=== PATIENT | female | born 1970 | race African-American/Black ===

== ENCOUNTER 2019-08-11 16:40 | Emergency (ER) | payer OTHER ==
--- NOTE | 2019-08-11 17:03 | PDOC ---
Attending Attestation - Resident Resident Name: PrestonValentin - ED Attending Attestation I have performed the following: I have examined & evaluated the patient, The case was reviewed & discussed with the resident, I agree w/resident's findings & plan, Exceptions are as noted - HPI HPI: 08/11/19 17:47 48yo female from [facility] sent in by Dr. Montano for eval of low bp and confusion in the office. Pt arrives aaox3, bp stable, HR 80s. Pt states she has been in a nh since having a spine surgery that went wrong at [facility] in the past. 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 Pt currently denies limon, cp/sob, no cough, no dysuria. no n/v/d, no abd pain. Pt denies all other complaints. Per the notes, pt had rectal bleeding in the spring - is on eliquis, and today was seen in the GI office where her bp was apparently low. Sent to the ER for further evaluation. - Physicial Exam PE: 08/11/19 17:56 Gen: aaox3, resting tremor to hands heent: MMM, posterior pharynx clear, PERRL, EOMI Neck: supple back: thoracic midline incision is well healed, no drainage rectal: no masses, no hemorrhoids, light brown soft stool ext: extended LE, paralyzed legs, tremor to UE b/l - Medical Decision Making 08/11/19 18:02 a/p: 48yo female sent from Dr. Montano for eval of low bp -bp stable -has a hx of rectal bleeding on eliquis - will send labs, h/h, stool for heme -will obtain ekg -will monitor and reassess -pt is awake, alert, oriented, nontoxic in appearance 08/13/19 20:34 pt was signed out to the night team pending labs and further eval
[2019-08-11 17:16] VITALS: BMI 31.8
--- NOTE | 2019-08-11 17:27 | PDOC ---
History of Present Illness - General Chief Complaint: Rectal Bleed Stated Complaint: GI BLEED Time Seen by Provider: 08/11/19 16:53 - History of Present Illness Initial Comments: 08/11/19 17:40 Pt is a 48 y/o F resident of [facility] with a documented PMH of paranoid schizophrenia, Hypertension, NIDDM, essential tremor, GERD, CHF, seizure d/o, paraplegia, and Vitamin D deficiency who presents to our Emergency Department from her [facility] physician's office-Dr Montano. Pt was reportedly hypotensive at 75 systolic and appeared altered during visit. Pt was initially referred to the [facility] physician by [facility] due to rectal bleeding in December of this year. Pt denies chest pain, shortness of breath, n/v/d, dysuria or abdominal pain. Past History - Past Medical History Allergies/Adverse Reactions: Allergies Allergy/AdvReac Type Severity Reaction Status Date / Time No Known Allergies Allergy Verified 08/11/19 16:52 Home Medications: Ambulatory Orders Acetaminophen [8Hr Arthritis Pain Relief] 650 mg PO BID PRN 08/11/19 Apixaban [Eliquis] 5 mg PO BID 08/11/19 Ascorbate Calcium [Vitamin C] 500 mg PO DAILY 08/11/19 Aspirin [ASA -] 81 mg PO DAILY 08/11/19 Baclofen [Lioresal -] 10 mg PO DAILY 08/11/19 Ergocalciferol (Vitamin D2) [Vitamin D2] 50,000 unit PO WEEKLY 08/11/19 Furosemide [Lasix] 40 mg PO BID 08/11/19 Gabapentin [Neurontin] 100 mg PO BID 08/11/19 Honey/Hydrocolloid Dressing [[facility] 2.4"X2.4" Drssng] 1 each TP BID 08/11 Levothyroxine [Synthroid -] 25 mcg PO DAILY 08/11/19 Metformin HCl [Glucophage] 500 mg PO BID 08/11/19 Methyl Salicylate/Menthol [Muscle Rub Cream] 1 applic TP BID PRN 08/11/19 Metoprolol Succinate [Toprol Xl] 25 mg PO DAILY 08/11/19 Petrolatum,White/Lanolin [Vitamin A & D Ointment] 454 gm TP BID PRN 08/11/19 Polyvinyl Alcohol [Artificial Tears] 15 ml OP BID 08/11/19 Risperidone [Risperdal] 1 mg PO BID 08/11/19 Spironolactone [Aldactone] 25 mg PO DAILY 08/11/19 Tizanidine HCl 4 mg PO TID 08/11/19 Valproic Acid [Depakene] 250 mg PO BID 08/11/19 Zinc Oxide 20% Topical Oint 454 gm NR BID PRN 08/11/19 Nitrofurantoin Monohyd/M-Cryst [Macrobid -] 100 mg PO BID 5 Days #9 capsule 02/23 - Psycho Social/Smoking Cessation Hx Smoking History: Unknown if ever smoked Hx Alcohol Use: No Drug/Substance Use Hx: No Review of Systems - Review of Systems Constitutional: No: Fever Respiratory: No: Shortness of Breath Cardiac (ROS): No: Chest Pain ABD/GI: No: Constipated, Diarrhea : No: Dysuria *Physical Exam - Vital Signs Last Vital Signs Temp Pulse Resp BP Pulse Ox 97.4 F L 77 14 111/81 97 08/11/19 16:40 08/11/19 16:40 08/11/19 16:40 08/11/19 16:40 08/11/19 16:40 - Physical Exam Comments: 08/11/19 18:18 AAOx3 NAD RRR S1S2 CTA b/l NDNT No facial grimacing to deep palpation Back: Midline surgical scar-well healed. Rectal: No masses or visualized blood (performed by Dr Byrd) EXT: Tremors b/l upper extremities. No CCE lower extremities. Heart Score/ECG Review - ECG Impressions Comment:: 08/12/19 00:22 nl sinus rhythm. Possible anterior infarct, age undetermined. QTc 431. Markos rate 74. ED Treatment Course - LABORATORY CBC & Chemistry Diagram: 08/11/19 20:15 08/11/19 17:55 Medical Decision Making - Medical Decision Making 08/11/19 17:38 Will order CBC w/ diff, fecal occult, CMP, Pt/INR, Type and screen, ekg, cxr pending urine preg 08/11/19 17:53 Call has been placed out to Dr Montano who initially sent patient to our ED [facility] was also called who informed our team that pt today was at [facility] to be evaluated for a history of rectal bleeding (December 2018). Pt was subsequently sent to ED by [facility] doctor per [facility] staff. 08/11/19 18:[address] Montano, pt's systolic BP was 75 in office. Pt was also lethargic and appeared confused. 08/11/19 19:19 Lactic acid 2.4. Will order 1 L NS. 08/11/19 21:41 Pt's H/H wnl- .2 Stool occult negative. Blood pressure 111/81 on admission. 08/11/19 21:42 08/11/19 21:49 Repeat BP now 146/77. Will discharge back to [facility]. 08/11/19 23:01 CXR--> mild elevation hemidiaphragm and subsegmental atelectasis right lung base. 08/11/19 23:43 Urinalysis reveals 3+ Leuk Esterase + Nitrates. 08/11/19 23:45 will administer macrobid 100 once and send pt with prescription. 08/12/19 00:19 Signed out care to Dr Kern Discharge - Discharge Information Problems reviewed: Yes Clinical Impression/Diagnosis: Rectal bleed Condition: Improved Disposition: [facility] FACILITY - Admission No - Additional Discharge Information Prescriptions: Nitrofurantoin Monohyd/M-Cryst [Macrobid -] 100 mg PO BID 5 Days #9 capsule - Follow up/Referral Referrals: Hema Babcock [Non Staff, Medical] - - Patient Discharge Instructions Patient Printed Discharge Instructions: DI for Hypotension Additional Instructions: You were evaluated in our Emergency Department for low blood pressure and possible rectal bleeding. You did not have any rectal bleeding. Your pressure has been within normal range. Please follow up with your primary care doctor this week. You were found to have a urinary tract infection. You have been prescribed an antibiotic- Macrobid. Please take this medication as prescribed. You have received 1 dose while you were in our Emergency Department. Please return to the Emergency Department if your begin to experience any abnormal symptoms including but not limited to chest pain, shortness of breath, nausea/vomiting, fever, chills, or rectal bleeding. - Post Discharge Activity
[2019-08-11 18:52] LABS: ALBUMIN 3.5 g/dl (3.4-5.0); BILIRUBIN,TOTAL 0.3 mg/dL (0.2-1); BLOOD UREA NITROGEN 8.5 mg/dL (7-18); CALCIUM 9.4 mg/dL (8.5-10.1); CREATININE 0.9 mg/dL (0.55-1.3); POTASSIUM 4.1 mmol/L (3.5-5.1); TOT PROT 7.6 g/dl (6.4-8.2)
[2019-08-11] MEDS ORDERED: SODIUM CHLORIDE 1,000 ML IV STA (19:18)
[2019-08-11 19:39] LABS: INR 1.14 (0.83-1.09); PROTHROMBIN TIME (PATIENT) 13.5 SEC (9.7-13.0)
[2019-08-11 19:42] LABS: ACTIVATED PTT 41.3 SECONDS (25.2-36.5)
[2019-08-11 20:37] LABS: BASO % 0.5 % (0-2.0); EOS % 0.7 % (0-4.5); HEMATOCRIT 33.2 % (32.4-45.2); LYMPH % 32.3 % (8-40); MCH 31.3 pg (25.7-33.7); MCHC 33.1 g/dl (32.0-36.0); MEAN CELL VOLUME 94.8 fl (80-96); MEAN PLT VOLUME 8.1 fl (7.5-11.1); MONO % 6.7 % (3.8-10.2); NEUT % 59.8 % (42.8-82.8); PLATELET COUNT 293 K/MM3 (134-434); WHITE BLOOD COUNT 8.6 K/mm3 (4.0-10.0)
[2019-08-11 23:35] LABS: EPI CELLS 0.4 /HPF (0-5/HPF); HYALINE CASTS 14 /lpf (0-8); URINE APPEARANCE CLOUDY; URINE BACTERIA 2902.3 /hpf (NEGATIVE); URINE BILIRUBIN NEGATIVE (NEGATIVE); URINE COLOR YELLOW; URINE GLUCOSE (UA) NEGATIVE (NEGATIVE); URINE KETONE NEGATIVE (NEGATIVE); URINE LEUK ESTERASE 3+ (NEGATIVE); URINE NITRITE POSITIVE (NEGATIVE); URINE PROTEIN NEGATIVE (NEGATIVE); URINE RBC 3 /hpf (0-4); URINE WBC 177 /hpf (0-5)
[2019-08-11] MEDS ORDERED: NITROFURANTOIN MACROCRYSTAL 50 MG CAPSULE (FP) PO SCH (23:45)
[2019-08-11] MEDS ORDERED: NITROFURANTOIN MACROCRYSTAL 50 MG CAPSULE (FP) ONE (23:53)
[2019-08-12 01:13] VITALS: BP 136/83; PULSE 72; TEMP 98.4
--- NOTE | 2019-08-12 09:17 | EKG ---
Test Reason : Blood Pressure : / mmHG Vent. Rate : 076 BPM Atrial Rate : 076 BPM P-R Int : 124 ms QRS Dur : 074 ms QT Int : 350 ms P-R-T Axes : 021 -24 -31 degrees QTc Int : 393 ms Poor data quality Cannot asses rhythm POSSIBLE ANTERIOR INFARCT (CITED ON OR BEFORE 04-AUG-2010) ABNORMAL ECG Confirmed by MD Miriam, Alok ([id number]) on 08/12/2019 9:17:04 AM Referred By: Confirmed By:Alok Pineda MD
== END 2019-08-12 01:45 ==
LOC: JER 16:40
PROC: 3E0337Z Introduction of Electrolytic and Water Balance Substance into Peripheral Vein, Percutaneous Approach (ICD-10-PCS; principal; 2019-08-11)
DX: I95.9 Hypotension, unspecified (principal); K62.5 Hemorrhage of anus and rectum; I11.0 Hypertensive heart disease with heart failure; I50.9 Heart failure, unspecified; E11.9 Type 2 diabetes mellitus without complications; Z79.84 Long term (current) use of oral hypoglycemic drugs; K21.9 Gastro-esophageal reflux disease without esophagitis; G25.0 Essential tremor; E03.9 Hypothyroidism, unspecified; F20.0 Paranoid schizophrenia; G40.909 Epilepsy, unspecified, not intractable, without status epilepticus; E55.9 Vitamin D deficiency, unspecified; G82.20 Paraplegia, unspecified
CPT/HCPCS: 36415; 71045-TC-FY; 80053; 80164; 81003; 82272; 82962; 83605; 84703; 85025; 85610; 85730; 86850; 86900; 86901; 87040; 87077; 87086; 87186; 93005; 93010; 96360; 99284-25; J7030

== ENCOUNTER 2022-06-19 20:17 | Emergency (ER) | payer OTHER ==
[2022-06-19 20:30] VITALS: BMI 26.4
[2022-06-19 21:45] LABS: BASO % 0.3 % (0-2.0); EOS % 0.6 % (0-4.5); HEMATOCRIT 30.2 % (32.4-45.2); HEMOGLOBIN 9.6 GM/dL (10.7-15.3); LYMPH % 26.6 % (8-40); MCH 28.6 pg (25.7-33.7); MCHC 31.9 g/dl (32.0-36.0); MEAN CELL VOLUME 89.9 fl (80-96); MEAN PLT VOLUME 7.9 fl (7.5-11.1); MONO % 9.4 % (3.8-10.2); NEUT % 63.1 % (42.8-82.8); PLATELET COUNT 188 10^3/uL (134-434); RBC 3.36 M/mm3 (3.60-5.2); RDW 17.4 % (11.6-15.6); WHITE BLOOD COUNT 8.1 K/mm3 (4.0-10.0)
[2022-06-19 22:13] LABS: CHLORIDE 104 mmol/L (98-107); SODIUM 141 mmol/L (136-145)
[2022-06-19 22:15] LABS: ALBUMIN 2.8 g/dl (3.4-5.0); CALCIUM 8.7 mg/dL (8.5-10.1)
[2022-06-19 22:16] LABS: ANION GAP 7 MMOL/L (8-16); BLOOD UREA NITROGEN 10.9 mg/dL (7-18); CO2 29 mmol/L (21-32); GLUCOSE,RANDOM 103 mg/dL (74-106)
[2022-06-19 22:18] LABS: SGPT/ALT 7 U/L (13-61)
[2022-06-19 22:19] LABS: CREATININE 0.7 mg/dL (0.55-1.3); SGOT/AST 9 U/L (15-37)
[2022-06-19 22:20] LABS: BILIRUBIN,TOTAL 0.3 mg/dL (0.2-1); TOT PROT 6.6 g/dl (6.4-8.2)
[2022-06-19 22:21] LABS: ALK PHOS 58 U/L (45-117)
[2022-06-19 22:30] LABS: URINE APPEARANCE CLEAR; URINE BILIRUBIN NEGATIVE (NEGATIVE); URINE COLOR YELLOW; URINE GLUCOSE (UA) NEGATIVE (NEGATIVE); URINE KETONE NEGATIVE (NEGATIVE); URINE LEUK ESTERASE NEGATIVE (NEGATIVE); URINE NITRITE NEGATIVE (NEGATIVE); URINE PROTEIN NEGATIVE (NEGATIVE)
[2022-06-19] MEDS ORDERED: MAG HYDROX/AL HYDROX/SIMETH -MYLANTA- ORAL SUSPENSION PO ONE (23:46)
[2022-06-19] MEDS ORDERED: FAMOTIDINE 20 MG/50 ML IVPB 20 MG/50 ML MG IVPB ONE ×2 (23:46→23:58)
[2022-06-19] MEDS ORDERED: ACETAMINOPHEN 1000 MG/100 ML BAG IVPB ONE (23:47)
[2022-06-19] MEDS ORDERED: risperiDONE 1 MG TABLET PO ONE (23:52)
[2022-06-19] MEDS ORDERED: risperiDONE 0.5 MG TABLET ONE (23:57)
[2022-06-19] MEDS ORDERED: ACETAMINOPHEN INJECTION 100 ML IVPB ONE (23:58)
[2022-06-19] MEDS ORDERED: MAG HYDROX/AL HYDROX/SIMETH 30 ML UNIT-DOSE CUP ONE (23:58)
[2022-06-20] MEDS ORDERED: MAGNESIUM SULF 50% (8.12 MEQ/2 ML-1 GM VIAL) IVPB ONE (00:06)
[2022-06-20] MEDS ORDERED: MAGNESIUM SULFATE IN WATER 2 GM/50 ML IVPB IVPB ONE (00:09)
[2022-06-20 01:29] VITALS: BP 95/76; PULSE 88; RESP 17; TEMP 98.6
== END 2022-06-20 04:15 | disposition home or self-care (01) ==
LOC: JER 20:17
PROC: 3E033GC Introduction of Other Therapeutic Substance into Peripheral Vein, Percutaneous Approach (ICD-10-PCS; principal; 2022-06-19)
DX: R07.9 Chest pain, unspecified (principal)
CPT/HCPCS: 0241U-QW; 36415; 71045-TC-FY; 80053; 81003; 84484; 84703; 85025; 87086; 93005; 93010; 99285-25

== ENCOUNTER 2022-08-27 17:00 | Inpatient (IN) | payer OTHER ==
[2022-08-27 18:35] LABS: INR 1.36 (0.83-1.09); PROTHROMBIN TIME (PATIENT) 15.7 SEC (9.7-13.0)
[2022-08-27 18:38] LABS: ACTIVATED PTT 33.4 SECONDS (25.2-36.5); BASO % 0.2 % (0-2.0); EOS % 0.7 % (0-4.5); HEMATOCRIT 18.1 % (32.4-45.2); LYMPH % 24.9 % (8-40); MCH 28.8 pg (25.7-33.7); MCHC 31.3 g/dl (32.0-36.0); MEAN PLT VOLUME 7.7 fl (7.5-11.1); NEUT % 62.2 % (42.8-82.8); PLATELET COUNT 278 10^3/uL (134-434); RBC 1.97 M/mm3 (3.60-5.2); RDW 18.1 % (11.6-15.6); WHITE BLOOD COUNT 9.2 K/mm3 (4.0-10.0)
[2022-08-27 18:39] LABS: HEMOGLOBIN 5.7 GM/dL (10.7-15.3)
[2022-08-27 18:45] LABS: CHLORIDE 105 mmol/L (98-107); SODIUM 141 mmol/L (136-145)
[2022-08-27 18:48] LABS: ALBUMIN 1.3 g/dl (3.4-5.0); ANION GAP 6 MMOL/L (8-16); CALCIUM 7.3 mg/dL (8.5-10.1); CO2 30 mmol/L (21-32); GLUCOSE,RANDOM 108 mg/dL (74-106)
[2022-08-27 18:51] LABS: CREATININE 0.3 mg/dL (0.55-1.3); SGOT/AST 8 U/L (15-37); SGPT/ALT < 6 U/L (13-61)
[2022-08-27 18:53] LABS: BILIRUBIN,TOTAL 0.2 mg/dL (0.2-1); TOT PROT 4.7 g/dl (6.4-8.2)
[2022-08-27 18:55] LABS: ALK PHOS 56 U/L (45-117)
[2022-08-27] MEDS ORDERED: AZITHROMYCIN IVPB 500 MG in DEXTROSE 5%-WATER - 250 ML IVPB ONE (19:45)
[2022-08-27] MEDS ORDERED: CEFTRIAXONE 1,000 MG in DEXTROSE 5%-WATER - 50 ML IVPB ONE (19:45)
[2022-08-27] MEDS ORDERED: VANCOMYCIN 1,000 MG in DEXTROSE 5%-WATER - 250 ML IVPB SCH (22:45)
[2022-08-27] MEDS ORDERED: BENZTROPINE MESYLATE 0.5 MG TABLET (FP) PO SCH (22:55)
[2022-08-27] MEDS ORDERED: VANCOMYCIN/WATER FOR INJ (PEG) 1,000 MG/200 ML BAG IVPB SCH (23:00)
[2022-08-27] MEDS ORDERED: BENZTROPINE MESYLATE 1 MG TABLET PO SCH (23:00)
[2022-08-27] MEDS ORDERED: VANCOMYCIN PREMIX 1.5 GM 1,500 MG/300 ML BAG IVPB ONE (23:45)
[2022-08-28] MEDS ORDERED: PIPERACILLIN/TAZOB 3.375 GM 3.375 GM/50 ML BAG IVPB ONE ×3 (00:08→08:53)
[2022-08-28] MEDS: PIPERACILLIN/TAZOB 3.375 GM 3.375 GM in DEXTROSE 5%-WATER - 50 ML IVPB SCH ×5 (00:13→22:06)
[2022-08-28] MEDS ORDERED: GABAPENTIN 100 MG CAPSULE ONE (00:17)
[2022-08-28] MEDS: GABAPENTIN 100 MG CAPSULE PO SCH ×3 (00:25→22:13)
[2022-08-28] MEDS: BENZTROPINE MESYLATE 0.5 MG TABLET (FP) PO SCH ×3 (00:25→22:19)
[2022-08-28] MEDS: VALPROIC ACID 250 MG CAPSULE PO SCH ×3 (00:25→23:08)
[2022-08-28] MEDS: risperiDONE 1 MG TABLET PO SCH ×3 (00:25→22:13)
[2022-08-28 00:51] LABS: RETICULOCYTES 1.81 % (0.5-1.5)
[2022-08-28] MEDS ORDERED: PIPERACILLIN/TAZOB 3.375 GM 3.375 GM in DEXTROSE 5%-WATER - 50 ML IVPB SCH (02:00)
[2022-08-28 02:37] LABS: IRON SERUM 15 ug/dL (50-175); TOTAL IRON BINDING CAPACITY 149 ug/dL (250-450)
[2022-08-28 03:25] LABS: LDH 210 U/L (84-246)
[2022-08-28 07:26] LABS: BASO % 0.2 % (0-2.0); EOS % 0.8 % (0-4.5); HEMATOCRIT 25.2 % (32.4-45.2); HEMOGLOBIN 8.5 GM/dL (10.7-15.3); LYMPH % 29.5 % (8-40); MCH 30.8 pg (25.7-33.7); MCHC 33.8 g/dl (32.0-36.0); MEAN CELL VOLUME 91.1 fl (80-96); MEAN PLT VOLUME 7.3 fl (7.5-11.1); MONO % 11.1 % (3.8-10.2); NEUT % 58.4 % (42.8-82.8); PLATELET COUNT 264 10^3/uL (134-434); RBC 2.77 M/mm3 (3.60-5.2); RDW 15.4 % (11.6-15.6); WHITE BLOOD COUNT 10.1 K/mm3 (4.0-10.0)
[2022-08-28 07:41] LABS: CHLORIDE 104 mmol/L (98-107); SODIUM 141 mmol/L (136-145)
[2022-08-28 07:54] LABS: ALBUMIN 1.3 g/dl (3.4-5.0); ANION GAP 8 MMOL/L (8-16); BLOOD UREA NITROGEN 8.1 mg/dL (7-18); CO2 29 mmol/L (21-32)
[2022-08-28 07:55] LABS: GLUCOSE,RANDOM 90 mg/dL (74-106); MAGNESIUM 2.3 mg/dL (1.8-2.4)
[2022-08-28 07:57] LABS: BILIRUBIN,TOTAL 0.5 mg/dL (0.2-1); CREATININE 0.3 mg/dL (0.55-1.3); TOT PROT 4.7 g/dl (6.4-8.2)
[2022-08-28 07:58] LABS: SGOT/AST 6 U/L (15-37)
[2022-08-28 08:00] LABS: ALK PHOS 54 U/L (45-117)
[2022-08-28 08:04] LABS: SGPT/ALT < 6 U/L (13-61)
[2022-08-28] MEDS: INSULIN SLIDING SCALE (NOVOLOG) 1 VIAL SQ SCH ×4 (08:51→22:18)
[2022-08-28] MEDS ORDERED: LEVOTHYROXINE NA 25 MCG TABLET (FP) ONE (09:25)
[2022-08-28] MEDS: LEVOTHYROXINE NA 25 MCG TABLET (FP) PO SCH (09:30)
[2022-08-28] MEDS ORDERED: VANCOMYCIN PREMIX 1.5 GM 1,500 MG/300 ML BAG IVPB SCH (11:00)
[2022-08-28] MEDS: FERROUS SO4 325 MG TABLET (FP) PO SCH (11:18)
[2022-08-28] MEDS: metoPROLOL SUCCINATE 25 MG TAB.SR.24H (FP) PO SCH (11:18)
[2022-08-28] MEDS: COLLAGENASE CLOSTRIDIUM HIST. 30 GRAMS TUBE TP SCH (11:19)
[2022-08-28] MEDS: SPIRONOLACTONE 25 MG TABLET PO SCH (11:19)
[2022-08-28] MEDS: ZINC OXIDE 20% TOPICAL OINTMENT 30 GM TUBE TP SCH ×2 (11:27→22:21)
[2022-08-28] MEDS: ATORVASTATIN CA 10 MG TABLET (FP) PO SCH (22:13)
[2022-08-28] MEDS: PRIMIDONE 50 MG TABLET PO SCH (22:20)
[2022-08-28] MEDS: VALPROATE SODIUM 250 MG/5 ML UNIT DOSE CUP PO SCH (22:32)
[2022-08-28] MEDS: VANCOMYCIN HCL 1,500 MG in DEXTROSE 5%-WATER - 250 ML IVPB SCH (23:07)
[2022-08-28] MEDS: BENZOCAINE/MENTH/CETYLPYRD CL 1 EACH LOZENGE MM PRN (23:50)
[2022-08-29] MEDS: LEVOTHYROXINE NA 25 MCG TABLET (FP) PO SCH (06:25)
[2022-08-29] MEDS: INSULIN SLIDING SCALE (NOVOLOG) 1 VIAL SQ SCH ×4 (06:25→22:18)
[2022-08-29] MEDS: VALPROATE SODIUM 250 MG/5 ML UNIT DOSE CUP PO SCH ×2 (10:35→22:17)
[2022-08-29] MEDS: BENZTROPINE MESYLATE 0.5 MG TABLET (FP) PO SCH (10:36)
[2022-08-29] MEDS: GABAPENTIN 100 MG CAPSULE PO SCH ×2 (10:37→22:17)
[2022-08-29] MEDS: SPIRONOLACTONE 25 MG TABLET PO SCH (10:37)
[2022-08-29] MEDS: FERROUS SO4 325 MG TABLET (FP) PO SCH (10:37)
[2022-08-29] MEDS: risperiDONE 1 MG TABLET PO SCH ×2 (10:37→22:17)
[2022-08-29] MEDS: ZINC OXIDE 20% TOPICAL OINTMENT 30 GM TUBE TP SCH (10:51)
[2022-08-29] MEDS: metoPROLOL SUCCINATE 25 MG TAB.SR.24H (FP) PO SCH (11:23)
[2022-08-29] MEDS: COLLAGENASE CLOSTRIDIUM HIST. 30 GRAMS TUBE TP SCH (14:30)
[2022-08-29] MEDS: AMINO ACIDS/PROTEIN HYDROLYS 30 ML LIQUID.PKT PO SCH (16:37)
[2022-08-29] MEDS: ATORVASTATIN CA 10 MG TABLET (FP) PO SCH (22:17)
[2022-08-29] MEDS: PRIMIDONE 50 MG TABLET PO SCH (22:18)
[2022-08-30] MEDS: BENZTROPINE MESYLATE 0.5 MG TABLET (FP) PO SCH ×3 (00:22→22:36)
[2022-08-30] MEDS: ZINC OXIDE 20% TOPICAL OINTMENT 30 GM TUBE TP SCH ×3 (00:23→22:38)
[2022-08-30] MEDS: LEVOTHYROXINE NA 25 MCG TABLET (FP) PO SCH (06:41)
[2022-08-30] MEDS: INSULIN SLIDING SCALE (NOVOLOG) 1 VIAL SQ SCH ×4 (06:41→22:37)
[2022-08-30] MEDS: AMINO ACIDS/PROTEIN HYDROLYS 30 ML LIQUID.PKT PO SCH ×2 (08:12→17:24)
[2022-08-30] MEDS: VALPROATE SODIUM 250 MG/5 ML UNIT DOSE CUP PO SCH ×2 (09:54→22:35)
[2022-08-30] MEDS: FERROUS SO4 325 MG TABLET (FP) PO SCH (09:55)
[2022-08-30] MEDS: GABAPENTIN 100 MG CAPSULE PO SCH ×2 (09:55→22:35)
[2022-08-30] MEDS: metoPROLOL SUCCINATE 25 MG TAB.SR.24H (FP) PO SCH (09:55)
[2022-08-30] MEDS: SPIRONOLACTONE 25 MG TABLET PO SCH (09:55)
[2022-08-30] MEDS: MULTIVITAMINS (DAILY MVI) TABLET (FP) PO SCH (09:55)
[2022-08-30] MEDS: risperiDONE 1 MG TABLET PO SCH ×2 (09:57→22:35)
[2022-08-30] MEDS: BENZTROPINE MESYLATE PO SCH ×2 (09:58→22:46)
[2022-08-30] MEDS: COLLAGENASE CLOSTRIDIUM HIST. 30 GRAMS TUBE TP SCH (11:17)
[2022-08-30] MEDS ORDERED: VANCOMYCIN 1 GM/200 ML PREMIX BAG (RESTRICTED TO ID ONLY) IVPB ONE (12:00)
[2022-08-30] MEDS: PIPERACILLIN/TAZOB 3.375 GM 3.375 GM in DEXTROSE 5%-WATER - 50 ML IVPB SCH ×2 (13:52→17:23)
[2022-08-30] MEDS ORDERED: PIPERACILLIN/TAZOB 3.375 GM 3.375 GM in DEXTROSE 5%-WATER - 50 ML IVPB SCH (18:00)
[2022-08-30] MEDS: PRIMIDONE 50 MG TABLET PO SCH (22:35)
[2022-08-30] MEDS: ATORVASTATIN CA 10 MG TABLET (FP) PO SCH (22:35)
[2022-08-31] MEDS: PIPERACILLIN/TAZOB 3.375 GM 3.375 GM in DEXTROSE 5%-WATER - 50 ML IVPB SCH ×3 (01:44→17:33)
[2022-08-31] MEDS: LEVOTHYROXINE NA 25 MCG TABLET (FP) PO SCH (06:34)
[2022-08-31] MEDS: INSULIN SLIDING SCALE (NOVOLOG) 1 VIAL SQ SCH ×4 (06:37→21:44)
[2022-08-31] MEDS ORDERED: PROPOFOL 20 ML ONE (08:26)
[2022-08-31 08:57] LABS: BASO % 0.3 % (0-2.0); EOS % 1.5 % (0-4.5); HEMATOCRIT 26.3 % (32.4-45.2); HEMOGLOBIN 8.5 GM/dL (10.7-15.3); LYMPH % 32.2 % (8-40); MCH 30.6 pg (25.7-33.7); MCHC 32.4 g/dl (32.0-36.0); MEAN CELL VOLUME 94.4 fl (80-96); MEAN PLT VOLUME 7.4 fl (7.5-11.1); MONO % 14.2 % (3.8-10.2); NEUT % 51.8 % (42.8-82.8); PLATELET COUNT 327 10^3/uL (134-434); RBC 2.79 M/mm3 (3.60-5.2); RDW 16.5 % (11.6-15.6)
[2022-08-31] MEDS: AMINO ACIDS/PROTEIN HYDROLYS 30 ML LIQUID.PKT PO SCH ×2 (09:01→17:34)
[2022-08-31 09:13] LABS: CHLORIDE 108 mmol/L (98-107); SODIUM 145 mmol/L (136-145)
[2022-08-31 09:18] LABS: CALCIUM 7.8 mg/dL (8.5-10.1)
[2022-08-31 09:19] LABS: ALBUMIN 1.4 g/dl (3.4-5.0); ANION GAP 6 MMOL/L (8-16); BLOOD UREA NITROGEN 7.9 mg/dL (7-18); CO2 31 mmol/L (21-32); GLUCOSE,RANDOM 96 mg/dL (74-106)
[2022-08-31 09:20] LABS: TRIGLYCERIDES 118 mg/dL (0-150)
[2022-08-31 09:21] LABS: CHOLESTEROL 72 mg/dL (50-200); SGOT/AST 9 U/L (15-37)
[2022-08-31 09:22] LABS: CREATININE 0.3 mg/dL (0.55-1.3); LDL CHOLESTEROL (ONLY SJRH) 33 mg/dL (5-100); TOT PROT 4.8 g/dl (6.4-8.2)
[2022-08-31 09:23] LABS: ALK PHOS 56 U/L (45-117); HDL CHOLESTEROL 23 mg/dL (40-60)
[2022-08-31 09:24] LABS: BILIRUBIN,TOTAL 0.4 mg/dL (0.2-1)
[2022-08-31 09:25] LABS: IRON SERUM 20 ug/dL (50-175)
[2022-08-31 09:26] LABS: TOTAL IRON BINDING CAPACITY 194 ug/dL (250-450)
[2022-08-31 09:46] LABS: SGPT/ALT < 6 U/L (13-61)
[2022-08-31] MEDS: metoPROLOL SUCCINATE 25 MG TAB.SR.24H (FP) PO SCH (10:37)
[2022-08-31] MEDS: VALPROATE SODIUM 250 MG/5 ML UNIT DOSE CUP PO SCH ×2 (10:38→21:36)
[2022-08-31] MEDS: GABAPENTIN 100 MG CAPSULE PO SCH ×2 (10:38→21:34)
[2022-08-31] MEDS: BENZTROPINE MESYLATE PO SCH ×2 (10:38→21:35)
[2022-08-31] MEDS: FERROUS SO4 325 MG TABLET (FP) PO SCH (10:38)
[2022-08-31] MEDS: risperiDONE 1 MG TABLET PO SCH ×2 (10:38→21:36)
[2022-08-31] MEDS: COLLAGENASE CLOSTRIDIUM HIST. 30 GRAMS TUBE TP SCH (10:39)
[2022-08-31] MEDS: MULTIVITAMINS (DAILY MVI) TABLET (FP) PO SCH (10:39)
[2022-08-31] MEDS: ZINC OXIDE 20% TOPICAL OINTMENT 30 GM TUBE TP SCH ×2 (10:39→21:44)
[2022-08-31] MEDS: SPIRONOLACTONE 25 MG TABLET PO SCH (10:39)
[2022-08-31] MEDS: BENZOCAINE/MENTH/CETYLPYRD CL 1 EACH LOZENGE MM PRN (21:34)
[2022-08-31] MEDS: ATORVASTATIN CA 10 MG TABLET (FP) PO SCH (21:34)
[2022-08-31] MEDS: PRIMIDONE 50 MG TABLET PO SCH (21:35)
[2022-09-01] MEDS: PIPERACILLIN/TAZOB 3.375 GM 3.375 GM in DEXTROSE 5%-WATER - 50 ML IVPB SCH ×3 (01:35→17:33)
[2022-09-01] MEDS: INSULIN SLIDING SCALE (NOVOLOG) 1 VIAL SQ SCH ×4 (06:19→22:24)
[2022-09-01] MEDS: LEVOTHYROXINE NA 25 MCG TABLET (FP) PO SCH (06:47)
[2022-09-01 09:46] LABS: BASO % 0.3 % (0-2.0); EOS % 1.9 % (0-4.5); HEMATOCRIT 26.5 % (32.4-45.2); HEMOGLOBIN 8.4 GM/dL (10.7-15.3); LYMPH % 27.6 % (8-40); MCH 29.8 pg (25.7-33.7); MCHC 31.6 g/dl (32.0-36.0); MEAN CELL VOLUME 94.4 fl (80-96); MEAN PLT VOLUME 7.4 fl (7.5-11.1); MONO % 13.2 % (3.8-10.2); PLATELET COUNT 425 10^3/uL (134-434); RDW 16.4 % (11.6-15.6); WHITE BLOOD COUNT 9.9 K/mm3 (4.0-10.0)
[2022-09-01] MEDS: MULTIVITAMINS (DAILY MVI) TABLET (FP) PO SCH (09:57)
[2022-09-01] MEDS: metoPROLOL SUCCINATE 25 MG TAB.SR.24H (FP) PO SCH (09:57)
[2022-09-01] MEDS: AMINO ACIDS/PROTEIN HYDROLYS 30 ML LIQUID.PKT PO SCH ×2 (09:57→17:33)
[2022-09-01] MEDS: VALPROATE SODIUM 250 MG/5 ML UNIT DOSE CUP PO SCH ×2 (09:57→22:26)
[2022-09-01] MEDS: SPIRONOLACTONE 25 MG TABLET PO SCH (09:57)
[2022-09-01] MEDS: FERROUS SO4 325 MG TABLET (FP) PO SCH (09:57)
[2022-09-01] MEDS: GABAPENTIN 100 MG CAPSULE PO SCH ×2 (09:57→22:26)
[2022-09-01] MEDS: BENZTROPINE MESYLATE PO SCH ×2 (09:58→22:27)
[2022-09-01] MEDS: risperiDONE 1 MG TABLET PO SCH ×2 (09:59→22:27)
[2022-09-01 10:00] LABS: CHLORIDE 104 mmol/L (98-107); SODIUM 140 mmol/L (136-145)
[2022-09-01] MEDS: COLLAGENASE CLOSTRIDIUM HIST. 30 GRAMS TUBE TP SCH (10:01)
[2022-09-01 10:09] LABS: CALCIUM 7.9 mg/dL (8.5-10.1)
[2022-09-01 10:10] LABS: ALBUMIN 1.4 g/dl (3.4-5.0); ANION GAP 7 MMOL/L (8-16); BLOOD UREA NITROGEN 9.2 mg/dL (7-18); CO2 29 mmol/L (21-32); GLUCOSE,RANDOM 178 mg/dL (74-106)
[2022-09-01 10:13] LABS: CREATININE 0.4 mg/dL (0.55-1.3); SGOT/AST 9 U/L (15-37)
[2022-09-01 10:14] LABS: BILIRUBIN,TOTAL 0.6 mg/dL (0.2-1); TOT PROT 5.1 g/dl (6.4-8.2)
[2022-09-01 10:16] LABS: ALK PHOS 61 U/L (45-117)
[2022-09-01 10:34] LABS: SGPT/ALT < 6 U/L (13-61)
[2022-09-01] MEDS ORDERED: INSULIN (NOVOLOG) ASPART 100 UNITS/ML 10ML VIAL ONE (11:02)
[2022-09-01] MEDS: ZINC OXIDE 20% TOPICAL OINTMENT 30 GM TUBE TP SCH ×2 (12:07→22:28)
[2022-09-01] MEDS: ATORVASTATIN CA 10 MG TABLET (FP) PO SCH (22:26)
[2022-09-01] MEDS: PRIMIDONE 50 MG TABLET PO SCH (22:27)
[2022-09-02] MEDS: PIPERACILLIN/TAZOB 3.375 GM 3.375 GM in DEXTROSE 5%-WATER - 50 ML IVPB SCH ×3 (02:46→17:29)
[2022-09-02] MEDS: INSULIN SLIDING SCALE (NOVOLOG) 1 VIAL SQ SCH ×4 (06:26→22:24)
[2022-09-02] MEDS: LEVOTHYROXINE NA 25 MCG TABLET (FP) PO SCH (06:27)
[2022-09-02] MEDS: SPIRONOLACTONE 25 MG TABLET PO SCH (10:06)
[2022-09-02] MEDS: BENZTROPINE MESYLATE PO SCH ×2 (10:07→22:22)
[2022-09-02] MEDS: AMINO ACIDS/PROTEIN HYDROLYS 30 ML LIQUID.PKT PO SCH ×2 (10:08→17:28)
[2022-09-02] MEDS: GABAPENTIN 100 MG CAPSULE PO SCH ×2 (10:08→22:22)
[2022-09-02] MEDS: FERROUS SO4 325 MG TABLET (FP) PO SCH (10:08)
[2022-09-02] MEDS: VALPROATE SODIUM 250 MG/5 ML UNIT DOSE CUP PO SCH ×2 (10:08→22:21)
[2022-09-02] MEDS: risperiDONE 1 MG TABLET PO SCH ×2 (10:09→22:24)
[2022-09-02] MEDS: MULTIVITAMINS (DAILY MVI) TABLET (FP) PO SCH (10:10)
[2022-09-02] MEDS: metoPROLOL SUCCINATE 25 MG TAB.SR.24H (FP) PO SCH (10:10)
[2022-09-02] MEDS ORDERED: INSULIN (NOVOLOG) ASPART 100 UNITS/ML 10ML VIAL ONE (11:38)
[2022-09-02] MEDS: COLLAGENASE CLOSTRIDIUM HIST. 30 GRAMS TUBE TP SCH (14:19)
[2022-09-02] MEDS: ZINC OXIDE 20% TOPICAL OINTMENT 30 GM TUBE TP SCH ×2 (14:20→22:25)
[2022-09-02] MEDS: BENZOCAINE/MENTH/CETYLPYRD CL 1 EACH LOZENGE MM PRN (18:52)
[2022-09-02] MEDS: ATORVASTATIN CA 10 MG TABLET (FP) PO SCH (22:22)
[2022-09-02] MEDS: ASCORBIC ACID 500 MG TABLET (FP) PO SCH (22:22)
[2022-09-02] MEDS: PRIMIDONE 50 MG TABLET PO SCH (22:23)
[2022-09-03] MEDS: PIPERACILLIN/TAZOB 3.375 GM 3.375 GM in DEXTROSE 5%-WATER - 50 ML IVPB SCH ×3 (01:44→18:23)
[2022-09-03] MEDS: LEVOTHYROXINE NA 25 MCG TABLET (FP) PO SCH (06:02)
[2022-09-03] MEDS: INSULIN SLIDING SCALE (NOVOLOG) 1 VIAL SQ SCH ×4 (06:03→21:34)
[2022-09-03 09:25] LABS: BASO % 1.1 % (0-2.0); EOS % 1.7 % (0-4.5); HEMOGLOBIN 8.1 GM/dL (10.7-15.3); LYMPH % 34.3 % (8-40); MCH 29.5 pg (25.7-33.7); MCHC 31.1 g/dl (32.0-36.0); MEAN CELL VOLUME 94.7 fl (80-96); MEAN PLT VOLUME 7.3 fl (7.5-11.1); MONO % 15.7 % (3.8-10.2); NEUT % 47.2 % (42.8-82.8); PLATELET COUNT 432 10^3/uL (134-434); RBC 2.74 M/mm3 (3.60-5.2); RDW 16.6 % (11.6-15.6); WHITE BLOOD COUNT 8.9 K/mm3 (4.0-10.0)
[2022-09-03 09:42] LABS: SODIUM 144 mmol/L (136-145)
[2022-09-03 09:45] LABS: ALBUMIN 1.5 g/dl (3.4-5.0)
[2022-09-03 09:46] LABS: BLOOD UREA NITROGEN 8.7 mg/dL (7-18); CO2 31 mmol/L (21-32); GLUCOSE,RANDOM 95 mg/dL (74-106)
[2022-09-03 09:48] LABS: SGPT/ALT < 6 U/L (13-61)
[2022-09-03 09:49] LABS: CREATININE 0.5 mg/dL (0.55-1.3); SGOT/AST 10 U/L (15-37)
[2022-09-03 09:50] LABS: BILIRUBIN,TOTAL 0.4 mg/dL (0.2-1); TOT PROT 5.1 g/dl (6.4-8.2)
[2022-09-03 09:51] LABS: ALK PHOS 70 U/L (45-117)
[2022-09-03 10:03] LABS: ANION GAP 5 MMOL/L (8-16); CHLORIDE 108 mmol/L (98-107)
[2022-09-03] MEDS: ZINC SULFATE 220 MG CAPSULE (FP) PO SCH (10:46)
[2022-09-03] MEDS: MULTIVITAMINS (DAILY MVI) TABLET (FP) PO SCH (10:46)
[2022-09-03] MEDS: ASCORBIC ACID 500 MG TABLET (FP) PO SCH ×2 (10:46→21:19)
[2022-09-03] MEDS: SPIRONOLACTONE 25 MG TABLET PO SCH (10:46)
[2022-09-03] MEDS: VALPROATE SODIUM 250 MG/5 ML UNIT DOSE CUP PO SCH ×2 (10:46→21:18)
[2022-09-03] MEDS: metoPROLOL SUCCINATE 25 MG TAB.SR.24H (FP) PO SCH (10:46)
[2022-09-03] MEDS: AMINO ACIDS/PROTEIN HYDROLYS 30 ML LIQUID.PKT PO SCH ×2 (10:46→18:21)
[2022-09-03] MEDS: GABAPENTIN 100 MG CAPSULE PO SCH ×2 (10:47→21:19)
[2022-09-03] MEDS: FERROUS SO4 325 MG TABLET (FP) PO SCH (10:47)
[2022-09-03] MEDS: ZINC OXIDE 20% TOPICAL OINTMENT 30 GM TUBE TP SCH ×2 (10:48→21:19)
[2022-09-03] MEDS: COLLAGENASE CLOSTRIDIUM HIST. 30 GRAMS TUBE TP SCH (10:48)
[2022-09-03] MEDS: BENZTROPINE MESYLATE PO SCH ×2 (10:51→21:18)
[2022-09-03] MEDS: risperiDONE 1 MG TABLET PO SCH ×2 (10:52→21:18)
[2022-09-03] MEDS ORDERED: VANCOMYCIN 1 GRAM (PRE-DOCKED) 1,000 MG/250 ML BAG IVPB SCH (19:00)
[2022-09-03] MEDS ORDERED: VANCOMYCIN/WATER FOR INJ (PEG) 1,000 MG/250 ML BAG IVPB SCH (20:48)
[2022-09-03] MEDS: PRIMIDONE 50 MG TABLET PO SCH (21:18)
[2022-09-03] MEDS: ATORVASTATIN CA 10 MG TABLET (FP) PO SCH (21:19)
[2022-09-04] MEDS: PIPERACILLIN/TAZOB 3.375 GM 3.375 GM in DEXTROSE 5%-WATER - 50 ML IVPB SCH ×3 (01:28→20:37)
[2022-09-04] MEDS: INSULIN SLIDING SCALE (NOVOLOG) 1 VIAL SQ SCH ×4 (06:02→21:53)
[2022-09-04] MEDS: LEVOTHYROXINE NA 25 MCG TABLET (FP) PO SCH (06:02)
[2022-09-04 09:58] LABS: BASO % 0.4 % (0-2.0); EOS % 2.6 % (0-4.5); HEMATOCRIT 24.8 % (32.4-45.2); HEMOGLOBIN 7.8 GM/dL (10.7-15.3); LYMPH % 22.6 % (8-40); MCH 29.7 pg (25.7-33.7); MCHC 31.5 g/dl (32.0-36.0); MEAN CELL VOLUME 94.2 fl (80-96); MEAN PLT VOLUME 7.2 fl (7.5-11.1); NEUT % 60.4 % (42.8-82.8); PLATELET COUNT 428 10^3/uL (134-434); RBC 2.63 M/mm3 (3.60-5.2); RDW 16.7 % (11.6-15.6); WHITE BLOOD COUNT 8.8 K/mm3 (4.0-10.0)
[2022-09-04 10:25] LABS: CHLORIDE 109 mmol/L (98-107); SODIUM 143 mmol/L (136-145)
[2022-09-04 10:27] LABS: CALCIUM 8.2 mg/dL (8.5-10.1)
[2022-09-04 10:28] LABS: ALBUMIN 1.5 g/dl (3.4-5.0); ANION GAP 5 MMOL/L (8-16); BLOOD UREA NITROGEN 7.4 mg/dL (7-18); CO2 30 mmol/L (21-32); GLUCOSE,RANDOM 140 mg/dL (74-106)
[2022-09-04 10:31] LABS: CREATININE 0.4 mg/dL (0.55-1.3); SGOT/AST 12 U/L (15-37); SGPT/ALT < 6 U/L (13-61)
[2022-09-04 10:33] LABS: BILIRUBIN,TOTAL 0.7 mg/dL (0.2-1)
[2022-09-04 10:34] LABS: ALK PHOS 77 U/L (45-117)
[2022-09-04] MEDS: VANCOMYCIN/WATER FOR INJ (PEG) 1,000 MG/200 ML BAG IVPB SCH ×2 (15:09→21:29)
[2022-09-04] MEDS: AMINO ACIDS/PROTEIN HYDROLYS 30 ML LIQUID.PKT PO SCH ×2 (15:09→18:35)
[2022-09-04] MEDS: metoPROLOL SUCCINATE 25 MG TAB.SR.24H (FP) PO SCH (15:10)
[2022-09-04] MEDS: VALPROATE SODIUM 250 MG/5 ML UNIT DOSE CUP PO SCH ×2 (15:10→21:31)
[2022-09-04] MEDS: MULTIVITAMINS (DAILY MVI) TABLET (FP) PO SCH (15:10)
[2022-09-04] MEDS: SPIRONOLACTONE 25 MG TABLET PO SCH (15:10)
[2022-09-04] MEDS: ZINC SULFATE 220 MG CAPSULE (FP) PO SCH (15:10)
[2022-09-04] MEDS: ASCORBIC ACID 500 MG TABLET (FP) PO SCH ×2 (15:10→21:31)
[2022-09-04] MEDS: FERROUS SO4 325 MG TABLET (FP) PO SCH (15:10)
[2022-09-04] MEDS: BENZTROPINE MESYLATE PO SCH ×2 (15:11→21:30)
[2022-09-04] MEDS: risperiDONE 1 MG TABLET PO SCH ×2 (15:11→21:30)
[2022-09-04] MEDS: GABAPENTIN 100 MG CAPSULE PO SCH ×2 (15:11→21:31)
[2022-09-04] MEDS: COLLAGENASE CLOSTRIDIUM HIST. 30 GRAMS TUBE TP SCH (15:12)
[2022-09-04] MEDS: ZINC OXIDE 20% TOPICAL OINTMENT 30 GM TUBE TP SCH ×2 (15:12→21:33)
[2022-09-04] MEDS: ATORVASTATIN CA 10 MG TABLET (FP) PO SCH (21:30)
[2022-09-04] MEDS: PRIMIDONE 50 MG TABLET PO SCH (21:30)
[2022-09-05] MEDS: PIPERACILLIN/TAZOB 3.375 GM 3.375 GM in DEXTROSE 5%-WATER - 50 ML IVPB SCH ×3 (02:21→17:57)
[2022-09-05] MEDS: LEVOTHYROXINE NA 25 MCG TABLET (FP) PO SCH (06:04)
[2022-09-05] MEDS: INSULIN SLIDING SCALE (NOVOLOG) 1 VIAL SQ SCH ×4 (06:04→22:01)
[2022-09-05] MEDS: AMINO ACIDS/PROTEIN HYDROLYS 30 ML LIQUID.PKT PO SCH ×2 (08:41→17:07)
[2022-09-05] MEDS: ZINC SULFATE 220 MG CAPSULE (FP) PO SCH (09:11)
[2022-09-05] MEDS: FERROUS SO4 325 MG TABLET (FP) PO SCH (09:11)
[2022-09-05] MEDS: ASCORBIC ACID 500 MG TABLET (FP) PO SCH ×2 (09:11→21:59)
[2022-09-05] MEDS: VALPROATE SODIUM 250 MG/5 ML UNIT DOSE CUP PO SCH ×2 (09:11→21:59)
[2022-09-05] MEDS: SPIRONOLACTONE 25 MG TABLET PO SCH (09:12)
[2022-09-05] MEDS: GABAPENTIN 100 MG CAPSULE PO SCH ×2 (09:12→21:59)
[2022-09-05] MEDS: MULTIVITAMINS (DAILY MVI) TABLET (FP) PO SCH (09:12)
[2022-09-05] MEDS: metoPROLOL SUCCINATE 25 MG TAB.SR.24H (FP) PO SCH (09:12)
[2022-09-05] MEDS: risperiDONE 1 MG TABLET PO SCH ×2 (09:13→22:00)
[2022-09-05] MEDS: BENZTROPINE MESYLATE PO SCH ×2 (09:14→22:00)
[2022-09-05 09:26] LABS: BASO % 0.4 % (0-2.0); EOS % 2.4 % (0-4.5); HEMOGLOBIN 8.3 GM/dL (10.7-15.3); LYMPH % 25.5 % (8-40); MCH 30.1 pg (25.7-33.7); MCHC 31.8 g/dl (32.0-36.0); MEAN CELL VOLUME 94.6 fl (80-96); MEAN PLT VOLUME 7.4 fl (7.5-11.1); MONO % 17.7 % (3.8-10.2); PLATELET COUNT 437 10^3/uL (134-434); RBC 2.75 M/mm3 (3.60-5.2); RDW 16.5 % (11.6-15.6); WHITE BLOOD COUNT 7.2 K/mm3 (4.0-10.0)
[2022-09-05] MEDS: VANCOMYCIN/WATER FOR INJ (PEG) 1,000 MG/200 ML BAG IVPB SCH (09:46)
[2022-09-05] MEDS: BENZOCAINE/MENTH/CETYLPYRD CL 1 EACH LOZENGE MM PRN (09:46)
[2022-09-05 09:47] LABS: CALCIUM 8.3 mg/dL (8.5-10.1)
[2022-09-05 09:48] LABS: BLOOD UREA NITROGEN 7.5 mg/dL (7-18)
[2022-09-05 09:52] LABS: CREATININE 0.3 mg/dL (0.55-1.3)
[2022-09-05] MEDS: COLLAGENASE CLOSTRIDIUM HIST. 30 GRAMS TUBE TP SCH (14:24)
[2022-09-05] MEDS: ZINC OXIDE 20% TOPICAL OINTMENT 30 GM TUBE TP SCH ×2 (14:24→22:01)
[2022-09-05] MEDS: ATORVASTATIN CA 10 MG TABLET (FP) PO SCH (21:59)
[2022-09-05] MEDS: PRIMIDONE 50 MG TABLET PO SCH (22:00)
[2022-09-06] MEDS: PIPERACILLIN/TAZOB 3.375 GM 3.375 GM in DEXTROSE 5%-WATER - 50 ML IVPB SCH ×3 (01:36→19:38)
[2022-09-06] MEDS: LEVOTHYROXINE NA 25 MCG TABLET (FP) PO SCH (05:59)
[2022-09-06] MEDS: INSULIN SLIDING SCALE (NOVOLOG) 1 VIAL SQ SCH ×4 (05:59→21:45)
[2022-09-06] MEDS: AMINO ACIDS/PROTEIN HYDROLYS 30 ML LIQUID.PKT PO SCH ×2 (09:31→18:42)
[2022-09-06 10:12] LABS: BASO % 0.6 % (0-2.0); EOS % 1.6 % (0-4.5); HEMATOCRIT 24.3 % (32.4-45.2); HEMOGLOBIN 7.6 GM/dL (10.7-15.3); LYMPH % 33.9 % (8-40); MCH 29.3 pg (25.7-33.7); MCHC 31.4 g/dl (32.0-36.0); MEAN CELL VOLUME 93.5 fl (80-96); MEAN PLT VOLUME 7.5 fl (7.5-11.1); MONO % 14.7 % (3.8-10.2); NEUT % 49.2 % (42.8-82.8); PLATELET COUNT 410 10^3/uL (134-434); RDW 16.1 % (11.6-15.6); WHITE BLOOD COUNT 6.8 K/mm3 (4.0-10.0)
[2022-09-06] MEDS: GABAPENTIN 100 MG CAPSULE PO SCH ×2 (10:15→21:42)
[2022-09-06] MEDS: SPIRONOLACTONE 25 MG TABLET PO SCH ×2 (10:15→10:29)
[2022-09-06] MEDS: metoPROLOL SUCCINATE 25 MG TAB.SR.24H (FP) PO SCH ×2 (10:15→10:30)
[2022-09-06] MEDS: ASCORBIC ACID 500 MG TABLET (FP) PO SCH ×2 (10:15→21:43)
[2022-09-06] MEDS: VALPROATE SODIUM 250 MG/5 ML UNIT DOSE CUP PO SCH ×2 (10:15→21:43)
[2022-09-06] MEDS: risperiDONE 1 MG TABLET PO SCH ×2 (10:15→21:44)
[2022-09-06] MEDS: MULTIVITAMINS (DAILY MVI) TABLET (FP) PO SCH (10:15)
[2022-09-06] MEDS: ZINC SULFATE 220 MG CAPSULE (FP) PO SCH (10:15)
[2022-09-06] MEDS: BENZTROPINE MESYLATE PO SCH ×2 (10:16→21:44)
[2022-09-06 10:38] LABS: BLOOD UREA NITROGEN 8.7 mg/dL (7-18)
[2022-09-06 10:41] LABS: CREATININE 0.3 mg/dL (0.55-1.3)
[2022-09-06] MEDS: ZINC OXIDE 20% TOPICAL OINTMENT 30 GM TUBE TP SCH ×2 (11:00→21:49)
[2022-09-06] MEDS: COLLAGENASE CLOSTRIDIUM HIST. 30 GRAMS TUBE TP SCH (11:00)
[2022-09-06] MEDS ORDERED: ONDANSETRON 4 MG/2 ML VIAL IVPUSH PRN ×4 (14:39→17:07)
[2022-09-06 14:42] VITALS: BMI 30.4
[2022-09-06] MEDS ORDERED: HEPARIN NA (PORCINE) 5,000 UNITS/ML 1ML VIAL ONE (15:26)
[2022-09-06] MEDS ORDERED: LIDOCAINE HCL 1%, 10 MG/ML (20ML VIAL) ONE (15:26)
[2022-09-06] MEDS ORDERED: FENTANYL CITRATE/PF 50 MCG/ML VIAL ONE (15:39)
[2022-09-06] MEDS ORDERED: MIDAZOLAM HCL 2 MG/2 ML SINGLE DOSE VIAL ONE (15:39)
[2022-09-06] MEDS ORDERED: LIDOCAINE HCL 1%, 10 MG/ML (50 mL VIAL) INF ONE (16:06)
[2022-09-06] MEDS ORDERED: LACTATED RINGERS SOLUTION 1,000 ML IV SCH (17:00)
[2022-09-06] MEDS ORDERED: BENZOCAINE/MENTH/CETYLPYRD CL 1 EACH LOZENGE MM PRN (17:07)
[2022-09-06] MEDS ORDERED: PIPERACILLIN/TAZOBACTAM 3.375 GM VIAL IVPB ONE (17:30)
[2022-09-06] MEDS: LACTATED RINGERS SOLUTION 1,000 ML IV SCH (18:42)
[2022-09-06] MEDS: ATORVASTATIN CA 10 MG TABLET (FP) PO SCH (21:43)
[2022-09-06] MEDS: PRIMIDONE 50 MG TABLET PO SCH (21:44)
[2022-09-07] MEDS: PIPERACILLIN/TAZOB 3.375 GM 3.375 GM in DEXTROSE 5%-WATER - 50 ML IVPB SCH ×3 (01:18→18:08)
[2022-09-07] MEDS: INSULIN SLIDING SCALE (NOVOLOG) 1 VIAL SQ SCH ×4 (06:05→21:54)
[2022-09-07] MEDS: LEVOTHYROXINE NA 25 MCG TABLET (FP) PO SCH (06:08)
[2022-09-07] MEDS: AMINO ACIDS/PROTEIN HYDROLYS 30 ML LIQUID.PKT PO SCH ×2 (08:57→18:07)
[2022-09-07] MEDS ORDERED: FUROSEMIDE 40 MG/4 ML INJECTABLE VIAL IVPUSH SCH (10:00)
[2022-09-07] MEDS: SPIRONOLACTONE 25 MG TABLET PO SCH (10:52)
[2022-09-07] MEDS: BENZTROPINE MESYLATE PO SCH ×2 (10:53→21:53)
[2022-09-07] MEDS: VALPROATE SODIUM 250 MG/5 ML UNIT DOSE CUP PO SCH ×2 (10:55→21:52)
[2022-09-07] MEDS: ZINC SULFATE 220 MG CAPSULE (FP) PO SCH (10:56)
[2022-09-07] MEDS: GABAPENTIN 100 MG CAPSULE PO SCH ×2 (10:56→21:52)
[2022-09-07] MEDS: risperiDONE 1 MG TABLET PO SCH ×2 (10:56→21:54)
[2022-09-07] MEDS: MULTIVITAMINS (DAILY MVI) TABLET (FP) PO SCH (10:56)
[2022-09-07] MEDS: metoPROLOL SUCCINATE 25 MG TAB.SR.24H (FP) PO SCH (10:57)
[2022-09-07] MEDS: ASCORBIC ACID 500 MG TABLET (FP) PO SCH ×2 (10:57→21:51)
[2022-09-07] MEDS ORDERED: IRON SUCROSE INJECTION 200 MG in SODIUM CHLORIDE 90 ML IVPB ONE (12:01)
[2022-09-07] MEDS: COLLAGENASE CLOSTRIDIUM HIST. 30 GRAMS TUBE TP SCH (15:45)
[2022-09-07] MEDS: ZINC OXIDE 20% TOPICAL OINTMENT 30 GM TUBE TP SCH ×2 (15:46→21:54)
[2022-09-07] MEDS: LACTATED RINGERS SOLUTION 1,000 ML IV SCH (19:00)
[2022-09-07] MEDS: PRIMIDONE 50 MG TABLET PO SCH (21:52)
[2022-09-07] MEDS: ATORVASTATIN CA 10 MG TABLET (FP) PO SCH (21:52)
[2022-09-08] MEDS: PIPERACILLIN/TAZOB 3.375 GM 3.375 GM in DEXTROSE 5%-WATER - 50 ML IVPB SCH ×3 (02:26→18:26)
[2022-09-08] MEDS: INSULIN SLIDING SCALE (NOVOLOG) 1 VIAL SQ SCH ×4 (06:03→22:33)
[2022-09-08] MEDS: LEVOTHYROXINE NA 25 MCG TABLET (FP) PO SCH (06:03)
[2022-09-08] MEDS: metoPROLOL SUCCINATE 25 MG TAB.SR.24H (FP) PO SCH (09:13)
[2022-09-08 09:39] LABS: BASO % 0.5 % (0-2.0); EOS % 2.8 % (0-4.5); HEMOGLOBIN 7.4 GM/dL (10.7-15.3); LYMPH % 29.1 % (8-40); MCH 29.5 pg (25.7-33.7); MCHC 32.1 g/dl (32.0-36.0); MEAN CELL VOLUME 91.9 fl (80-96); MEAN PLT VOLUME 7.1 fl (7.5-11.1); MONO % 15.2 % (3.8-10.2); NEUT % 52.4 % (42.8-82.8); PLATELET COUNT 304 10^3/uL (134-434); RDW 15.7 % (11.6-15.6); WHITE BLOOD COUNT 5.1 K/mm3 (4.0-10.0)
[2022-09-08 10:43] LABS: CALCIUM 7.9 mg/dL (8.5-10.1)
[2022-09-08 10:44] LABS: BLOOD UREA NITROGEN 5.3 mg/dL (7-18)
[2022-09-08 10:47] LABS: CREATININE 0.3 mg/dL (0.55-1.3)
[2022-09-08] MEDS: VALPROATE SODIUM 250 MG/5 ML UNIT DOSE CUP PO SCH ×2 (11:00→22:32)
[2022-09-08] MEDS: SPIRONOLACTONE 25 MG TABLET PO SCH (11:01)
[2022-09-08] MEDS: MULTIVITAMINS (DAILY MVI) TABLET (FP) PO SCH (11:03)
[2022-09-08] MEDS: BENZTROPINE MESYLATE PO SCH ×2 (11:03→22:33)
[2022-09-08] MEDS: AMINO ACIDS/PROTEIN HYDROLYS 30 ML LIQUID.PKT PO SCH ×2 (11:04→18:26)
[2022-09-08] MEDS: GABAPENTIN 100 MG CAPSULE PO SCH ×2 (11:04→22:33)
[2022-09-08] MEDS: ASCORBIC ACID 500 MG TABLET (FP) PO SCH ×2 (11:04→22:33)
[2022-09-08] MEDS: ZINC SULFATE 220 MG CAPSULE (FP) PO SCH (11:16)
[2022-09-08] MEDS: PANTOPRAZOLE 40 MG TABLET PO SCH (11:17)
[2022-09-08] MEDS: risperiDONE 1 MG TABLET PO SCH ×2 (11:19→22:33)
[2022-09-08] MEDS: POLYETHYLENE GLYCOL (HEALTHYLAX) 3350 17 GM PACKET PO SCH (11:24)
[2022-09-08] MEDS ORDERED: LACTATED RINGERS SOLUTION 1,000 ML/1,000 ML INFUS.BAG IV ONE (12:11)
[2022-09-08] MEDS: ZINC OXIDE 20% TOPICAL OINTMENT 30 GM TUBE TP SCH ×2 (13:03→22:34)
[2022-09-08] MEDS: COLLAGENASE CLOSTRIDIUM HIST. 30 GRAMS TUBE TP SCH (13:03)
[2022-09-08] MEDS: LACTATED RINGERS SOLUTION 1,000 ML IV SCH (18:27)
[2022-09-08] MEDS ORDERED: INSULIN (NOVOLOG MIX 70/30) 100 UNITS/ML MDV SQ ONE (19:23)
[2022-09-08] MEDS: ATORVASTATIN CA 10 MG TABLET (FP) PO SCH (22:32)
[2022-09-08] MEDS: PRIMIDONE 50 MG TABLET PO SCH (22:33)
[2022-09-09] MEDS: PIPERACILLIN/TAZOB 3.375 GM 3.375 GM in DEXTROSE 5%-WATER - 50 ML IVPB SCH ×3 (01:23→16:59)
[2022-09-09] MEDS: INSULIN SLIDING SCALE (NOVOLOG) 1 VIAL SQ SCH ×4 (06:02→21:26)
[2022-09-09] MEDS: LEVOTHYROXINE NA 25 MCG TABLET (FP) PO SCH (06:03)
[2022-09-09 09:30] LABS: BASO % 0.5 % (0-2.0); EOS % 2.5 % (0-4.5); HEMATOCRIT 24.6 % (32.4-45.2); HEMOGLOBIN 7.7 GM/dL (10.7-15.3); LYMPH % 28.5 % (8-40); MCH 28.7 pg (25.7-33.7); MCHC 31.3 g/dl (32.0-36.0); MEAN CELL VOLUME 91.7 fl (80-96); MEAN PLT VOLUME 7.7 fl (7.5-11.1); MONO % 15.4 % (3.8-10.2); NEUT % 53.1 % (42.8-82.8); PLATELET COUNT 303 10^3/uL (134-434); RBC 2.68 M/mm3 (3.60-5.2); RDW 16.3 % (11.6-15.6); WHITE BLOOD COUNT 5.3 K/mm3 (4.0-10.0)
[2022-09-09] MEDS ORDERED: ACETAMINOPHEN 1000 MG/100 ML BAG IVPB ONE (09:30)
[2022-09-09] MEDS: AMINO ACIDS/PROTEIN HYDROLYS 30 ML LIQUID.PKT PO SCH ×2 (09:42→16:58)
[2022-09-09] MEDS: ZINC SULFATE 220 MG CAPSULE (FP) PO SCH (09:46)
[2022-09-09] MEDS: metoPROLOL SUCCINATE 25 MG TAB.SR.24H (FP) PO SCH (09:46)
[2022-09-09] MEDS: PANTOPRAZOLE 40 MG TABLET PO SCH (09:46)
[2022-09-09] MEDS: SPIRONOLACTONE 25 MG TABLET PO SCH (09:46)
[2022-09-09] MEDS: POLYETHYLENE GLYCOL (HEALTHYLAX) 3350 17 GM PACKET PO SCH (09:46)
[2022-09-09] MEDS: MULTIVITAMINS (DAILY MVI) TABLET (FP) PO SCH (09:46)
[2022-09-09] MEDS: GABAPENTIN 100 MG CAPSULE PO SCH ×2 (09:46→21:15)
[2022-09-09] MEDS: VALPROATE SODIUM 250 MG/5 ML UNIT DOSE CUP PO SCH ×2 (09:46→21:15)
[2022-09-09] MEDS: ASCORBIC ACID 500 MG TABLET (FP) PO SCH ×2 (09:46→21:15)
[2022-09-09] MEDS: BENZTROPINE MESYLATE PO SCH ×2 (09:47→23:20)
[2022-09-09] MEDS: risperiDONE 1 MG TABLET PO SCH ×3 (09:48→21:25)
[2022-09-09] MEDS: COLLAGENASE CLOSTRIDIUM HIST. 30 GRAMS TUBE TP SCH (09:49)
[2022-09-09] MEDS: ZINC OXIDE 20% TOPICAL OINTMENT 30 GM TUBE TP SCH ×2 (09:57→21:26)
[2022-09-09 10:04] LABS: CALCIUM 8.1 mg/dL (8.5-10.1)
[2022-09-09 10:05] LABS: BLOOD UREA NITROGEN 4.6 mg/dL (7-18)
[2022-09-09 10:08] LABS: CREATININE 0.3 mg/dL (0.55-1.3)
[2022-09-09] MEDS ORDERED: ACETAMINOPHEN 1000 MG/100 ML BAG IVPB PRN (13:02)
[2022-09-09 17:08] LABS: FREE KAPPA,SERUM 49.2 mg/L (3.3-19.4)
[2022-09-09] MEDS: ATORVASTATIN CA 10 MG TABLET (FP) PO SCH (21:15)
[2022-09-09] MEDS: PRIMIDONE 50 MG TABLET PO SCH (21:17)
[2022-09-10] MEDS: PIPERACILLIN/TAZOB 3.375 GM 3.375 GM in DEXTROSE 5%-WATER - 50 ML IVPB SCH ×3 (02:21→17:34)
[2022-09-10] MEDS: INSULIN SLIDING SCALE (NOVOLOG) 1 VIAL SQ SCH ×4 (06:21→23:32)
[2022-09-10] MEDS: LEVOTHYROXINE NA 25 MCG TABLET (FP) PO SCH (06:21)
[2022-09-10] MEDS: AMINO ACIDS/PROTEIN HYDROLYS 30 ML LIQUID.PKT PO SCH ×2 (09:10→18:39)
[2022-09-10] MEDS: POLYETHYLENE GLYCOL (HEALTHYLAX) 3350 17 GM PACKET PO SCH ×2 (09:12→09:37)
[2022-09-10] MEDS: MULTIVITAMINS (DAILY MVI) TABLET (FP) PO SCH (09:13)
[2022-09-10] MEDS: SPIRONOLACTONE 25 MG TABLET PO SCH (09:14)
[2022-09-10] MEDS: VALPROATE SODIUM 250 MG/5 ML UNIT DOSE CUP PO SCH ×2 (09:14→23:31)
[2022-09-10] MEDS: ZINC SULFATE 220 MG CAPSULE (FP) PO SCH (09:14)
[2022-09-10] MEDS: GABAPENTIN 100 MG CAPSULE PO SCH ×2 (09:14→23:30)
[2022-09-10] MEDS: metoPROLOL SUCCINATE 25 MG TAB.SR.24H (FP) PO SCH (09:15)
[2022-09-10] MEDS: ASCORBIC ACID 500 MG TABLET (FP) PO SCH ×2 (09:15→23:30)
[2022-09-10] MEDS: BENZTROPINE MESYLATE PO SCH (09:15)
[2022-09-10] MEDS: PANTOPRAZOLE 40 MG TABLET PO SCH (09:15)
[2022-09-10] MEDS: risperiDONE 1 MG TABLET PO SCH ×2 (09:16→23:32)
[2022-09-10] MEDS: COLLAGENASE CLOSTRIDIUM HIST. 30 GRAMS TUBE TP SCH (10:07)
[2022-09-10] MEDS: ZINC OXIDE 20% TOPICAL OINTMENT 30 GM TUBE TP SCH ×2 (10:07→23:35)
[2022-09-10 10:33] LABS: BASO % 1.2 % (0-2.0); EOS % 3.8 % (0-4.5); HEMATOCRIT 25.8 % (32.4-45.2); HEMOGLOBIN 8.1 GM/dL (10.7-15.3); LYMPH % 19.3 % (8-40); MCHC 31.2 g/dl (32.0-36.0); MEAN CELL VOLUME 92.9 fl (80-96); MONO % 9.3 % (3.8-10.2); NEUT % 66.4 % (42.8-82.8); PLATELET COUNT 257 10^3/uL (134-434); RBC 2.78 M/mm3 (3.60-5.2); RDW 15.9 % (11.6-15.6); WHITE BLOOD COUNT 4.9 K/mm3 (4.0-10.0)
[2022-09-10 12:03] LABS: BLOOD UREA NITROGEN 5.9 mg/dL (7-18)
[2022-09-10 12:06] LABS: CREATININE 0.3 mg/dL (0.55-1.3)
[2022-09-10] MEDS: VANCOMYCIN/WATER FOR INJ (PEG) 1,000 MG/200 ML BAG IVPB SCH (15:34)
[2022-09-10] MEDS: ATORVASTATIN CA 10 MG TABLET (FP) PO SCH (23:30)
[2022-09-10] MEDS: PRIMIDONE 50 MG TABLET PO SCH (23:31)
[2022-09-11] MEDS: PIPERACILLIN/TAZOB 3.375 GM 3.375 GM in DEXTROSE 5%-WATER - 50 ML IVPB SCH ×3 (02:07→18:36)
[2022-09-11] MEDS: BENZTROPINE MESYLATE PO SCH ×3 (02:08→22:59)
[2022-09-11] MEDS: VANCOMYCIN/WATER FOR INJ (PEG) 1,000 MG/200 ML BAG IVPB SCH ×2 (03:52→15:51)
[2022-09-11] MEDS: LEVOTHYROXINE NA 25 MCG TABLET (FP) PO SCH (06:44)
[2022-09-11] MEDS: INSULIN SLIDING SCALE (NOVOLOG) 1 VIAL SQ SCH ×4 (06:44→23:02)
[2022-09-11] MEDS: ZINC SULFATE 220 MG CAPSULE (FP) PO SCH (10:37)
[2022-09-11] MEDS: GABAPENTIN 100 MG CAPSULE PO SCH ×2 (10:37→23:02)
[2022-09-11] MEDS: ASCORBIC ACID 500 MG TABLET (FP) PO SCH ×2 (10:37→23:02)
[2022-09-11] MEDS: VALPROATE SODIUM 250 MG/5 ML UNIT DOSE CUP PO SCH ×2 (10:37→23:00)
[2022-09-11] MEDS: AMINO ACIDS/PROTEIN HYDROLYS 30 ML LIQUID.PKT PO SCH ×2 (10:37→17:26)
[2022-09-11] MEDS: PANTOPRAZOLE 40 MG TABLET PO SCH (10:37)
[2022-09-11] MEDS: MULTIVITAMINS (DAILY MVI) TABLET (FP) PO SCH (10:37)
[2022-09-11] MEDS: risperiDONE 1 MG TABLET PO SCH ×2 (10:37→23:02)
[2022-09-11] MEDS: SPIRONOLACTONE 25 MG TABLET PO SCH (10:37)
[2022-09-11] MEDS: metoPROLOL SUCCINATE 25 MG TAB.SR.24H (FP) PO SCH (10:37)
[2022-09-11] MEDS: ZINC OXIDE 20% TOPICAL OINTMENT 30 GM TUBE TP SCH ×2 (10:38→23:02)
[2022-09-11] MEDS: COLLAGENASE CLOSTRIDIUM HIST. 30 GRAMS TUBE TP SCH (10:38)
[2022-09-11] MEDS: POLYETHYLENE GLYCOL (HEALTHYLAX) 3350 17 GM PACKET PO SCH (10:38)
[2022-09-11 10:50] LABS: BASO % 0.9 % (0-2.0); EOS % 4.3 % (0-4.5); HEMATOCRIT 24.6 % (32.4-45.2); HEMOGLOBIN 7.7 GM/dL (10.7-15.3); LYMPH % 26.9 % (8-40); MCH 29.1 pg (25.7-33.7); MCHC 31.4 g/dl (32.0-36.0); MEAN CELL VOLUME 92.8 fl (80-96); MONO % 11.2 % (3.8-10.2); NEUT % 56.7 % (42.8-82.8); PLATELET COUNT 233 10^3/uL (134-434); RBC 2.65 M/mm3 (3.60-5.2); RDW 16.6 % (11.6-15.6)
[2022-09-11 10:59] LABS: CALCIUM 7.9 mg/dL (8.5-10.1)
[2022-09-11 11:00] LABS: BLOOD UREA NITROGEN 5.3 mg/dL (7-18)
[2022-09-11 11:03] LABS: CREATININE 0.4 mg/dL (0.55-1.3)
[2022-09-11 12:09] LABS: HIV INTERPRETATION NEGATIVE (NEGATIVE)
[2022-09-11] MEDS: ACETAMINOPHEN 325 MG TABLET (FP) PO PRN (16:15)
[2022-09-11] MEDS ORDERED: LACTATED RINGERS SOLUTION 1,000 ML/1,000 ML INFUS.BAG IV ONE (17:24)
[2022-09-11] MEDS: HEPARIN NA (PORCINE) 5,000 UNITS/ML 1ML VIAL SQ SCH (23:00)
[2022-09-11] MEDS: ATORVASTATIN CA 10 MG TABLET (FP) PO SCH (23:00)
[2022-09-11] MEDS: PRIMIDONE 50 MG TABLET PO SCH (23:01)
[2022-09-12] MEDS: PIPERACILLIN/TAZOB 3.375 GM 3.375 GM in DEXTROSE 5%-WATER - 50 ML IVPB SCH ×3 (02:00→17:17)
[2022-09-12] MEDS: VANCOMYCIN/WATER FOR INJ (PEG) 1,000 MG/200 ML BAG IVPB SCH ×2 (03:50→15:10)
[2022-09-12] MEDS: INSULIN SLIDING SCALE (NOVOLOG) 1 VIAL SQ SCH ×4 (06:25→21:05)
[2022-09-12] MEDS: LEVOTHYROXINE NA 25 MCG TABLET (FP) PO SCH (06:26)
[2022-09-12] MEDS: HEPARIN NA (PORCINE) 5,000 UNITS/ML 1ML VIAL SQ SCH ×3 (06:26→21:02)
[2022-09-12] MEDS: ACETAMINOPHEN 325 MG TABLET (FP) PO PRN ×2 (06:41→14:38)
[2022-09-12] MEDS: GABAPENTIN 100 MG CAPSULE PO SCH ×2 (10:29→21:02)
[2022-09-12] MEDS: ASCORBIC ACID 500 MG TABLET (FP) PO SCH ×2 (10:29→21:02)
[2022-09-12] MEDS: ZINC SULFATE 220 MG CAPSULE (FP) PO SCH (10:29)
[2022-09-12] MEDS: VALPROATE SODIUM 250 MG/5 ML UNIT DOSE CUP PO SCH ×2 (10:29→21:02)
[2022-09-12] MEDS: PANTOPRAZOLE 40 MG TABLET PO SCH (10:29)
[2022-09-12] MEDS: MULTIVITAMINS (DAILY MVI) TABLET (FP) PO SCH (10:29)
[2022-09-12] MEDS: BENZTROPINE MESYLATE PO SCH ×2 (10:31→21:04)
[2022-09-12] MEDS: AMINO ACIDS/PROTEIN HYDROLYS 30 ML LIQUID.PKT PO SCH ×2 (10:36→17:52)
[2022-09-12] MEDS: POLYETHYLENE GLYCOL (HEALTHYLAX) 3350 17 GM PACKET PO SCH (10:37)
[2022-09-12] MEDS: metoPROLOL SUCCINATE 25 MG TAB.SR.24H (FP) PO SCH (10:37)
[2022-09-12] MEDS: SPIRONOLACTONE 25 MG TABLET PO SCH (10:37)
[2022-09-12] MEDS: risperiDONE 1 MG TABLET PO SCH ×2 (10:39→21:04)
[2022-09-12] MEDS: COLLAGENASE CLOSTRIDIUM HIST. 30 GRAMS TUBE TP SCH (10:40)
[2022-09-12] MEDS: ZINC OXIDE 20% TOPICAL OINTMENT 30 GM TUBE TP SCH ×2 (10:42→21:05)
[2022-09-12 12:04] LABS: BASO % 0.7 % (0-2.0); EOS % 1.6 % (0-4.5); HEMATOCRIT 25.9 % (32.4-45.2); LYMPH % 33.9 % (8-40); MCH 28.4 pg (25.7-33.7); MCHC 30.8 g/dl (32.0-36.0); MEAN CELL VOLUME 92.4 fl (80-96); MEAN PLT VOLUME 8.4 fl (7.5-11.1); MONO % 6.6 % (3.8-10.2); NEUT % 57.2 % (42.8-82.8); PLATELET COUNT 218 10^3/uL (134-434); RDW 16.3 % (11.6-15.6)
[2022-09-12 12:14] LABS: INR 1.22 (0.83-1.09); PROTHROMBIN TIME (PATIENT) 14.1 SEC (9.7-13.0)
[2022-09-12 12:17] LABS: ACTIVATED PTT 36.5 SECONDS (25.2-36.5)
[2022-09-12 12:35] LABS: ALBUMIN 1.8 g/dl (3.4-5.0); BLOOD UREA NITROGEN 6.8 mg/dL (7-18); CALCIUM 7.8 mg/dL (8.5-10.1)
[2022-09-12 12:39] LABS: BILIRUBIN,TOTAL 0.3 mg/dL (0.2-1); CREATININE 0.4 mg/dL (0.55-1.3)
[2022-09-12 12:40] LABS: TOT PROT 5.4 g/dl (6.4-8.2)
[2022-09-12 20:03] LABS: PH,URINE 5.5 (5.0-8.0); URINE APPEARANCE CLEAR; URINE BILIRUBIN NEGATIVE (NEGATIVE); URINE COLOR YELLOW; URINE GLUCOSE (UA) NEGATIVE (NEGATIVE); URINE KETONE NEGATIVE (NEGATIVE); URINE LEUK ESTERASE NEGATIVE (NEGATIVE); URINE NITRITE NEGATIVE (NEGATIVE); URINE PROTEIN NEGATIVE (NEGATIVE)
[2022-09-12] MEDS: ATORVASTATIN CA 10 MG TABLET (FP) PO SCH (21:03)
[2022-09-12] MEDS: PRIMIDONE 50 MG TABLET PO SCH (21:04)
[2022-09-13] MEDS: PIPERACILLIN/TAZOB 3.375 GM 3.375 GM in DEXTROSE 5%-WATER - 50 ML IVPB SCH ×3 (01:33→19:21)
[2022-09-13] MEDS: VANCOMYCIN/WATER FOR INJ (PEG) 1,000 MG/200 ML BAG IVPB SCH ×2 (02:46→18:16)
[2022-09-13] MEDS: HEPARIN NA (PORCINE) 5,000 UNITS/ML 1ML VIAL SQ SCH ×3 (06:00→22:35)
[2022-09-13] MEDS: INSULIN SLIDING SCALE (NOVOLOG) 1 VIAL SQ SCH ×4 (06:00→22:36)
[2022-09-13] MEDS: LEVOTHYROXINE NA 25 MCG TABLET (FP) PO SCH (06:01)
[2022-09-13] MEDS: ACETAMINOPHEN 325 MG TABLET (FP) PO PRN (06:01)
[2022-09-13] MEDS: AMINO ACIDS/PROTEIN HYDROLYS 30 ML LIQUID.PKT PO SCH ×2 (08:15→19:21)
[2022-09-13] MEDS: VALPROATE SODIUM 250 MG/5 ML UNIT DOSE CUP PO SCH ×2 (10:26→22:35)
[2022-09-13] MEDS: PANTOPRAZOLE 40 MG TABLET PO SCH (10:27)
[2022-09-13] MEDS: BENZTROPINE MESYLATE PO SCH ×2 (10:27→22:34)
[2022-09-13] MEDS: ZINC SULFATE 220 MG CAPSULE (FP) PO SCH (10:27)
[2022-09-13] MEDS: MULTIVITAMINS (DAILY MVI) TABLET (FP) PO SCH (10:27)
[2022-09-13] MEDS: COLLAGENASE CLOSTRIDIUM HIST. 30 GRAMS TUBE TP SCH (10:27)
[2022-09-13] MEDS: ASCORBIC ACID 500 MG TABLET (FP) PO SCH ×2 (10:28→22:34)
[2022-09-13] MEDS: ZINC OXIDE 20% TOPICAL OINTMENT 30 GM TUBE TP SCH ×2 (10:28→22:41)
[2022-09-13] MEDS: metoPROLOL SUCCINATE 25 MG TAB.SR.24H (FP) PO SCH (10:28)
[2022-09-13] MEDS: SPIRONOLACTONE 25 MG TABLET PO SCH (10:29)
[2022-09-13] MEDS: GABAPENTIN 100 MG CAPSULE PO SCH ×2 (10:29→22:34)
[2022-09-13] MEDS: POLYETHYLENE GLYCOL (HEALTHYLAX) 3350 17 GM PACKET PO SCH (10:29)
[2022-09-13] MEDS: risperiDONE 1 MG TABLET PO SCH ×2 (10:30→22:34)
[2022-09-13 10:58] LABS: BASO % 0.4 % (0-2.0); EOS % 0.5 % (0-4.5); HEMOGLOBIN 7.4 GM/dL (10.7-15.3); LYMPH % 53.7 % (8-40); MCH 29.2 pg (25.7-33.7); MCHC 32.1 g/dl (32.0-36.0); MEAN CELL VOLUME 91.3 fl (80-96); MEAN PLT VOLUME 8.5 fl (7.5-11.1); MONO % 7.1 % (3.8-10.2); NEUT % 38.3 % (42.8-82.8); PLATELET COUNT 181 10^3/uL (134-434); RBC 2.52 M/mm3 (3.60-5.2); RDW 16.2 % (11.6-15.6); WHITE BLOOD COUNT 2.6 K/mm3 (4.0-10.0)
[2022-09-13 11:09] LABS: CALCIUM 7.3 mg/dL (8.5-10.1)
[2022-09-13 11:10] LABS: ALBUMIN 1.5 g/dl (3.4-5.0); BLOOD UREA NITROGEN 5.9 mg/dL (7-18)
[2022-09-13 11:13] LABS: CREATININE 0.3 mg/dL (0.55-1.3)
[2022-09-13 11:14] LABS: TOT PROT 4.6 g/dl (6.4-8.2)
[2022-09-13 11:15] LABS: BILIRUBIN,TOTAL 0.2 mg/dL (0.2-1)
[2022-09-13] MEDS: KCL 10 MEQ IVPB 10 MEQ/100 ML INFUS.BAG IVPB SCH ×3 (14:17→17:21)
[2022-09-13 14:38] LABS: MAGNESIUM 2.2 mg/dL (1.8-2.4)
[2022-09-13 14:43] LABS: PHOSPHOROUS 3.3 mg/dL (2.5-4.9)
[2022-09-13] MEDS: PRIMIDONE 50 MG TABLET PO SCH (22:35)
[2022-09-13] MEDS: ATORVASTATIN CA 10 MG TABLET (FP) PO SCH (22:36)
[2022-09-13] MEDS: SENNOSIDES/DOCUSATE COMBO (SENNA PLUS) TABLET (UD) PO SCH (22:41)
[2022-09-14] MEDS: PIPERACILLIN/TAZOB 3.375 GM 3.375 GM in DEXTROSE 5%-WATER - 50 ML IVPB SCH ×3 (02:07→17:50)
[2022-09-14] MEDS: VANCOMYCIN/WATER FOR INJ (PEG) 1,000 MG/200 ML BAG IVPB SCH ×2 (04:58→15:06)
[2022-09-14] MEDS: INSULIN SLIDING SCALE (NOVOLOG) 1 VIAL SQ SCH ×2 (06:13→12:14)
[2022-09-14] MEDS: HEPARIN NA (PORCINE) 5,000 UNITS/ML 1ML VIAL SQ SCH ×3 (06:19→21:11)
[2022-09-14] MEDS: LEVOTHYROXINE NA 25 MCG TABLET (FP) PO SCH (06:20)
[2022-09-14 07:54] LABS: BASO % 0.9 % (0-2.0); EOS % 0.7 % (0-4.5); HEMOGLOBIN 7.6 GM/dL (10.7-15.3); LYMPH % 53.4 % (8-40); MCH 29.1 pg (25.7-33.7); MCHC 31.7 g/dl (32.0-36.0); MEAN CELL VOLUME 91.6 fl (80-96); MEAN PLT VOLUME 8.4 fl (7.5-11.1); PLATELET COUNT 184 10^3/uL (134-434); RBC 2.62 M/mm3 (3.60-5.2); RDW 16.4 % (11.6-15.6); WHITE BLOOD COUNT 2.7 K/mm3 (4.0-10.0)
[2022-09-14 08:15] LABS: CALCIUM 7.6 mg/dL (8.5-10.1)
[2022-09-14 08:16] LABS: ALBUMIN 1.6 g/dl (3.4-5.0); BLOOD UREA NITROGEN 5.9 mg/dL (7-18)
[2022-09-14 08:19] LABS: CREATININE 0.3 mg/dL (0.55-1.3)
[2022-09-14 08:21] LABS: BILIRUBIN,TOTAL 0.4 mg/dL (0.2-1); TOT PROT 4.8 g/dl (6.4-8.2)
[2022-09-14] MEDS: SPIRONOLACTONE 25 MG TABLET PO SCH (10:48)
[2022-09-14] MEDS: AMINO ACIDS/PROTEIN HYDROLYS 30 ML LIQUID.PKT PO SCH ×2 (10:48→16:29)
[2022-09-14] MEDS: GABAPENTIN 100 MG CAPSULE PO SCH ×2 (10:49→21:12)
[2022-09-14] MEDS: MULTIVITAMINS (DAILY MVI) TABLET (FP) PO SCH (10:49)
[2022-09-14] MEDS: ASCORBIC ACID 500 MG TABLET (FP) PO SCH ×2 (10:49→21:13)
[2022-09-14] MEDS: VALPROATE SODIUM 250 MG/5 ML UNIT DOSE CUP PO SCH ×2 (10:49→21:11)
[2022-09-14] MEDS: ZINC SULFATE 220 MG CAPSULE (FP) PO SCH (10:49)
[2022-09-14] MEDS: PANTOPRAZOLE 40 MG TABLET PO SCH (10:50)
[2022-09-14] MEDS: risperiDONE 1 MG TABLET PO SCH ×2 (10:50→21:13)
[2022-09-14] MEDS: BENZTROPINE MESYLATE PO SCH ×2 (10:51→21:13)
[2022-09-14] MEDS: metoPROLOL SUCCINATE 25 MG TAB.SR.24H (FP) PO SCH (10:51)
[2022-09-14] MEDS: COLLAGENASE CLOSTRIDIUM HIST. 30 GRAMS TUBE TP SCH (10:51)
[2022-09-14] MEDS: SENNOSIDES/DOCUSATE COMBO (SENNA PLUS) TABLET (UD) PO SCH ×2 (10:51→21:12)
[2022-09-14] MEDS: ZINC OXIDE 20% TOPICAL OINTMENT 30 GM TUBE TP SCH ×2 (10:51→21:14)
[2022-09-14] MEDS: PRIMIDONE 50 MG TABLET PO SCH (21:11)
[2022-09-14] MEDS: ATORVASTATIN CA 10 MG TABLET (FP) PO SCH (21:12)
[2022-09-14] MEDS: ACETAMINOPHEN 325 MG TABLET (FP) PO PRN (23:04)
[2022-09-15] MEDS: PIPERACILLIN/TAZOB 3.375 GM 3.375 GM in DEXTROSE 5%-WATER - 50 ML IVPB SCH ×3 (01:50→17:20)
[2022-09-15] MEDS: VANCOMYCIN/WATER FOR INJ (PEG) 1,000 MG/200 ML BAG IVPB SCH ×2 (03:29→14:59)
[2022-09-15] MEDS: HEPARIN NA (PORCINE) 5,000 UNITS/ML 1ML VIAL SQ SCH ×3 (06:05→21:41)
[2022-09-15] MEDS: LEVOTHYROXINE NA 25 MCG TABLET (FP) PO SCH (06:30)
[2022-09-15] MEDS ORDERED: LACTATED RINGERS SOLUTION 1,000 ML/1,000 ML INFUS.BAG IV SCH (08:15)
[2022-09-15] MEDS: AMINO ACIDS/PROTEIN HYDROLYS 30 ML LIQUID.PKT PO SCH ×3 (09:36→17:20)
[2022-09-15] MEDS: VALPROATE SODIUM 250 MG/5 ML UNIT DOSE CUP PO SCH ×2 (09:36→21:40)
[2022-09-15] MEDS: PANTOPRAZOLE 40 MG TABLET PO SCH (09:36)
[2022-09-15] MEDS: ASCORBIC ACID 500 MG TABLET (FP) PO SCH ×2 (09:36→21:41)
[2022-09-15] MEDS: ZINC SULFATE 220 MG CAPSULE (FP) PO SCH (09:36)
[2022-09-15] MEDS: GABAPENTIN 100 MG CAPSULE PO SCH ×2 (09:36→21:41)
[2022-09-15] MEDS: MULTIVITAMINS (DAILY MVI) TABLET (FP) PO SCH (09:36)
[2022-09-15] MEDS: metoPROLOL SUCCINATE 25 MG TAB.SR.24H (FP) PO SCH ×2 (09:36→10:36)
[2022-09-15] MEDS: SPIRONOLACTONE 25 MG TABLET PO SCH (09:37)
[2022-09-15] MEDS: BENZTROPINE MESYLATE PO SCH ×2 (09:37→22:23)
[2022-09-15] MEDS: risperiDONE 1 MG TABLET PO SCH ×2 (09:38→21:41)
[2022-09-15] MEDS: SENNOSIDES/DOCUSATE COMBO (SENNA PLUS) TABLET (UD) PO SCH ×2 (09:39→21:41)
[2022-09-15 09:56] LABS: BASO % 0.8 % (0-2.0); EOS % 2.5 % (0-4.5); HEMATOCRIT 23.2 % (32.4-45.2); HEMOGLOBIN 7.3 GM/dL (10.7-15.3); LYMPH % 53.7 % (8-40); MCH 28.9 pg (25.7-33.7); MCHC 31.6 g/dl (32.0-36.0); MEAN CELL VOLUME 91.4 fl (80-96); MEAN PLT VOLUME 8.6 fl (7.5-11.1); MONO % 7.5 % (3.8-10.2); NEUT % 35.5 % (42.8-82.8); PLATELET COUNT 192 10^3/uL (134-434); RBC 2.54 M/mm3 (3.60-5.2); RDW 16.4 % (11.6-15.6)
[2022-09-15 10:24] LABS: CALCIUM 7.6 mg/dL (8.5-10.1)
[2022-09-15 10:25] LABS: ALBUMIN 1.6 g/dl (3.4-5.0)
[2022-09-15 10:28] LABS: CREATININE 0.3 mg/dL (0.55-1.3)
[2022-09-15 10:30] LABS: BILIRUBIN,TOTAL 0.5 mg/dL (0.2-1); TOT PROT 4.7 g/dl (6.4-8.2)
[2022-09-15] MEDS: COLLAGENASE CLOSTRIDIUM HIST. 30 GRAMS TUBE TP SCH (14:54)
[2022-09-15] MEDS: ZINC OXIDE 20% TOPICAL OINTMENT 30 GM TUBE TP SCH ×2 (14:54→21:48)
[2022-09-15] MEDS: ATORVASTATIN CA 10 MG TABLET (FP) PO SCH (21:42)
[2022-09-15] MEDS: PRIMIDONE 50 MG TABLET PO SCH (22:23)
[2022-09-16] MEDS: PIPERACILLIN/TAZOB 3.375 GM 3.375 GM in DEXTROSE 5%-WATER - 50 ML IVPB SCH ×3 (01:43→17:57)
[2022-09-16] MEDS: VANCOMYCIN/WATER FOR INJ (PEG) 1,000 MG/200 ML BAG IVPB SCH ×2 (03:47→18:47)
[2022-09-16] MEDS: HEPARIN NA (PORCINE) 5,000 UNITS/ML 1ML VIAL SQ SCH ×3 (06:03→23:57)
[2022-09-16] MEDS: LEVOTHYROXINE NA 25 MCG TABLET (FP) PO SCH (06:03)
[2022-09-16 10:08] LABS: BASO % 0.5 % (0-2.0); EOS % 2.9 % (0-4.5); HEMATOCRIT 23.6 % (32.4-45.2); HEMOGLOBIN 7.3 GM/dL (10.7-15.3); LYMPH % 45.2 % (8-40); MCH 28.6 pg (25.7-33.7); MCHC 31.1 g/dl (32.0-36.0); MEAN PLT VOLUME 8.8 fl (7.5-11.1); MONO % 8.1 % (3.8-10.2); NEUT % 43.3 % (42.8-82.8); PLATELET COUNT 187 10^3/uL (134-434); RBC 2.56 M/mm3 (3.60-5.2); RDW 16.6 % (11.6-15.6); WHITE BLOOD COUNT 3.8 K/mm3 (4.0-10.0)
[2022-09-16 10:28] LABS: CHLORIDE 112 mmol/L (98-107); SODIUM 147 mmol/L (136-145)
[2022-09-16] MEDS ORDERED: POTASSIUM CHLORIDE TABS 20 MEQ TABLET.ER (FP) PO ONE (10:33)
[2022-09-16 10:38] LABS: CALCIUM 7.8 mg/dL (8.5-10.1)
[2022-09-16 10:40] LABS: ALBUMIN 1.5 g/dl (3.4-5.0); ANION GAP 6 MMOL/L (8-16); CO2 29 mmol/L (21-32); GLUCOSE,RANDOM 83 mg/dL (74-106)
[2022-09-16 10:42] LABS: CREATININE 0.2 mg/dL (0.55-1.3); SGOT/AST 48 U/L (15-37); SGPT/ALT 21 U/L (13-61)
[2022-09-16 10:43] LABS: BILIRUBIN,TOTAL 0.3 mg/dL (0.2-1)
[2022-09-16 10:45] LABS: ALK PHOS 93 U/L (45-117); TOT PROT 4.5 g/dl (6.4-8.2)
[2022-09-16] MEDS ORDERED: SODIUM CHLORIDE 1,000 ML IV SCH (10:45)
[2022-09-16] MEDS ORDERED: DEXTROSE 5%-0.45% SALINE 1,000 ML IV SCH (10:45)
[2022-09-16 10:47] LABS: BLOOD UREA NITROGEN 2.2 mg/dL (7-18)
[2022-09-16] MEDS: VALPROATE SODIUM 250 MG/5 ML UNIT DOSE CUP PO SCH ×2 (10:53→23:56)
[2022-09-16] MEDS: AMINO ACIDS/PROTEIN HYDROLYS 30 ML LIQUID.PKT PO SCH ×2 (10:54→17:57)
[2022-09-16] MEDS: BENZTROPINE MESYLATE PO SCH ×2 (10:54→23:59)
[2022-09-16] MEDS: ZINC SULFATE 220 MG CAPSULE (FP) PO SCH (10:55)
[2022-09-16] MEDS: PANTOPRAZOLE 40 MG TABLET PO SCH (10:55)
[2022-09-16] MEDS: GABAPENTIN 100 MG CAPSULE PO SCH ×2 (10:55→23:56)
[2022-09-16] MEDS: risperiDONE 1 MG TABLET PO SCH (10:55)
[2022-09-16] MEDS: MULTIVITAMINS (DAILY MVI) TABLET (FP) PO SCH (10:55)
[2022-09-16] MEDS: SPIRONOLACTONE 25 MG TABLET PO SCH (10:57)
[2022-09-16] MEDS: SENNOSIDES/DOCUSATE COMBO (SENNA PLUS) TABLET (UD) PO SCH ×2 (10:57→23:58)
[2022-09-16] MEDS: metoPROLOL SUCCINATE 25 MG TAB.SR.24H (FP) PO SCH (10:58)
[2022-09-16] MEDS: ASCORBIC ACID 500 MG TABLET (FP) PO SCH ×2 (11:04→23:57)
[2022-09-16] MEDS: ZINC OXIDE 20% TOPICAL OINTMENT 30 GM TUBE TP SCH ×2 (13:29→23:58)
[2022-09-16] MEDS: COLLAGENASE CLOSTRIDIUM HIST. 30 GRAMS TUBE TP SCH (13:30)
[2022-09-16] MEDS: PRIMIDONE 50 MG TABLET PO SCH (23:45)
[2022-09-16] MEDS: ATORVASTATIN CA 10 MG TABLET (FP) PO SCH (23:57)
[2022-09-17] MEDS: PIPERACILLIN/TAZOB 3.375 GM 3.375 GM in DEXTROSE 5%-WATER - 50 ML IVPB SCH ×3 (01:19→22:13)
[2022-09-17] MEDS: HEPARIN NA (PORCINE) 5,000 UNITS/ML 1ML VIAL SQ SCH ×3 (06:01→22:14)
[2022-09-17] MEDS: LEVOTHYROXINE NA 25 MCG TABLET (FP) PO SCH (06:02)
[2022-09-17] MEDS: AMINO ACIDS/PROTEIN HYDROLYS 30 ML LIQUID.PKT PO SCH ×2 (08:36→17:59)
[2022-09-17 10:14] LABS: BASO % 0.7 % (0-2.0); EOS % 3.1 % (0-4.5); HEMATOCRIT 22.3 % (32.4-45.2); LYMPH % 41.2 % (8-40); MCH 28.5 pg (25.7-33.7); MCHC 30.7 g/dl (32.0-36.0); MEAN CELL VOLUME 92.6 fl (80-96); MEAN PLT VOLUME 8.9 fl (7.5-11.1); MONO % 10.4 % (3.8-10.2); NEUT % 44.6 % (42.8-82.8); PLATELET COUNT 214 10^3/uL (134-434); RBC 2.41 M/mm3 (3.60-5.2); RDW 16.6 % (11.6-15.6); WHITE BLOOD COUNT 3.2 K/mm3 (4.0-10.0)
[2022-09-17 10:17] LABS: HEMOGLOBIN 6.9 GM/dL (10.7-15.3)
[2022-09-17] MEDS: ASCORBIC ACID 500 MG TABLET (FP) PO SCH ×2 (10:31→22:14)
[2022-09-17] MEDS: VALPROATE SODIUM 250 MG/5 ML UNIT DOSE CUP PO SCH ×2 (10:31→22:14)
[2022-09-17] MEDS: GABAPENTIN 100 MG CAPSULE PO SCH ×2 (10:31→22:14)
[2022-09-17] MEDS: MULTIVITAMINS (DAILY MVI) TABLET (FP) PO SCH (10:31)
[2022-09-17] MEDS: ZINC SULFATE 220 MG CAPSULE (FP) PO SCH (10:32)
[2022-09-17] MEDS: risperiDONE 1 MG TABLET PO SCH ×4 (10:32→22:17)
[2022-09-17] MEDS: BENZTROPINE MESYLATE PO SCH ×2 (10:32→22:14)
[2022-09-17] MEDS: PANTOPRAZOLE 40 MG TABLET PO SCH (10:32)
[2022-09-17] MEDS: SENNOSIDES/DOCUSATE COMBO (SENNA PLUS) TABLET (UD) PO SCH ×2 (10:33→22:17)
[2022-09-17 10:38] LABS: CHLORIDE 113 mmol/L (98-107); SODIUM 147 mmol/L (136-145)
[2022-09-17] MEDS: COLLAGENASE CLOSTRIDIUM HIST. 30 GRAMS TUBE TP SCH (10:50)
[2022-09-17] MEDS: ZINC OXIDE 20% TOPICAL OINTMENT 30 GM TUBE TP SCH ×2 (10:50→22:18)
[2022-09-17 10:55] LABS: ALBUMIN 1.5 g/dl (3.4-5.0); ANION GAP 9 MMOL/L (8-16); CO2 26 mmol/L (21-32); GLUCOSE,RANDOM 92 mg/dL (74-106)
[2022-09-17 10:56] LABS: MAGNESIUM 2.2 mg/dL (1.8-2.4)
[2022-09-17 10:57] LABS: SGPT/ALT 19 U/L (13-61)
[2022-09-17 10:58] LABS: CREATININE 0.2 mg/dL (0.55-1.3); PHOSPHOROUS 2.7 mg/dL (2.5-4.9); SGOT/AST 35 U/L (15-37)
[2022-09-17 10:59] LABS: TOT PROT 4.5 g/dl (6.4-8.2)
[2022-09-17 11:00] LABS: BILIRUBIN,TOTAL 0.2 mg/dL (0.2-1)
[2022-09-17 11:01] LABS: ALK PHOS 101 U/L (45-117)
[2022-09-17 11:10] LABS: BLOOD UREA NITROGEN 1.5 mg/dL (7-18)
[2022-09-17] MEDS: VANCOMYCIN/WATER FOR INJ (PEG) 1,000 MG/200 ML BAG IVPB SCH ×2 (12:54→22:18)
[2022-09-17] MEDS: FOLIC ACID 1 MG TABLET (FP) PO SCH (14:06)
[2022-09-17] MEDS: ATORVASTATIN CA 10 MG TABLET (FP) PO SCH (22:14)
[2022-09-17] MEDS: PRIMIDONE 50 MG TABLET PO SCH (22:16)
[2022-09-18] MEDS: VANCOMYCIN/WATER FOR INJ (PEG) 1,000 MG/200 ML BAG IVPB SCH ×2 (01:00→13:38)
[2022-09-18] MEDS: PIPERACILLIN/TAZOB 3.375 GM 3.375 GM in DEXTROSE 5%-WATER - 50 ML IVPB SCH ×3 (02:42→18:50)
[2022-09-18] MEDS: LEVOTHYROXINE NA 25 MCG TABLET (FP) PO SCH (06:08)
[2022-09-18] MEDS: HEPARIN NA (PORCINE) 5,000 UNITS/ML 1ML VIAL SQ SCH ×3 (06:08→22:10)
[2022-09-18] MEDS: AMINO ACIDS/PROTEIN HYDROLYS 30 ML LIQUID.PKT PO SCH ×2 (07:57→18:50)
[2022-09-18 09:25] LABS: BASO % 0.7 % (0-2.0); EOS % 2.6 % (0-4.5); HEMATOCRIT 28.2 % (32.4-45.2); HEMOGLOBIN 8.9 GM/dL (10.7-15.3); LYMPH % 31.6 % (8-40); MCH 28.6 pg (25.7-33.7); MCHC 31.7 g/dl (32.0-36.0); MEAN CELL VOLUME 90.3 fl (80-96); MEAN PLT VOLUME 8.4 fl (7.5-11.1); MONO % 12.3 % (3.8-10.2); NEUT % 52.8 % (42.8-82.8); PLATELET COUNT 271 10^3/uL (134-434); RBC 3.12 M/mm3 (3.60-5.2); RDW 16.3 % (11.6-15.6); WHITE BLOOD COUNT 4.1 K/mm3 (4.0-10.0)
[2022-09-18 10:16] LABS: CHLORIDE 112 mmol/L (98-107); SODIUM 147 mmol/L (136-145)
[2022-09-18 10:30] LABS: CALCIUM 8.3 mg/dL (8.5-10.1)
[2022-09-18] MEDS: ZINC OXIDE 20% TOPICAL OINTMENT 30 GM TUBE TP SCH ×2 (10:30→22:13)
[2022-09-18 10:31] LABS: ALBUMIN 1.6 g/dl (3.4-5.0); ANION GAP 9 MMOL/L (8-16); CO2 27 mmol/L (21-32); CREATININE 0.2 mg/dL (0.55-1.3); GLUCOSE,RANDOM 94 mg/dL (74-106); MAGNESIUM 2.2 mg/dL (1.8-2.4)
[2022-09-18 10:32] LABS: BILIRUBIN,TOTAL 0.3 mg/dL (0.2-1); SGOT/AST 18 U/L (15-37)
[2022-09-18 10:33] LABS: TOT PROT 4.7 g/dl (6.4-8.2)
[2022-09-18 10:35] LABS: ALK PHOS 107 U/L (45-117); PHOSPHOROUS 3.1 mg/dL (2.5-4.9); SGPT/ALT 16 U/L (13-61)
[2022-09-18] MEDS: PANTOPRAZOLE 40 MG TABLET PO SCH (10:39)
[2022-09-18] MEDS: VALPROATE SODIUM 250 MG/5 ML UNIT DOSE CUP PO SCH ×2 (10:39→22:10)
[2022-09-18] MEDS: MULTIVITAMINS (DAILY MVI) TABLET (FP) PO SCH (10:39)
[2022-09-18] MEDS: ASCORBIC ACID 500 MG TABLET (FP) PO SCH ×2 (10:39→22:12)
[2022-09-18] MEDS: FOLIC ACID 1 MG TABLET (FP) PO SCH (10:39)
[2022-09-18] MEDS: GABAPENTIN 100 MG CAPSULE PO SCH ×2 (10:39→22:11)
[2022-09-18] MEDS: FERROUS SO4 325 MG TABLET (FP) PO SCH (10:39)
[2022-09-18] MEDS: risperiDONE 1 MG TABLET PO SCH ×2 (10:39→22:11)
[2022-09-18] MEDS: ZINC SULFATE 220 MG CAPSULE (FP) PO SCH (10:39)
[2022-09-18] MEDS: BENZTROPINE MESYLATE PO SCH ×2 (10:41→22:11)
[2022-09-18] MEDS: SENNOSIDES/DOCUSATE COMBO (SENNA PLUS) TABLET (UD) PO SCH ×2 (10:41→22:11)
[2022-09-18] MEDS: COLLAGENASE CLOSTRIDIUM HIST. 30 GRAMS TUBE TP SCH (18:50)
[2022-09-18] MEDS: PRIMIDONE 50 MG TABLET PO SCH (22:10)
[2022-09-18] MEDS: ATORVASTATIN CA 10 MG TABLET (FP) PO SCH (22:12)
[2022-09-19] MEDS: VANCOMYCIN/WATER FOR INJ (PEG) 1,000 MG/200 ML BAG IVPB SCH ×3 (00:17→22:42)
[2022-09-19] MEDS: PIPERACILLIN/TAZOB 3.375 GM 3.375 GM in DEXTROSE 5%-WATER - 50 ML IVPB SCH ×3 (02:45→17:44)
[2022-09-19] MEDS: LEVOTHYROXINE NA 25 MCG TABLET (FP) PO SCH (06:11)
[2022-09-19] MEDS: HEPARIN NA (PORCINE) 5,000 UNITS/ML 1ML VIAL SQ SCH ×3 (06:11→22:42)
[2022-09-19 09:15] LABS: BASO % 0.9 % (0-2.0); EOS % 2.8 % (0-4.5); HEMATOCRIT 29.3 % (32.4-45.2); HEMOGLOBIN 9.3 GM/dL (10.7-15.3); LYMPH % 25.1 % (8-40); MCH 28.9 pg (25.7-33.7); MCHC 31.8 g/dl (32.0-36.0); MEAN CELL VOLUME 90.7 fl (80-96); MEAN PLT VOLUME 8.3 fl (7.5-11.1); MONO % 14.8 % (3.8-10.2); NEUT % 56.4 % (42.8-82.8); PLATELET COUNT 299 10^3/uL (134-434); RBC 3.23 M/mm3 (3.60-5.2); RDW 16.6 % (11.6-15.6); WHITE BLOOD COUNT 3.8 K/mm3 (4.0-10.0)
[2022-09-19 09:38] LABS: ALBUMIN 1.5 g/dl (3.4-5.0); CALCIUM 7.9 mg/dL (8.5-10.1)
[2022-09-19 09:39] LABS: BLOOD UREA NITROGEN 3.2 mg/dL (7-18); MAGNESIUM 2.1 mg/dL (1.8-2.4)
[2022-09-19] MEDS: AMINO ACIDS/PROTEIN HYDROLYS 30 ML LIQUID.PKT PO SCH ×2 (09:39→17:45)
[2022-09-19 09:41] LABS: CREATININE 0.3 mg/dL (0.55-1.3); PHOSPHOROUS 3.8 mg/dL (2.5-4.9)
[2022-09-19 09:43] LABS: BILIRUBIN,TOTAL 0.4 mg/dL (0.2-1); TOT PROT 4.5 g/dl (6.4-8.2)
[2022-09-19] MEDS: ASCORBIC ACID 500 MG TABLET (FP) PO SCH ×2 (13:03→22:43)
[2022-09-19] MEDS: MULTIVITAMINS (DAILY MVI) TABLET (FP) PO SCH (13:03)
[2022-09-19] MEDS: FERROUS SO4 325 MG TABLET (FP) PO SCH (13:04)
[2022-09-19] MEDS: PANTOPRAZOLE 40 MG TABLET PO SCH (13:04)
[2022-09-19] MEDS: GABAPENTIN 100 MG CAPSULE PO SCH ×2 (13:04→22:43)
[2022-09-19] MEDS: FOLIC ACID 1 MG TABLET (FP) PO SCH (13:04)
[2022-09-19] MEDS: BENZTROPINE MESYLATE PO SCH ×2 (13:05→22:41)
[2022-09-19] MEDS: VALPROATE SODIUM 250 MG/5 ML UNIT DOSE CUP PO SCH ×2 (13:05→22:42)
[2022-09-19] MEDS: SENNOSIDES/DOCUSATE COMBO (SENNA PLUS) TABLET (UD) PO SCH ×2 (13:09→22:43)
[2022-09-19] MEDS: ZINC SULFATE 220 MG CAPSULE (FP) PO SCH (13:09)
[2022-09-19] MEDS: ZINC OXIDE 20% TOPICAL OINTMENT 30 GM TUBE TP SCH ×2 (13:10→23:05)
[2022-09-19] MEDS: risperiDONE 1 MG TABLET PO SCH ×2 (13:10→22:43)
[2022-09-19] MEDS: COLLAGENASE CLOSTRIDIUM HIST. 30 GRAMS TUBE TP SCH (17:00)
[2022-09-19] MEDS ORDERED: ACETAMINOPHEN 1000 MG/100 ML BAG IVPB ONE (20:36)
[2022-09-19] MEDS: PRIMIDONE 50 MG TABLET PO SCH (22:42)
[2022-09-19] MEDS: ATORVASTATIN CA 10 MG TABLET (FP) PO SCH (22:42)
[2022-09-20] MEDS: PIPERACILLIN/TAZOB 3.375 GM 3.375 GM in DEXTROSE 5%-WATER - 50 ML IVPB SCH ×3 (01:42→16:59)
[2022-09-20] MEDS: LEVOTHYROXINE NA 25 MCG TABLET (FP) PO SCH (06:23)
[2022-09-20] MEDS: HEPARIN NA (PORCINE) 5,000 UNITS/ML 1ML VIAL SQ SCH ×3 (06:23→21:48)
[2022-09-20] MEDS ORDERED: SODIUM CHLORIDE 1,000 ML IV SCH (07:15)
[2022-09-20] MEDS: AMINO ACIDS/PROTEIN HYDROLYS 30 ML LIQUID.PKT PO SCH ×2 (08:05→16:59)
[2022-09-20 11:19] LABS: BASO % 0.7 % (0-2.0); HEMOGLOBIN 9.5 GM/dL (10.7-15.3); LYMPH % 22.9 % (8-40); MCH 29.1 pg (25.7-33.7); MCHC 31.6 g/dl (32.0-36.0); MEAN CELL VOLUME 92.1 fl (80-96); MONO % 16.6 % (3.8-10.2); NEUT % 56.8 % (42.8-82.8); PLATELET COUNT 337 10^3/uL (134-434); RBC 3.26 M/mm3 (3.60-5.2); RDW 16.9 % (11.6-15.6); WHITE BLOOD COUNT 3.7 K/mm3 (4.0-10.0)
[2022-09-20 11:39] LABS: CALCIUM 7.9 mg/dL (8.5-10.1)
[2022-09-20 11:40] LABS: ALBUMIN 1.6 g/dl (3.4-5.0); BLOOD UREA NITROGEN 4.5 mg/dL (7-18); MAGNESIUM 2.2 mg/dL (1.8-2.4)
[2022-09-20 11:44] LABS: TOT PROT 4.9 g/dl (6.4-8.2)
[2022-09-20 11:48] LABS: CREATININE 0.3 mg/dL (0.55-1.3)
[2022-09-20 11:50] LABS: BILIRUBIN,TOTAL 0.3 mg/dL (0.2-1); PHOSPHOROUS 3.8 mg/dL (2.5-4.9)
[2022-09-20] MEDS: VANCOMYCIN/WATER FOR INJ (PEG) 1,000 MG/200 ML BAG IVPB SCH (12:22)
[2022-09-20] MEDS: GABAPENTIN 100 MG CAPSULE PO SCH ×2 (12:27→21:50)
[2022-09-20] MEDS: VALPROATE SODIUM 250 MG/5 ML UNIT DOSE CUP PO SCH ×2 (12:28→21:49)
[2022-09-20] MEDS: MULTIVITAMINS (DAILY MVI) TABLET (FP) PO SCH (12:28)
[2022-09-20] MEDS: PANTOPRAZOLE 40 MG TABLET PO SCH (12:28)
[2022-09-20] MEDS: FOLIC ACID 1 MG TABLET (FP) PO SCH (12:28)
[2022-09-20] MEDS: risperiDONE 1 MG TABLET PO SCH ×2 (12:28→21:51)
[2022-09-20] MEDS: FERROUS SO4 325 MG TABLET (FP) PO SCH (12:28)
[2022-09-20] MEDS: SENNOSIDES/DOCUSATE COMBO (SENNA PLUS) TABLET (UD) PO SCH ×2 (12:29→21:51)
[2022-09-20] MEDS: BENZTROPINE MESYLATE PO SCH ×2 (12:29→21:52)
[2022-09-20] MEDS: ASCORBIC ACID 500 MG TABLET (FP) PO SCH ×2 (12:32→21:50)
[2022-09-20] MEDS: ZINC SULFATE 220 MG CAPSULE (FP) PO SCH (12:32)
[2022-09-20] MEDS: ZINC OXIDE 20% TOPICAL OINTMENT 30 GM TUBE TP SCH ×2 (12:32→21:54)
[2022-09-20] MEDS: COLLAGENASE CLOSTRIDIUM HIST. 30 GRAMS TUBE TP SCH (16:59)
[2022-09-20] MEDS: ATORVASTATIN CA 10 MG TABLET (FP) PO SCH (21:50)
[2022-09-20] MEDS: PRIMIDONE 50 MG TABLET PO SCH (21:52)
[2022-09-21] MEDS: PIPERACILLIN/TAZOB 3.375 GM 3.375 GM in DEXTROSE 5%-WATER - 50 ML IVPB SCH ×3 (01:56→17:00)
[2022-09-21] MEDS: HEPARIN NA (PORCINE) 5,000 UNITS/ML 1ML VIAL SQ SCH ×3 (06:03→22:19)
[2022-09-21] MEDS: LEVOTHYROXINE NA 25 MCG TABLET (FP) PO SCH (06:03)
[2022-09-21] MEDS: AMINO ACIDS/PROTEIN HYDROLYS 30 ML LIQUID.PKT PO SCH ×3 (08:39→17:00)
[2022-09-21] MEDS: GABAPENTIN 100 MG CAPSULE PO SCH ×2 (09:41→22:19)
[2022-09-21] MEDS: ASCORBIC ACID 500 MG TABLET (FP) PO SCH ×2 (09:41→22:19)
[2022-09-21] MEDS: PANTOPRAZOLE 40 MG TABLET PO SCH (09:41)
[2022-09-21] MEDS: FERROUS SO4 325 MG TABLET (FP) PO SCH (09:41)
[2022-09-21] MEDS: VALPROATE SODIUM 250 MG/5 ML UNIT DOSE CUP PO SCH ×2 (09:41→22:19)
[2022-09-21] MEDS: FOLIC ACID 1 MG TABLET (FP) PO SCH (09:41)
[2022-09-21] MEDS: ZINC SULFATE 220 MG CAPSULE (FP) PO SCH (09:41)
[2022-09-21] MEDS: MULTIVITAMINS (DAILY MVI) TABLET (FP) PO SCH (09:41)
[2022-09-21] MEDS: POLYETHYLENE GLYCOL (HEALTHYLAX) 3350 17 GM PACKET PO SCH ×2 (09:42→09:58)
[2022-09-21] MEDS: BENZTROPINE MESYLATE PO SCH (09:42)
[2022-09-21] MEDS: SENNOSIDES/DOCUSATE COMBO (SENNA PLUS) TABLET (UD) PO SCH ×2 (09:43→09:58)
[2022-09-21] MEDS: risperiDONE 1 MG TABLET PO SCH ×2 (09:44→09:57)
[2022-09-21] MEDS: ZINC OXIDE 20% TOPICAL OINTMENT 30 GM TUBE TP SCH ×2 (09:44→22:26)
[2022-09-21] MEDS: COLLAGENASE CLOSTRIDIUM HIST. 30 GRAMS TUBE TP SCH (09:44)
[2022-09-21 11:44] LABS: BASO % 0.7 % (0-2.0); EOS % 1.9 % (0-4.5); HEMATOCRIT 29.6 % (32.4-45.2); HEMOGLOBIN 9.3 GM/dL (10.7-15.3); LYMPH % 32.4 % (8-40); MCH 28.5 pg (25.7-33.7); MCHC 31.3 g/dl (32.0-36.0); MEAN CELL VOLUME 91.1 fl (80-96); MONO % 16.3 % (3.8-10.2); NEUT % 48.7 % (42.8-82.8); PLATELET COUNT 407 10^3/uL (134-434); RBC 3.25 M/mm3 (3.60-5.2); RDW 16.6 % (11.6-15.6); WHITE BLOOD COUNT 4.4 K/mm3 (4.0-10.0)
[2022-09-21 12:08] LABS: ALBUMIN 1.6 g/dl (3.4-5.0); BLOOD UREA NITROGEN 4.2 mg/dL (7-18); MAGNESIUM 2.2 mg/dL (1.8-2.4)
[2022-09-21 12:11] LABS: CREATININE 0.3 mg/dL (0.55-1.3); PHOSPHOROUS 3.6 mg/dL (2.5-4.9); TOT PROT 4.6 g/dl (6.4-8.2)
[2022-09-21 12:12] LABS: BILIRUBIN,TOTAL 0.3 mg/dL (0.2-1)
[2022-09-21] MEDS: ATORVASTATIN CA 10 MG TABLET (FP) PO SCH (22:27)
[2022-09-22] MEDS: PRIMIDONE 50 MG TABLET PO SCH (02:13)
[2022-09-22] MEDS: BENZTROPINE MESYLATE PO SCH ×2 (02:13→09:24)
[2022-09-22] MEDS: SENNOSIDES/DOCUSATE COMBO (SENNA PLUS) TABLET (UD) PO SCH ×3 (02:13→23:26)
[2022-09-22] MEDS: risperiDONE 1 MG TABLET PO SCH ×3 (02:13→23:26)
[2022-09-22] MEDS: PIPERACILLIN/TAZOB 3.375 GM 3.375 GM in DEXTROSE 5%-WATER - 50 ML IVPB SCH ×3 (02:27→17:50)
[2022-09-22] MEDS: HEPARIN NA (PORCINE) 5,000 UNITS/ML 1ML VIAL SQ SCH ×3 (06:36→23:24)
[2022-09-22] MEDS: LEVOTHYROXINE NA 25 MCG TABLET (FP) PO SCH (06:37)
[2022-09-22] MEDS: AMINO ACIDS/PROTEIN HYDROLYS 30 ML LIQUID.PKT PO SCH ×2 (08:15→17:51)
[2022-09-22] MEDS: ZINC SULFATE 220 MG CAPSULE (FP) PO SCH (09:22)
[2022-09-22] MEDS: VALPROATE SODIUM 250 MG/5 ML UNIT DOSE CUP PO SCH ×2 (09:22→23:25)
[2022-09-22] MEDS: PANTOPRAZOLE 40 MG TABLET PO SCH (09:22)
[2022-09-22] MEDS: ASCORBIC ACID 500 MG TABLET (FP) PO SCH ×2 (09:22→23:24)
[2022-09-22] MEDS: MULTIVITAMINS (DAILY MVI) TABLET (FP) PO SCH (09:22)
[2022-09-22] MEDS: POLYETHYLENE GLYCOL (HEALTHYLAX) 3350 17 GM PACKET PO SCH (09:22)
[2022-09-22] MEDS: FERROUS SO4 325 MG TABLET (FP) PO SCH (09:23)
[2022-09-22] MEDS: ACETAMINOPHEN 325 MG TABLET (FP) PO PRN (09:23)
[2022-09-22] MEDS: GABAPENTIN 100 MG CAPSULE PO SCH ×2 (09:23→23:25)
[2022-09-22] MEDS: FOLIC ACID 1 MG TABLET (FP) PO SCH (09:23)
[2022-09-22] MEDS: ZINC OXIDE 20% TOPICAL OINTMENT 30 GM TUBE TP SCH ×2 (09:25→23:26)
[2022-09-22] MEDS: COLLAGENASE CLOSTRIDIUM HIST. 30 GRAMS TUBE TP SCH (09:25)
[2022-09-22] MEDS: ATORVASTATIN CA 10 MG TABLET (FP) PO SCH (23:24)
[2022-09-23] MEDS: PIPERACILLIN/TAZOB 3.375 GM 3.375 GM in DEXTROSE 5%-WATER - 50 ML IVPB SCH ×3 (01:35→18:10)
[2022-09-23] MEDS: PRIMIDONE 50 MG TABLET PO SCH ×2 (01:36→22:16)
[2022-09-23] MEDS: BENZTROPINE MESYLATE PO SCH ×3 (01:36→22:09)
[2022-09-23] MEDS: HEPARIN NA (PORCINE) 5,000 UNITS/ML 1ML VIAL SQ SCH ×3 (06:30→22:11)
[2022-09-23] MEDS: LEVOTHYROXINE NA 25 MCG TABLET (FP) PO SCH (06:30)
[2022-09-23 08:41] LABS: BASO % 0.7 % (0-2.0); EOS % 1.6 % (0-4.5); HEMATOCRIT 30.5 % (32.4-45.2); HEMOGLOBIN 9.8 GM/dL (10.7-15.3); LYMPH % 38.2 % (8-40); MCH 29.4 pg (25.7-33.7); MCHC 32.2 g/dl (32.0-36.0); MEAN CELL VOLUME 91.4 fl (80-96); MEAN PLT VOLUME 7.6 fl (7.5-11.1); MONO % 13.5 % (3.8-10.2); PLATELET COUNT 388 10^3/uL (134-434); RBC 3.34 M/mm3 (3.60-5.2); RDW 16.6 % (11.6-15.6); WHITE BLOOD COUNT 4.3 K/mm3 (4.0-10.0)
[2022-09-23 09:04] LABS: CALCIUM 8.3 mg/dL (8.5-10.1)
[2022-09-23 09:05] LABS: ALBUMIN 1.7 g/dl (3.4-5.0); BLOOD UREA NITROGEN 4.5 mg/dL (7-18); MAGNESIUM 2.2 mg/dL (1.8-2.4)
[2022-09-23 09:08] LABS: CREATININE 0.3 mg/dL (0.55-1.3); PHOSPHOROUS 3.8 mg/dL (2.5-4.9)
[2022-09-23 09:09] LABS: BILIRUBIN,TOTAL 0.3 mg/dL (0.2-1)
[2022-09-23] MEDS: AMINO ACIDS/PROTEIN HYDROLYS 30 ML LIQUID.PKT PO SCH ×2 (09:59→18:10)
[2022-09-23] MEDS: MULTIVITAMINS (DAILY MVI) TABLET (FP) PO SCH (10:00)
[2022-09-23] MEDS: POLYETHYLENE GLYCOL (HEALTHYLAX) 3350 17 GM PACKET PO SCH (10:00)
[2022-09-23] MEDS: VALPROATE SODIUM 250 MG/5 ML UNIT DOSE CUP PO SCH ×2 (10:00→22:09)
[2022-09-23] MEDS: PANTOPRAZOLE 40 MG TABLET PO SCH (10:01)
[2022-09-23] MEDS: ASCORBIC ACID 500 MG TABLET (FP) PO SCH ×2 (10:01→22:09)
[2022-09-23] MEDS: FERROUS SO4 325 MG TABLET (FP) PO SCH (10:01)
[2022-09-23] MEDS: GABAPENTIN 100 MG CAPSULE PO SCH ×2 (10:01→22:09)
[2022-09-23] MEDS: SENNOSIDES/DOCUSATE COMBO (SENNA PLUS) TABLET (UD) PO SCH ×2 (10:01→22:09)
[2022-09-23] MEDS: ZINC SULFATE 220 MG CAPSULE (FP) PO SCH (10:01)
[2022-09-23] MEDS: COLLAGENASE CLOSTRIDIUM HIST. 30 GRAMS TUBE TP SCH (10:01)
[2022-09-23] MEDS: risperiDONE 1 MG TABLET PO SCH ×2 (10:01→22:10)
[2022-09-23] MEDS: FOLIC ACID 1 MG TABLET (FP) PO SCH (10:01)
[2022-09-23] MEDS: ZINC OXIDE 20% TOPICAL OINTMENT 30 GM TUBE TP SCH ×2 (10:02→22:16)
[2022-09-23] MEDS: ATORVASTATIN CA 10 MG TABLET (FP) PO SCH (22:10)
[2022-09-24] MEDS: PIPERACILLIN/TAZOB 3.375 GM 3.375 GM in DEXTROSE 5%-WATER - 50 ML IVPB SCH ×2 (01:07→11:04)
[2022-09-24] MEDS: HEPARIN NA (PORCINE) 5,000 UNITS/ML 1ML VIAL SQ SCH (06:05)
[2022-09-24] MEDS: LEVOTHYROXINE NA 25 MCG TABLET (FP) PO SCH (06:09)
[2022-09-24] MEDS: ASCORBIC ACID 500 MG TABLET (FP) PO SCH ×2 (10:00→21:33)
[2022-09-24] MEDS: FOLIC ACID 1 MG TABLET (FP) PO SCH ×2 (10:00→10:01)
[2022-09-24] MEDS: AMINO ACIDS/PROTEIN HYDROLYS 30 ML LIQUID.PKT PO SCH ×2 (10:00→16:31)
[2022-09-24] MEDS: PANTOPRAZOLE 40 MG TABLET PO SCH (10:00)
[2022-09-24] MEDS: FERROUS SO4 325 MG TABLET (FP) PO SCH (10:01)
[2022-09-24] MEDS: BENZTROPINE MESYLATE PO SCH ×2 (10:44→21:40)
[2022-09-24] MEDS: SENNOSIDES/DOCUSATE COMBO (SENNA PLUS) TABLET (UD) PO SCH ×2 (10:45→21:33)
[2022-09-24] MEDS: GABAPENTIN 100 MG CAPSULE PO SCH ×2 (10:45→21:34)
[2022-09-24] MEDS: risperiDONE 1 MG TABLET PO SCH ×2 (10:45→21:33)
[2022-09-24] MEDS: ZINC SULFATE 220 MG CAPSULE (FP) PO SCH (10:45)
[2022-09-24] MEDS: VALPROATE SODIUM 250 MG/5 ML UNIT DOSE CUP PO SCH ×2 (10:47→21:34)
[2022-09-24] MEDS: POLYETHYLENE GLYCOL (HEALTHYLAX) 3350 17 GM PACKET PO SCH (10:47)
[2022-09-24] MEDS: COLLAGENASE CLOSTRIDIUM HIST. 30 GRAMS TUBE TP SCH (10:47)
[2022-09-24] MEDS: MULTIVITAMINS (DAILY MVI) TABLET (FP) PO SCH (10:48)
[2022-09-24] MEDS: ZINC OXIDE 20% TOPICAL OINTMENT 30 GM TUBE TP SCH ×2 (10:48→21:51)
[2022-09-24 11:27] VITALS: RESP 20
[2022-09-24] MEDS: AMOX TR/POT CLAV 500MG/125MG TABLETS (FP) PO SCH ×2 (12:15→16:30)
[2022-09-24] MEDS: ATORVASTATIN CA 10 MG TABLET (FP) PO SCH (21:34)
[2022-09-24] MEDS: PRIMIDONE 50 MG TABLET PO SCH (21:35)
[2022-09-25] MEDS: LEVOTHYROXINE NA 25 MCG TABLET (FP) PO SCH (06:33)
[2022-09-25 06:57] VITALS: BP 103/58; PULSE 91; TEMP 98.9
[2022-09-25] MEDS: GABAPENTIN 100 MG CAPSULE PO SCH (10:07)
[2022-09-25] MEDS: PANTOPRAZOLE 40 MG TABLET PO SCH (10:08)
[2022-09-25] MEDS: SENNOSIDES/DOCUSATE COMBO (SENNA PLUS) TABLET (UD) PO SCH (10:08)
[2022-09-25] MEDS: ASCORBIC ACID 500 MG TABLET (FP) PO SCH (10:09)
[2022-09-25] MEDS: FOLIC ACID 1 MG TABLET (FP) PO SCH (10:10)
[2022-09-25] MEDS: AMOX TR/POT CLAV 500MG/125MG TABLETS (FP) PO SCH (10:14)
[2022-09-25] MEDS: VALPROATE SODIUM 250 MG/5 ML UNIT DOSE CUP PO SCH (10:15)
[2022-09-25] MEDS: AMINO ACIDS/PROTEIN HYDROLYS 30 ML LIQUID.PKT PO SCH (10:19)
[2022-09-25] MEDS: risperiDONE 1 MG TABLET PO SCH (10:20)
[2022-09-25] MEDS: ZINC SULFATE 220 MG CAPSULE (FP) PO SCH (10:22)
[2022-09-25] MEDS: FERROUS SO4 325 MG TABLET (FP) PO SCH (10:24)
[2022-09-25] MEDS: POLYETHYLENE GLYCOL (HEALTHYLAX) 3350 17 GM PACKET PO SCH (10:24)
[2022-09-25] MEDS: MULTIVITAMINS (DAILY MVI) TABLET (FP) PO SCH (10:25)
[2022-09-25] MEDS: ZINC OXIDE 20% TOPICAL OINTMENT 30 GM TUBE TP SCH (10:25)
[2022-09-25] MEDS: BENZTROPINE MESYLATE PO SCH (10:46)
[2022-09-25] MEDS: COLLAGENASE CLOSTRIDIUM HIST. 30 GRAMS TUBE TP SCH (10:47)
[2022-09-25 10:56] LABS: BASO % 0.5 % (0-2.0); EOS % 1.1 % (0-4.5); HEMATOCRIT 31.9 % (32.4-45.2); HEMOGLOBIN 9.9 GM/dL (10.7-15.3); LYMPH % 31.9 % (8-40); MEAN CELL VOLUME 90.4 fl (80-96); MEAN PLT VOLUME 7.8 fl (7.5-11.1); MONO % 10.6 % (3.8-10.2); NEUT % 55.9 % (42.8-82.8); PLATELET COUNT 419 10^3/uL (134-434); RBC 3.53 M/mm3 (3.60-5.2); RDW 16.8 % (11.6-15.6); WHITE BLOOD COUNT 5.9 K/mm3 (4.0-10.0)
[2022-09-25 11:22] LABS: ALBUMIN 1.7 g/dl (3.4-5.0); BLOOD UREA NITROGEN 4.2 mg/dL (7-18); CALCIUM 8.3 mg/dL (8.5-10.1)
[2022-09-25 11:25] LABS: CREATININE 0.3 mg/dL (0.55-1.3)
[2022-09-25 11:27] LABS: BILIRUBIN,TOTAL 0.4 mg/dL (0.2-1)
[2022-09-25] MEDS ORDERED: METOPROLOL TARTRATE 5 MG/5 ML VIAL IVPUSH ONE (11:32)
== END 2022-09-25 11:36 | DRG 711 ==
LOC: JER 17:00 → JERBED 19:44 → J7W 08-28 09:52 → J5S 09-11 12:51 → J8W 09-23 01:38
PROVIDERS: ADMIT Internal Medicine
PROC: 04CL3ZZ Extirpation of Matter from Left Femoral Artery, Percutaneous Approach (ICD-10-PCS; 2022-09-06)
PROC: 047L3ZZ Dilation of Left Femoral Artery, Percutaneous Approach (ICD-10-PCS; 2022-09-06)
PROC: 30233N1 Transfusion of Nonautologous Red Blood Cells into Peripheral Vein, Percutaneous Approach (ICD-10-PCS; 2022-09-06)
PROC: B40DYZZ Plain Radiography of Aorta and Bilateral Lower Extremity Arteries using Other Contrast (ICD-10-PCS; principal; 2022-09-06 14:30)
DX: T80.211A Bloodstream infection due to central venous catheter, initial encounter (principal); A41.89 Other specified sepsis; G82.20 Paraplegia, unspecified; L89.613 Pressure ulcer of right heel, stage 3; I24.8 Other forms of acute ischemic heart disease; K92.2 Gastrointestinal hemorrhage, unspecified; G25.9 Extrapyramidal and movement disorder, unspecified; E11.52 Type 2 diabetes mellitus with diabetic peripheral angiopathy with gangrene; F20.0 Paranoid schizophrenia; E11.621 Type 2 diabetes mellitus with foot ulcer; L97.422 Non-pressure chronic ulcer of left heel and midfoot with fat layer exposed; N31.9 Neuromuscular dysfunction of bladder, unspecified; E11.69 Type 2 diabetes mellitus with other specified complication; E11.65 Type 2 diabetes mellitus with hyperglycemia; M86.8X7 Other osteomyelitis, ankle and foot; E87.0 Hyperosmolality and hypernatremia; D50.9 Iron deficiency anemia, unspecified; Y83.8 Other surgical procedures as the cause of abnormal reaction of the patient, or of later complication, without mention of misadventure at the time of the procedure; D64.9 Anemia, unspecified; E55.9 Vitamin D deficiency, unspecified; K21.9 Gastro-esophageal reflux disease without esophagitis; I10 Essential (primary) hypertension; F41.9 Anxiety disorder, unspecified; E03.9 Hypothyroidism, unspecified; J98.11 Atelectasis; E78.5 Hyperlipidemia, unspecified; N39.0 Urinary tract infection, site not specified; G24.01 Drug induced subacute dyskinesia; G40.909 Epilepsy, unspecified, not intractable, without status epilepticus; I70.298 Other atherosclerosis of native arteries of extremities, other extremity; R00.0 Tachycardia, unspecified; R50.9 Fever, unspecified
CPT/HCPCS: 0241U-QW; 36415; 36430; 71045-TC-FY; 75635-TC; 76000-TC-FY; 80048; 80053; 80061; 81003; 82272; 82607; 82728; 82746; 82784; 82962; 83036; 83540; 83550; 83605; 83615; 83735; 83883; 84100; 84155; 84165; 84439; 84443; 84466; 85025; 85045; 85610; 85730; 86803; 86850; 86900; 86901; 86922; 87040; 87077; 87086; 87389; 88300-TC; 93005; 93010; 93306-TC; 93970-TC; 94760; 97161-GP; 99285-25; C1760; C9803-CS; E0186; G0480; J1644; J1756; J2794; P9058; Q9967; U0003; U0005

== ENCOUNTER 2022-11-01 13:16 | Inpatient (IN) | payer OTHER ==
[2022-11-01] MEDS ORDERED: SODIUM CHLORIDE 2,041 ML IV ONE (14:18)
[2022-11-01] MEDS ORDERED: LACTATED RINGERS SOLUTION 1000 ML INFUS.BAG IV ONE ×3 (14:21→19:33)
[2022-11-01] MEDS ORDERED: ACETAMINOPHEN 1000 MG/100 ML BAG IVPB ONE (14:21)
[2022-11-01] MEDS ORDERED: PIPERACILLIN/TAZOB 4.5 GM 4.5 GM in DEXTROSE 5%-WATER 100 ML IVPB ONE (14:21)
[2022-11-01] MEDS ORDERED: VANCOMYCIN 1 GM in D5W (PRE-DOCKED) 1,000 MG/250 ML IVPB ONE (14:21)
[2022-11-01 14:36] LABS: VENOUS BASE EXCESS -1.1 mmol/L (-2-2); VENOUS O2 SATURATION 22.6 % (70-80); VENOUS PH 7.315 (7.310-7.410)
[2022-11-01 14:40] LABS: BASO % 1.3 % (0-2.0); EOS % 0.2 % (0-4.5); HEMATOCRIT 31.5 % (32.4-45.2); HEMOGLOBIN 10.1 GM/dL (10.7-15.3); LYMPH % 24.5 % (8-40); MCH 27.4 pg (25.7-33.7); MCHC 31.9 g/dl (32.0-36.0); MEAN CELL VOLUME 85.9 fl (80-96); MONO % 7.6 % (3.8-10.2); NEUT % 66.4 % (42.8-82.8); PLATELET COUNT 802 10^3/uL (134-434); RBC 3.67 M/mm3 (3.60-5.2); RDW 17.8 % (11.6-15.6); WHITE BLOOD COUNT 11.3 K/mm3 (4.0-10.0)
[2022-11-01 14:47] LABS: INR 1.49 (0.83-1.09); PROTHROMBIN TIME (PATIENT) 17.2 SEC (9.7-13.0)
[2022-11-01 14:50] LABS: ACTIVATED PTT 41.3 SECONDS (25.2-36.5)
[2022-11-01 15:07] LABS: CHLORIDE 91 mmol/L (98-107); SODIUM 131 mmol/L (136-145)
[2022-11-01 15:10] LABS: ALBUMIN 2.2 g/dl (3.4-5.0); ANION GAP 10 MMOL/L (8-16); BLOOD UREA NITROGEN 17.2 mg/dL (7-18); CO2 29 mmol/L (21-32); GLUCOSE,RANDOM 129 mg/dL (74-106)
[2022-11-01 15:13] LABS: CREATININE 0.6 mg/dL (0.55-1.3); SGOT/AST 21 U/L (15-37); SGPT/ALT 7 U/L (13-61)
[2022-11-01 15:14] LABS: BILIRUBIN,TOTAL 0.3 mg/dL (0.2-1); TOT PROT 7.4 g/dl (6.4-8.2)
[2022-11-01 15:16] LABS: ALK PHOS 124 U/L (45-117)
[2022-11-01] MEDS ORDERED: ACETAMINOPHEN INJECTION 100 ML IVPB ONE (15:39)
[2022-11-01] MEDS ORDERED: PIPERACILLIN/TAZOB 4.5 GM 4.5 GM/100 ML BAG IVPB ONE (15:39)
[2022-11-01 15:54] LABS: PH,URINE 5.5 (5.0-8.0); URINE APPEARANCE CLOUDY; URINE BILIRUBIN NEGATIVE (NEGATIVE); URINE COLOR YELLOW; URINE GLUCOSE (UA) NEGATIVE (NEGATIVE); URINE KETONE NEGATIVE (NEGATIVE); URINE LEUK ESTERASE NEGATIVE (NEGATIVE); URINE NITRITE NEGATIVE (NEGATIVE); URINE PROTEIN NEGATIVE (NEGATIVE); URINE UROBILINOGEN 0.2 mg/dL (0.2-1.0)
[2022-11-01] MEDS ORDERED: VANCOMYCIN/WATER FOR INJ (PEG) 1,000 MG/200 ML BAG IVPB ONE (18:25)
[2022-11-01] MEDS ORDERED: LACTATED RINGERS SOLUTION 1,000 ML/1,000 ML INFUS.BAG IV SCH (20:45)
[2022-11-01] MEDS ORDERED: fentaNYL CITRATE 250 MCG/5 ML VIAL ONE (21:16)
[2022-11-01] MEDS ORDERED: SODIUM CHLORIDE 1,000 ML IV SCH (22:00)
[2022-11-01] MEDS: CHLORHEXIDINE GLUCONATE 4% CLEANSER FOR DECOLONIZATION TP SCH (22:28)
[2022-11-01 22:31] LABS: BLOOD UREA NITROGEN 14.2 mg/dL (7-18); CALCIUM 8.1 mg/dL (8.5-10.1)
[2022-11-01] MEDS: INSULIN SLIDING SCALE (NOVOLOG) 1 VIAL SQ SCH (22:32)
[2022-11-01 22:35] LABS: CREATININE 0.4 mg/dL (0.55-1.3); PHOSPHOROUS 5.2 mg/dL (2.5-4.9)
[2022-11-01] MEDS: FAMOTIDINE 20 MG TABLET PO SCH (22:38)
[2022-11-01] MEDS ORDERED: SODIUM CHLORIDE 500 ML IV STA (23:13)
[2022-11-01] MEDS: MUPIROCIN 2% TOPICAL OINTMENT FOR DECOLONIZATION NS SCH (23:51)
[2022-11-01] MEDS: NOREPINEPHRINE BITARTRATE 16,000 MCG in SODIUM CHLORIDE 484 ML IV SCH (23:52)
[2022-11-02] MEDS ORDERED: ACETAMINOPHEN 1000 MG/100 ML BAG IVPB ONE (00:08)
[2022-11-02] MEDS ORDERED: PIPERACILLIN/TAZOB 3.375 GM 3.375 GM in DEXTROSE 5%-WATER - 50 ML IVPB SCH (02:00)
[2022-11-02] MEDS: LEVOTHYROXINE NA 25 MCG TABLET (FP) PO SCH (06:32)
[2022-11-02] MEDS: INSULIN SLIDING SCALE (NOVOLOG) 1 VIAL SQ SCH ×4 (06:45→21:16)
[2022-11-02] MEDS: NOREPINEPHRINE BITARTRATE 16,000 MCG in SODIUM CHLORIDE 484 ML IV SCH (07:00)
[2022-11-02 07:52] LABS: HEMATOCRIT 19.8 % (32.4-45.2); MCH 27.4 pg (25.7-33.7); MCHC 31.7 g/dl (32.0-36.0); MEAN CELL VOLUME 86.4 fl (80-96); MEAN PLT VOLUME 7.2 fl (7.5-11.1); PLATELET COUNT 537 10^3/uL (134-434); RBC 2.29 M/mm3 (3.60-5.2); RDW 17.9 % (11.6-15.6); WHITE BLOOD COUNT 23.4 K/mm3 (4.0-10.0)
[2022-11-02 08:05] LABS: HEMOGLOBIN 6.3 GM/dL (10.7-15.3)
[2022-11-02 08:21] LABS: CHLORIDE 100 mmol/L (98-107); SODIUM 135 mmol/L (136-145)
[2022-11-02 08:23] LABS: BLOOD UREA NITROGEN 14.4 mg/dL (7-18); CALCIUM 7.7 mg/dL (8.5-10.1)
[2022-11-02 08:24] LABS: ANION GAP 8 MMOL/L (8-16); CO2 27 mmol/L (21-32); GLUCOSE,RANDOM 129 mg/dL (74-106)
[2022-11-02 08:26] LABS: PHOSPHOROUS 5.7 mg/dL (2.5-4.9)
[2022-11-02 08:27] LABS: CREATININE 0.5 mg/dL (0.55-1.3); SGOT/AST 10 U/L (15-37)
[2022-11-02 08:28] LABS: BILIRUBIN,TOTAL 0.2 mg/dL (0.2-1)
[2022-11-02 08:30] LABS: ALBUMIN 1.5 g/dl (3.4-5.0); ALK PHOS 87 U/L (45-117); SGPT/ALT < 6 U/L (13-61); TOT PROT 4.9 g/dl (6.4-8.2)
[2022-11-02 08:58] LABS: ANISOCYTOSIS 3+; MACROCYTOSIS 0
[2022-11-02 09:56] LABS: LDH 172 U/L (84-246)
[2022-11-02 10:08] LABS: INR 1.48 (0.83-1.09); PROTHROMBIN TIME (PATIENT) 17.1 SEC (9.7-13.0)
[2022-11-02 10:10] LABS: ACTIVATED PTT 34.3 SECONDS (25.2-36.5)
[2022-11-02 10:12] LABS: HEMATOCRIT 21.2 % (32.4-45.2); MCH 26.6 pg (25.7-33.7); MEAN CELL VOLUME 85.8 fl (80-96); MEAN PLT VOLUME 6.8 fl (7.5-11.1); PLATELET COUNT 576 10^3/uL (134-434); RBC 2.48 M/mm3 (3.60-5.2); RDW 17.8 % (11.6-15.6); WHITE BLOOD COUNT 20.5 K/mm3 (4.0-10.0)
[2022-11-02 10:16] LABS: HEMOGLOBIN 6.6 GM/dL (10.7-15.3)
[2022-11-02] MEDS: FAMOTIDINE 20 MG TABLET PO SCH ×2 (10:36→21:10)
[2022-11-02] MEDS: FOLIC ACID 1 MG TABLET (FP) PO SCH (10:36)
[2022-11-02 10:48] LABS: ANISOCYTOSIS 1+; MACROCYTOSIS 0
[2022-11-02] MEDS ORDERED: morphine CARPU-JECT 2 MG/1 ML DISP.SYRIN SQ ONE (11:11)
[2022-11-02] MEDS ORDERED: LACTATED RINGERS SOLUTION 1,000 ML/1,000 ML INFUS.BAG IV ONE (11:11)
[2022-11-02] MEDS ORDERED: VANCOMYCIN 1 GM in D5W (PRE-DOCKED) 1,000 MG/250 ML IVPB SCH (12:00)
[2022-11-02] MEDS ORDERED: LACTATED RINGERS SOLUTION 1000 ML INFUS.BAG IV ONE (12:34)
[2022-11-02] MEDS: SODIUM CHLORIDE 1,000 ML IV SCH (12:40)
[2022-11-02] MEDS: MUPIROCIN 2% TOPICAL OINTMENT FOR DECOLONIZATION NS SCH ×2 (12:43→21:09)
[2022-11-02 15:39] LABS: HEMATOCRIT 23.6 % (32.4-45.2); HEMOGLOBIN 7.5 GM/dL (10.7-15.3); MCH 27.4 pg (25.7-33.7); MCHC 31.8 g/dl (32.0-36.0); MEAN CELL VOLUME 86.3 fl (80-96); PLATELET COUNT 506 10^3/uL (134-434); RBC 2.74 M/mm3 (3.60-5.2); RDW 16.8 % (11.6-15.6); WHITE BLOOD COUNT 20.2 K/mm3 (4.0-10.0)
[2022-11-02 15:59] LABS: ANISOCYTOSIS 1+; MACROCYTOSIS 0; TARGET CELLS 1+
[2022-11-02] MEDS: PIPERACILLIN/TAZOB 3.375 GM 3.375 GM in DEXTROSE 5%-WATER - 50 ML IVPB SCH ×2 (17:43→18:34)
[2022-11-02] MEDS: VANCOMYCIN/WATER FOR INJ (PEG) 1,000 MG/200 ML BAG IVPB SCH (17:44)
[2022-11-02 19:45] LABS: BASO % 0.1 % (0-2.0); HEMATOCRIT 21.9 % (32.4-45.2); HEMOGLOBIN 7.1 GM/dL (10.7-15.3); LYMPH % 2.7 % (8-40); MCH 27.7 pg (25.7-33.7); MCHC 32.4 g/dl (32.0-36.0); MEAN CELL VOLUME 85.6 fl (80-96); MEAN PLT VOLUME 6.6 fl (7.5-11.1); MONO % 4.8 % (3.8-10.2); NEUT % 90.4 % (42.8-82.8); PLATELET COUNT 490 10^3/uL (134-434); RBC 2.56 M/mm3 (3.60-5.2); RDW 16.8 % (11.6-15.6); WHITE BLOOD COUNT 16.1 K/mm3 (4.0-10.0)
[2022-11-02] MEDS: CHLORHEXIDINE GLUCONATE 4% CLEANSER FOR DECOLONIZATION TP SCH (21:09)
[2022-11-02] MEDS: GABAPENTIN 100 MG CAPSULE PO SCH (21:10)
[2022-11-02] MEDS ORDERED: BENZTROPINE MESYLATE 1 MG TABLET PO SCH (22:00)
[2022-11-02] MEDS ORDERED: MIRTAZAPINE 15 MG TABLET (FP) PO SCH (22:00)
[2022-11-02] MEDS ORDERED: risperiDONE 1 MG TABLET PO SCH (22:00)
[2022-11-02] MEDS ORDERED: BENZTROPINE MESYLATE 0.5 MG TABLET (FP) PO SCH (22:00)
[2022-11-02] MEDS ORDERED: PRIMIDONE 50 MG TABLET PO SCH (22:00)
[2022-11-03] MEDS: PIPERACILLIN/TAZOB 3.375 GM 3.375 GM in DEXTROSE 5%-WATER - 50 ML IVPB SCH ×3 (01:48→17:23)
[2022-11-03] MEDS: VANCOMYCIN/WATER FOR INJ (PEG) 1,000 MG/200 ML BAG IVPB SCH ×2 (03:39→15:49)
[2022-11-03] MEDS: NOREPINEPHRINE BITARTRATE 16,000 MCG in SODIUM CHLORIDE 484 ML IV SCH ×2 (05:39→15:48)
[2022-11-03] MEDS: INSULIN SLIDING SCALE (NOVOLOG) 1 VIAL SQ SCH ×4 (05:59→22:36)
[2022-11-03] MEDS: LEVOTHYROXINE NA 25 MCG TABLET (FP) PO SCH (05:59)
[2022-11-03] MEDS ORDERED: ACETAMINOPHEN INJECTION 100 ML IVPB ONE (06:50)
[2022-11-03] MEDS: ACETAMINOPHEN 1000 MG/100 ML BAG IVPB PRN (07:13)
[2022-11-03 07:28] LABS: BASO % 0.3 % (0-2.0); EOS % 3.6 % (0-4.5); HEMATOCRIT 22.1 % (32.4-45.2); HEMOGLOBIN 7.2 GM/dL (10.7-15.3); MCHC 32.4 g/dl (32.0-36.0); MEAN CELL VOLUME 86.6 fl (80-96); MEAN PLT VOLUME 6.7 fl (7.5-11.1); MONO % 7.3 % (3.8-10.2); NEUT % 85.8 % (42.8-82.8); PLATELET COUNT 454 10^3/uL (134-434); RBC 2.56 M/mm3 (3.60-5.2); RDW 17.1 % (11.6-15.6); WHITE BLOOD COUNT 10.8 K/mm3 (4.0-10.0)
[2022-11-03 07:48] LABS: ALBUMIN 1.4 g/dl (3.4-5.0); CALCIUM 7.4 mg/dL (8.5-10.1)
[2022-11-03 07:50] LABS: MAGNESIUM 1.8 mg/dL (1.8-2.4)
[2022-11-03 07:51] LABS: PHOSPHOROUS 3.2 mg/dL (2.5-4.9)
[2022-11-03 07:53] LABS: CREATININE 0.4 mg/dL (0.55-1.3)
[2022-11-03 07:54] LABS: BILIRUBIN,TOTAL 0.3 mg/dL (0.2-1); TOT PROT 4.4 g/dl (6.4-8.2)
[2022-11-03] MEDS: FAMOTIDINE 20 MG TABLET PO SCH ×2 (09:51→22:36)
[2022-11-03] MEDS: FOLIC ACID 1 MG TABLET (FP) PO SCH (09:51)
[2022-11-03] MEDS: GABAPENTIN 100 MG CAPSULE PO SCH ×2 (09:51→22:36)
[2022-11-03] MEDS: MUPIROCIN 2% TOPICAL OINTMENT FOR DECOLONIZATION NS SCH ×2 (09:51→22:35)
[2022-11-03] MEDS: SODIUM CHLORIDE 1,000 ML IV SCH ×3 (09:52→15:49)
[2022-11-03] MEDS ORDERED: VASOPRESSIN 40 UNITS/100 ML BAG IV SCH (11:00)
[2022-11-03] MEDS ORDERED: HYDROCORTISONE SOD SUCCINATE 100 MG/2 ML VIAL IVPUSH SCH (11:00)
[2022-11-03] MEDS ORDERED: FLUDROCORTISONE ACETATE 0.1 MG TABLET (FP) PO SCH (11:15)
[2022-11-03] MEDS ORDERED: ONDANSETRON 4 MG/2 ML VIAL IVPUSH PRN ×2 (12:55→15:38)
[2022-11-03 13:59] LABS: HEMATOCRIT 26.1 % (32.4-45.2); HEMOGLOBIN 8.6 GM/dL (10.7-15.3); MCH 28.5 pg (25.7-33.7); MCHC 32.8 g/dl (32.0-36.0); MEAN CELL VOLUME 86.7 fl (80-96); RBC 3.02 M/mm3 (3.60-5.2)
[2022-11-03 14:00] LABS: BASO % 0.2 % (0-2.0); EOS % 3.9 % (0-4.5); LYMPH % 2.3 % (8-40); MEAN PLT VOLUME 6.7 fl (7.5-11.1); MONO % 5.1 % (3.8-10.2); NEUT % 88.5 % (42.8-82.8); PLATELET COUNT 428 10^3/uL (134-434)
[2022-11-03] MEDS ORDERED: BUPIVACAINE HCL/PF 0.5% (5MG/ML) 10 ML VIAL ONE (14:11)
[2022-11-03] MEDS ORDERED: PROPOFOL 20 ML ONE ×2 (14:20→14:31)
[2022-11-03] MEDS ORDERED: ACETAMINOPHEN 1000 MG/100 ML BAG IVPB PRN (15:38)
[2022-11-03] MEDS: VASOPRESSIN 40 UNITS/100 ML BAG IV SCH (15:47)
[2022-11-03] MEDS: AMINO ACIDS/PROTEIN HYDROLYS 30 ML LIQUID.PKT PO SCH (17:23)
[2022-11-03] MEDS: COLLAGENASE CLOSTRIDIUM HIST. 30 GRAMS TUBE TP SCH (17:27)
[2022-11-03] MEDS ORDERED: AMINO ACIDS/PROTEIN HYDROLYS 30 ML LIQUID.PKT PO SCH (17:30)
[2022-11-03] MEDS: HYDROCORTISONE SOD SUCCINATE 100 MG/2 ML VIAL IVPUSH SCH (18:49)
[2022-11-03] MEDS ORDERED: BENZTROPINE MESYLATE 1 MG TABLET PO SCH (22:00)
[2022-11-03] MEDS: MIRTAZAPINE 15 MG TABLET (FP) PO SCH (22:36)
[2022-11-03] MEDS: risperiDONE 1 MG TABLET PO SCH (22:36)
[2022-11-03] MEDS: CHLORHEXIDINE GLUCONATE 4% CLEANSER FOR DECOLONIZATION TP SCH (22:36)
[2022-11-03] MEDS: PRIMIDONE 50 MG TABLET PO SCH (22:36)
[2022-11-03] MEDS: BENZTROPINE MESYLATE 1 MG TABLET PO SCH (22:36)
[2022-11-04] MEDS: PIPERACILLIN/TAZOB 3.375 GM 3.375 GM in DEXTROSE 5%-WATER - 50 ML IVPB SCH ×3 (01:36→17:17)
[2022-11-04] MEDS: HYDROCORTISONE SOD SUCCINATE 100 MG/2 ML VIAL IVPUSH SCH ×3 (02:40→19:00)
[2022-11-04] MEDS: VANCOMYCIN/WATER FOR INJ (PEG) 1,000 MG/200 ML BAG IVPB SCH ×2 (02:40→15:48)
[2022-11-04] MEDS: ACETAMINOPHEN 1000 MG/100 ML BAG IVPB PRN (05:00)
[2022-11-04] MEDS: INSULIN SLIDING SCALE (NOVOLOG) 1 VIAL SQ SCH ×4 (06:13→22:10)
[2022-11-04] MEDS: LEVOTHYROXINE NA 25 MCG TABLET (FP) PO SCH (07:01)
[2022-11-04 07:21] LABS: HEMATOCRIT 26.2 % (32.4-45.2); HEMOGLOBIN 8.5 GM/dL (10.7-15.3); MCH 28.2 pg (25.7-33.7); MCHC 32.5 g/dl (32.0-36.0); MEAN CELL VOLUME 86.8 fl (80-96); MEAN PLT VOLUME 6.5 fl (7.5-11.1); PLATELET COUNT 389 10^3/uL (134-434); RBC 3.02 M/mm3 (3.60-5.2); RDW 16.5 % (11.6-15.6); WHITE BLOOD COUNT 7.4 K/mm3 (4.0-10.0)
[2022-11-04 07:45] LABS: CALCIUM 7.6 mg/dL (8.5-10.1)
[2022-11-04 07:46] LABS: ALBUMIN 1.4 g/dl (3.4-5.0); BLOOD UREA NITROGEN 8.9 mg/dL (7-18); MAGNESIUM 1.9 mg/dL (1.8-2.4)
[2022-11-04 07:49] LABS: CREATININE 0.2 mg/dL (0.55-1.3); PHOSPHOROUS 3.4 mg/dL (2.5-4.9)
[2022-11-04 07:51] LABS: TOT PROT 4.6 g/dl (6.4-8.2)
[2022-11-04 07:52] LABS: BILIRUBIN,TOTAL 0.2 mg/dL (0.2-1)
[2022-11-04] MEDS: AMINO ACIDS/PROTEIN HYDROLYS 30 ML LIQUID.PKT PO SCH ×3 (08:00→17:17)
[2022-11-04 08:57] LABS: ANISOCYTOSIS 3+; MACROCYTOSIS 0
[2022-11-04] MEDS: FLUDROCORTISONE ACETATE 0.1 MG TABLET (FP) PO SCH (10:00)
[2022-11-04] MEDS ORDERED: MULTIVITAMINS (DAILY MVI) TABLET (FP) PO SCH (10:00)
[2022-11-04] MEDS ORDERED: ZINC SULFATE 220 MG CAPSULE (FP) PO SCH (10:00)
[2022-11-04] MEDS ORDERED: ASCORBIC ACID 500 MG TABLET (FP) PO SCH (10:00)
[2022-11-04] MEDS: ASCORBIC ACID 500 MG TABLET (FP) PO SCH (10:28)
[2022-11-04] MEDS: ZINC SULFATE 220 MG CAPSULE (FP) PO SCH (10:28)
[2022-11-04] MEDS: GABAPENTIN 100 MG CAPSULE PO SCH ×2 (10:28→21:52)
[2022-11-04] MEDS: MULTIVITAMINS (DAILY MVI) TABLET (FP) PO SCH (10:29)
[2022-11-04] MEDS: FOLIC ACID 1 MG TABLET (FP) PO SCH (10:29)
[2022-11-04] MEDS: FAMOTIDINE 20 MG TABLET PO SCH ×2 (10:29→21:52)
[2022-11-04] MEDS: BENZTROPINE MESYLATE 1 MG TABLET PO SCH ×2 (10:30→21:52)
[2022-11-04] MEDS: MUPIROCIN 2% TOPICAL OINTMENT FOR DECOLONIZATION NS SCH ×2 (10:43→21:52)
[2022-11-04] MEDS: COLLAGENASE CLOSTRIDIUM HIST. 30 GRAMS TUBE TP SCH (10:49)
[2022-11-04] MEDS ORDERED: ONDANSETRON 4 MG/2 ML VIAL IVPUSH ONE (12:22)
[2022-11-04] MEDS: VASOPRESSIN 40 UNITS/100 ML BAG IV SCH ×2 (13:00→15:54)
[2022-11-04] MEDS: NOREPINEPHRINE BITARTRATE 16,000 MCG in SODIUM CHLORIDE 484 ML IV SCH (15:50)
[2022-11-04] MEDS: SODIUM CHLORIDE 1,000 ML IV SCH (15:55)
[2022-11-04] MEDS ORDERED: HEPARIN INFUSION - 25,000 UNITS/500 ML INFUS.BAG IVPB SCH ×2 (16:00→16:15)
[2022-11-04] MEDS: risperiDONE 1 MG TABLET PO SCH (21:52)
[2022-11-04] MEDS: PRIMIDONE 50 MG TABLET PO SCH (21:52)
[2022-11-04] MEDS: MIRTAZAPINE 15 MG TABLET (FP) PO SCH (21:52)
[2022-11-04] MEDS: CHLORHEXIDINE GLUCONATE 4% CLEANSER FOR DECOLONIZATION TP SCH (21:52)
[2022-11-05] MEDS: PIPERACILLIN/TAZOB 3.375 GM 3.375 GM in DEXTROSE 5%-WATER - 50 ML IVPB SCH ×3 (01:01→17:03)
[2022-11-05] MEDS: HYDROCORTISONE SOD SUCCINATE 100 MG/2 ML VIAL IVPUSH SCH ×3 (02:00→18:26)
[2022-11-05] MEDS: VANCOMYCIN/WATER FOR INJ (PEG) 1,000 MG/200 ML BAG IVPB SCH ×2 (02:57→15:57)
[2022-11-05] MEDS: LEVOTHYROXINE NA 25 MCG TABLET (FP) PO SCH (06:15)
[2022-11-05] MEDS: INSULIN SLIDING SCALE (NOVOLOG) 1 VIAL SQ SCH ×4 (06:21→22:13)
[2022-11-05 07:47] LABS: BASO % 0.1 % (0-2.0); EOS % 0.1 % (0-4.5); HEMATOCRIT 25.2 % (32.4-45.2); HEMOGLOBIN 8.2 GM/dL (10.7-15.3); LYMPH % 11.5 % (8-40); MCH 28.6 pg (25.7-33.7); MCHC 32.7 g/dl (32.0-36.0); MEAN CELL VOLUME 87.5 fl (80-96); MEAN PLT VOLUME 6.9 fl (7.5-11.1); MONO % 5.2 % (3.8-10.2); NEUT % 83.1 % (42.8-82.8); PLATELET COUNT 408 10^3/uL (134-434); RBC 2.89 M/mm3 (3.60-5.2); RDW 16.6 % (11.6-15.6); WHITE BLOOD COUNT 8.1 K/mm3 (4.0-10.0)
[2022-11-05 08:09] LABS: ALBUMIN 1.5 g/dl (3.4-5.0); CALCIUM 7.7 mg/dL (8.5-10.1)
[2022-11-05 08:10] LABS: BLOOD UREA NITROGEN 8.9 mg/dL (7-18)
[2022-11-05 08:12] LABS: PHOSPHOROUS 3.1 mg/dL (2.5-4.9)
[2022-11-05 08:13] LABS: CREATININE 0.3 mg/dL (0.55-1.3)
[2022-11-05 08:14] LABS: BILIRUBIN,TOTAL 0.3 mg/dL (0.2-1); TOT PROT 4.5 g/dl (6.4-8.2)
[2022-11-05] MEDS: FOLIC ACID 1 MG TABLET (FP) PO SCH (09:10)
[2022-11-05] MEDS: BENZTROPINE MESYLATE 1 MG TABLET PO SCH ×2 (09:11→22:14)
[2022-11-05] MEDS: MULTIVITAMINS (DAILY MVI) TABLET (FP) PO SCH (09:11)
[2022-11-05] MEDS: FAMOTIDINE 20 MG TABLET PO SCH ×2 (09:12→22:14)
[2022-11-05] MEDS: ZINC SULFATE 220 MG CAPSULE (FP) PO SCH (09:12)
[2022-11-05] MEDS: GABAPENTIN 100 MG CAPSULE PO SCH ×2 (09:12→22:14)
[2022-11-05] MEDS: ASCORBIC ACID 500 MG TABLET (FP) PO SCH (09:12)
[2022-11-05] MEDS: FLUDROCORTISONE ACETATE 0.1 MG TABLET (FP) PO SCH (09:12)
[2022-11-05] MEDS: MUPIROCIN 2% TOPICAL OINTMENT FOR DECOLONIZATION NS SCH ×2 (10:05→22:14)
[2022-11-05] MEDS: COLLAGENASE CLOSTRIDIUM HIST. 30 GRAMS TUBE TP SCH (10:06)
[2022-11-05] MEDS: AMINO ACIDS/PROTEIN HYDROLYS 30 ML LIQUID.PKT PO SCH ×3 (10:06→16:49)
[2022-11-05] MEDS ORDERED: AMIODARONE IN DEXTROSE,ISO-OSM 150 MG/100 ML BAG IVPB ONE (10:23)
[2022-11-05] MEDS: AMIODARONE IN DEXTROSE,ISO-OSM 360 MG/200 ML BAG IV SCH ×2 (11:20→16:46)
[2022-11-05] MEDS: NOREPINEPHRINE BITARTRATE 16,000 MCG in SODIUM CHLORIDE 484 ML IV SCH (15:51)
[2022-11-05] MEDS: VASOPRESSIN 40 UNITS/100 ML BAG IV SCH (15:52)
[2022-11-05] MEDS: SODIUM CHLORIDE 1,000 ML IV SCH (16:02)
[2022-11-05] MEDS: PRIMIDONE 50 MG TABLET PO SCH (22:14)
[2022-11-05] MEDS: CHLORHEXIDINE GLUCONATE 4% CLEANSER FOR DECOLONIZATION TP SCH (22:14)
[2022-11-05] MEDS: risperiDONE 1 MG TABLET PO SCH (22:14)
[2022-11-05] MEDS: MIRTAZAPINE 15 MG TABLET (FP) PO SCH (22:14)
[2022-11-06] MEDS ORDERED: HEPARIN INFUSION - 25,000 UNITS/500 ML INFUS.BAG IVPB SCH ×3 (01:42→02:00)
[2022-11-06] MEDS ORDERED: HEPARIN - 25,000 UNIT in SODIUM CHLORIDE 495 ML IV SCH (01:45)
[2022-11-06] MEDS ORDERED: HEPARIN NA (PORCINE) 5,000 UNITS/ML 1ML VIAL IVPUSH PRN ×2 (01:48)
[2022-11-06] MEDS: PIPERACILLIN/TAZOB 3.375 GM 3.375 GM in DEXTROSE 5%-WATER - 50 ML IVPB SCH (02:00)
[2022-11-06] MEDS: VASOPRESSIN 40 UNITS/100 ML BAG IV SCH ×2 (02:33→16:37)
[2022-11-06] MEDS: HYDROCORTISONE SOD SUCCINATE 100 MG/2 ML VIAL IVPUSH SCH ×3 (04:30→18:24)
[2022-11-06] MEDS: VANCOMYCIN/WATER FOR INJ (PEG) 1,000 MG/200 ML BAG IVPB SCH (04:31)
[2022-11-06] MEDS: INSULIN SLIDING SCALE (NOVOLOG) 1 VIAL SQ SCH ×4 (06:34→22:00)
[2022-11-06] MEDS: LEVOTHYROXINE NA 25 MCG TABLET (FP) PO SCH (06:34)
[2022-11-06 07:31] LABS: BASO % 0.3 % (0-2.0); EOS % 0.1 % (0-4.5); HEMATOCRIT 24.6 % (32.4-45.2); HEMOGLOBIN 7.9 GM/dL (10.7-15.3); LYMPH % 17.1 % (8-40); MCH 28.6 pg (25.7-33.7); MCHC 32.3 g/dl (32.0-36.0); MEAN CELL VOLUME 88.6 fl (80-96); MEAN PLT VOLUME 6.9 fl (7.5-11.1); MONO % 5.3 % (3.8-10.2); NEUT % 77.2 % (42.8-82.8); PLATELET COUNT 381 10^3/uL (134-434); RBC 2.77 M/mm3 (3.60-5.2); RDW 16.2 % (11.6-15.6); WHITE BLOOD COUNT 9.5 K/mm3 (4.0-10.0)
[2022-11-06 08:27] LABS: ALBUMIN 1.6 g/dl (3.4-5.0); BILIRUBIN,TOTAL 0.2 mg/dL (0.2-1); BLOOD UREA NITROGEN 15.7 mg/dL (7-18); CALCIUM 7.6 mg/dL (8.5-10.1); CREATININE 0.4 mg/dL (0.55-1.3); PHOSPHOROUS 2.8 mg/dL (2.5-4.9); TOT PROT 4.5 g/dl (6.4-8.2)
[2022-11-06] MEDS: AMINO ACIDS/PROTEIN HYDROLYS 30 ML LIQUID.PKT PO SCH ×3 (08:40→17:25)
[2022-11-06] MEDS ORDERED: POTASSIUM CHLORIDE ORAL LIQUID 20 MEQ/15 ML PO ONE (09:07)
[2022-11-06] MEDS: ASCORBIC ACID 500 MG TABLET (FP) PO SCH (09:38)
[2022-11-06] MEDS: MULTIVITAMINS (DAILY MVI) TABLET (FP) PO SCH (09:39)
[2022-11-06] MEDS: FLUDROCORTISONE ACETATE 0.1 MG TABLET (FP) PO SCH (09:39)
[2022-11-06] MEDS: FOLIC ACID 1 MG TABLET (FP) PO SCH (09:39)
[2022-11-06] MEDS: GABAPENTIN 100 MG CAPSULE PO SCH ×2 (09:39→21:15)
[2022-11-06] MEDS: FAMOTIDINE 20 MG TABLET PO SCH ×2 (09:39→21:15)
[2022-11-06] MEDS: BENZTROPINE MESYLATE 1 MG TABLET PO SCH ×2 (09:39→21:15)
[2022-11-06] MEDS: ZINC SULFATE 220 MG CAPSULE (FP) PO SCH (09:39)
[2022-11-06] MEDS ORDERED: PIPERACILLIN/TAZOB 3.375 GM 3.375 GM in DEXTROSE 5%-WATER - 50 ML IVPB SCH (10:00)
[2022-11-06] MEDS: COLLAGENASE CLOSTRIDIUM HIST. 30 GRAMS TUBE TP SCH (10:10)
[2022-11-06] MEDS: KCL 10 MEQ IVPB 10 MEQ/100 ML INFUS.BAG IVPB SCH ×3 (10:45→12:44)
[2022-11-06] MEDS: ENOXAPARIN NA (PORCINE) 80 MG/0.8 ML DISP.SYRIN SQ SCH ×2 (10:48→21:15)
[2022-11-06] MEDS: MUPIROCIN 2% TOPICAL OINTMENT FOR DECOLONIZATION NS SCH ×2 (10:54→21:14)
[2022-11-06] MEDS: AMIODARONE IN DEXTROSE,ISO-OSM 360 MG/200 ML BAG IV SCH ×3 (11:00→18:45)
[2022-11-06] MEDS: LACTATED RINGERS SOLUTION 1,000 ML/1,000 ML INFUS.BAG IV SCH (11:10)
[2022-11-06] MEDS: CEFTRIAXONE 2 GM in DEXTROSE 5%-WATER 100 ML IVPB SCH (15:52)
[2022-11-06] MEDS: NOREPINEPHRINE BITARTRATE 16,000 MCG in SODIUM CHLORIDE 484 ML IV SCH (16:37)
[2022-11-06] MEDS: SODIUM CHLORIDE IVPB SCH (17:50)
[2022-11-06] MEDS: DAPTOMYCIN IVPB SCH (17:50)
[2022-11-06] MEDS: CHLORHEXIDINE GLUCONATE 4% CLEANSER FOR DECOLONIZATION TP SCH (21:15)
[2022-11-06] MEDS: MIRTAZAPINE 15 MG TABLET (FP) PO SCH (21:15)
[2022-11-06] MEDS: PRIMIDONE 50 MG TABLET PO SCH (21:15)
[2022-11-06] MEDS: risperiDONE 1 MG TABLET PO SCH (21:16)
[2022-11-07] MEDS ORDERED: ALBUTEROL SO4 0.5 % INH SOLN 2.5 MG/0.5 ML VIAL.NEB. NEB ONE (02:27)
[2022-11-07] MEDS ORDERED: ACETAMINOPHEN 1000 MG/100 ML BAG IVPB ONE (02:27)
[2022-11-07] MEDS: HYDROCORTISONE SOD SUCCINATE 100 MG/2 ML VIAL IVPUSH SCH ×3 (03:28→22:40)
[2022-11-07] MEDS: LEVOTHYROXINE NA 25 MCG TABLET (FP) PO SCH (06:28)
[2022-11-07] MEDS: INSULIN SLIDING SCALE (NOVOLOG) 1 VIAL SQ SCH ×4 (06:39→22:10)
[2022-11-07 08:40] LABS: HEMATOCRIT 28.3 % (32.4-45.2); HEMOGLOBIN 8.9 GM/dL (10.7-15.3); MCH 28.6 pg (25.7-33.7); MCHC 31.6 g/dl (32.0-36.0); MEAN CELL VOLUME 90.6 fl (80-96); MEAN PLT VOLUME 6.7 fl (7.5-11.1); PLATELET COUNT 399 10^3/uL (134-434); RBC 3.12 M/mm3 (3.60-5.2); RDW 17.1 % (11.6-15.6); WHITE BLOOD COUNT 20.2 K/mm3 (4.0-10.0)
[2022-11-07] MEDS: KCL 10 MEQ IVPB 10 MEQ/100 ML INFUS.BAG IVPB SCH ×3 (09:20→11:40)
[2022-11-07 09:29] LABS: CALCIUM 7.9 mg/dL (8.5-10.1)
[2022-11-07 09:30] LABS: ALBUMIN 1.9 g/dl (3.4-5.0); BLOOD UREA NITROGEN 17.4 mg/dL (7-18); MAGNESIUM 2.1 mg/dL (1.8-2.4)
[2022-11-07 09:33] LABS: CREATININE 0.4 mg/dL (0.55-1.3); PHOSPHOROUS 2.9 mg/dL (2.5-4.9)
[2022-11-07 09:34] LABS: TOT PROT 5.1 g/dl (6.4-8.2)
[2022-11-07 09:35] LABS: BILIRUBIN,TOTAL 0.1 mg/dL (0.2-1)
[2022-11-07 09:59] LABS: ANISOCYTOSIS 1+; MACROCYTOSIS 1+
[2022-11-07] MEDS: CEFTRIAXONE 2 GM in DEXTROSE 5%-WATER 100 ML IVPB SCH (10:40)
[2022-11-07] MEDS: AMINO ACIDS/PROTEIN HYDROLYS 30 ML LIQUID.PKT PO SCH ×3 (10:41→17:32)
[2022-11-07] MEDS: ENOXAPARIN NA (PORCINE) 80 MG/0.8 ML DISP.SYRIN SQ SCH ×2 (10:42→22:39)
[2022-11-07] MEDS: ZINC SULFATE 220 MG CAPSULE (FP) PO SCH (10:42)
[2022-11-07] MEDS: ASCORBIC ACID 500 MG TABLET (FP) PO SCH (10:42)
[2022-11-07] MEDS: MULTIVITAMINS (DAILY MVI) TABLET (FP) PO SCH (10:42)
[2022-11-07] MEDS: FLUDROCORTISONE ACETATE 0.1 MG TABLET (FP) PO SCH (10:43)
[2022-11-07] MEDS: FOLIC ACID 1 MG TABLET (FP) PO SCH (10:43)
[2022-11-07] MEDS: GABAPENTIN 100 MG CAPSULE PO SCH ×2 (10:43→22:39)
[2022-11-07] MEDS: FAMOTIDINE 20 MG TABLET PO SCH ×2 (10:44→22:40)
[2022-11-07] MEDS: COLLAGENASE CLOSTRIDIUM HIST. 30 GRAMS TUBE TP SCH (10:46)
[2022-11-07] MEDS: MUPIROCIN 2% TOPICAL OINTMENT FOR DECOLONIZATION NS SCH ×2 (10:46→22:38)
[2022-11-07] MEDS: metoPROLOL SUCCINATE 25 MG TAB.SR.24H (FP) PO SCH (10:58)
[2022-11-07] MEDS: LACTATED RINGERS SOLUTION 1,000 ML/1,000 ML INFUS.BAG IV SCH (11:06)
[2022-11-07] MEDS: BENZTROPINE MESYLATE 1 MG TABLET PO SCH ×2 (11:10→22:38)
[2022-11-07] MEDS ORDERED: METOPROLOL TARTRATE 5 MG/5 ML VIAL IVPUSH PRN (12:09)
[2022-11-07 13:20] LABS: ALLENS TEST POSITIVE; ARTERIAL BLD GAS O2 SATURATION 97.6 % (95-98); ARTERIAL BLOOD GAS BASE EXCESS -6.4 mmol/L (-2-2); ARTERIAL BLOOD GAS PO2 108.2 mmHg (80-100); ARTERIAL BLOOD GAS pH 7.325 (7.350-7.450)
[2022-11-07] MEDS: VASOPRESSIN 40 UNITS/100 ML BAG IV SCH (14:32)
[2022-11-07 16:12] VITALS: BMI 24.7
[2022-11-07] MEDS ORDERED: FUROSEMIDE 40 MG/4 ML INJECTABLE VIAL IVPUSH ONE (18:39)
[2022-11-07] MEDS: DAPTOMYCIN IVPB SCH (18:40)
[2022-11-07] MEDS: SODIUM CHLORIDE IVPB SCH (18:40)
[2022-11-07] MEDS ORDERED: SENNOSIDES/DOCUSATE COMBO (SENNA PLUS) TABLET (UD) PO SCH (22:00)
[2022-11-07] MEDS ORDERED: SENNOSIDES 8.6MG TABLET (FP) PO SCH (22:00)
[2022-11-07] MEDS: CHLORHEXIDINE GLUCONATE 4% CLEANSER FOR DECOLONIZATION TP SCH (22:39)
[2022-11-07] MEDS: PRIMIDONE 50 MG TABLET PO SCH (22:39)
[2022-11-07] MEDS: MIRTAZAPINE 15 MG TABLET (FP) PO SCH (22:40)
[2022-11-07] MEDS: risperiDONE 1 MG TABLET PO SCH (22:40)
[2022-11-08] MEDS: NOREPINEPHRINE 0.9 % NACL 8 MG/250 ML BAG IVPB SCH (02:45)
[2022-11-08] MEDS: LEVOTHYROXINE NA 25 MCG TABLET (FP) PO SCH (06:29)
[2022-11-08] MEDS: INSULIN SLIDING SCALE (NOVOLOG) 1 VIAL SQ SCH ×2 (06:33→11:11)
[2022-11-08 07:11] LABS: HEMATOCRIT 26.2 % (32.4-45.2); HEMOGLOBIN 8.4 GM/dL (10.7-15.3); MCH 29.1 pg (25.7-33.7); MCHC 32.3 g/dl (32.0-36.0); MEAN PLT VOLUME 7.1 fl (7.5-11.1); PLATELET COUNT 361 10^3/uL (134-434); RBC 2.91 M/mm3 (3.60-5.2); RDW 16.5 % (11.6-15.6); WHITE BLOOD COUNT 12.2 K/mm3 (4.0-10.0)
[2022-11-08 07:30] LABS: BLOOD UREA NITROGEN 16.7 mg/dL (7-18); MAGNESIUM 1.9 mg/dL (1.8-2.4)
[2022-11-08 07:33] LABS: CREATININE 0.3 mg/dL (0.55-1.3); PHOSPHOROUS 2.9 mg/dL (2.5-4.9)
[2022-11-08 07:34] LABS: BILIRUBIN,TOTAL 0.2 mg/dL (0.2-1)
[2022-11-08 08:54] LABS: ANISOCYTOSIS 0; HELMET CELLS 0; HOWELL-JOLLY BODIES 0; MACROCYTOSIS 0; OVALOCYTE 0; ROULEAU 0; SICKELED CELLS 0; TARGET CELLS 0; TEAR DROP CELLS 0; TOXIC GRANULATION 0
[2022-11-08] MEDS: ENOXAPARIN NA (PORCINE) 80 MG/0.8 ML DISP.SYRIN SQ SCH ×2 (09:32→21:28)
[2022-11-08] MEDS: BENZTROPINE MESYLATE 1 MG TABLET PO SCH ×2 (09:33→21:29)
[2022-11-08] MEDS: MULTIVITAMINS (DAILY MVI) TABLET (FP) PO SCH (09:33)
[2022-11-08] MEDS: FLUDROCORTISONE ACETATE 0.1 MG TABLET (FP) PO SCH (09:34)
[2022-11-08] MEDS: ASCORBIC ACID 500 MG TABLET (FP) PO SCH (09:34)
[2022-11-08] MEDS: GABAPENTIN 100 MG CAPSULE PO SCH ×2 (09:34→21:29)
[2022-11-08] MEDS: ZINC SULFATE 220 MG CAPSULE (FP) PO SCH (09:34)
[2022-11-08] MEDS: FOLIC ACID 1 MG TABLET (FP) PO SCH (09:34)
[2022-11-08] MEDS: FAMOTIDINE 20 MG TABLET PO SCH ×2 (09:34→21:29)
[2022-11-08] MEDS: HYDROCORTISONE SOD SUCCINATE 100 MG/2 ML VIAL IVPUSH SCH ×2 (09:34→21:28)
[2022-11-08] MEDS: metoPROLOL SUCCINATE 25 MG TAB.SR.24H (FP) PO SCH (09:35)
[2022-11-08] MEDS: CEFTRIAXONE 2 GM in DEXTROSE 5%-WATER 100 ML IVPB SCH (09:36)
[2022-11-08] MEDS: MUPIROCIN 2% TOPICAL OINTMENT FOR DECOLONIZATION NS SCH (09:36)
[2022-11-08] MEDS: AMINO ACIDS/PROTEIN HYDROLYS 30 ML LIQUID.PKT PO SCH ×3 (09:37→18:25)
[2022-11-08] MEDS: COLLAGENASE CLOSTRIDIUM HIST. 30 GRAMS TUBE TP SCH (11:11)
[2022-11-08] MEDS: SIMETHICONE 80 MG TAB.CHEW (FP) PO SCH ×3 (13:55→21:28)
[2022-11-08] MEDS: MIDODRINE HCL 5 MG TABLET PO SCH ×2 (13:55→18:23)
[2022-11-08] MEDS: DAPTOMYCIN IVPB SCH (17:23)
[2022-11-08] MEDS: SODIUM CHLORIDE IVPB SCH (17:23)
[2022-11-08] MEDS ORDERED: POTASSIUM CHLORIDE ORAL LIQUID 20 MEQ/15 ML PO ONE ×2 (18:28→21:00)
[2022-11-08] MEDS ORDERED: MIDODRINE HCL 5 MG TABLET PO SCH (21:00)
[2022-11-08] MEDS: risperiDONE 1 MG TABLET PO SCH (21:29)
[2022-11-08] MEDS: PRIMIDONE 50 MG TABLET PO SCH (21:30)
[2022-11-08] MEDS: MIRTAZAPINE 15 MG TABLET (FP) PO SCH (21:30)
[2022-11-08] MEDS: CHLORHEXIDINE GLUCONATE 4% CLEANSER FOR DECOLONIZATION TP SCH (21:32)
[2022-11-09] MEDS: NOREPINEPHRINE 0.9 % NACL 8 MG/250 ML BAG IVPB SCH (02:44)
[2022-11-09] MEDS: MIDODRINE HCL 5 MG TABLET PO SCH ×3 (02:44→17:10)
[2022-11-09] MEDS: LEVOTHYROXINE NA 25 MCG TABLET (FP) PO SCH (06:02)
[2022-11-09 07:31] LABS: BASO % 0.1 % (0-2.0); HEMATOCRIT 24.1 % (32.4-45.2); HEMOGLOBIN 7.8 GM/dL (10.7-15.3); LYMPH % 20.7 % (8-40); MCH 29.4 pg (25.7-33.7); MCHC 32.3 g/dl (32.0-36.0); MEAN CELL VOLUME 91.1 fl (80-96); MEAN PLT VOLUME 6.9 fl (7.5-11.1); MONO % 7.5 % (3.8-10.2); NEUT % 71.7 % (42.8-82.8); PLATELET COUNT 335 10^3/uL (134-434); RBC 2.65 M/mm3 (3.60-5.2); RDW 17.3 % (11.6-15.6); WHITE BLOOD COUNT 8.8 K/mm3 (4.0-10.0)
[2022-11-09 07:44] LABS: CALCIUM 7.5 mg/dL (8.5-10.1)
[2022-11-09 07:45] LABS: ALBUMIN 1.7 g/dl (3.4-5.0); BLOOD UREA NITROGEN 10.7 mg/dL (7-18); MAGNESIUM 2.3 mg/dL (1.8-2.4)
[2022-11-09 07:48] LABS: CREATININE 0.3 mg/dL (0.55-1.3); PHOSPHOROUS 2.4 mg/dL (2.5-4.9)
[2022-11-09 07:49] LABS: BILIRUBIN,TOTAL 0.2 mg/dL (0.2-1); TOT PROT 4.5 g/dl (6.4-8.2)
[2022-11-09] MEDS: ENOXAPARIN NA (PORCINE) 80 MG/0.8 ML DISP.SYRIN SQ SCH ×2 (09:33→21:55)
[2022-11-09] MEDS: HYDROCORTISONE SOD SUCCINATE 100 MG/2 ML VIAL IVPUSH SCH ×2 (09:34→21:54)
[2022-11-09] MEDS: FOLIC ACID 1 MG TABLET (FP) PO SCH (09:34)
[2022-11-09] MEDS: ZINC SULFATE 220 MG CAPSULE (FP) PO SCH (09:34)
[2022-11-09] MEDS: SIMETHICONE 80 MG TAB.CHEW (FP) PO SCH ×3 (09:34→17:10)
[2022-11-09] MEDS: FLUDROCORTISONE ACETATE 0.1 MG TABLET (FP) PO SCH (09:35)
[2022-11-09] MEDS: MULTIVITAMINS (DAILY MVI) TABLET (FP) PO SCH (09:36)
[2022-11-09] MEDS: ASCORBIC ACID 500 MG TABLET (FP) PO SCH (09:36)
[2022-11-09] MEDS: FAMOTIDINE 20 MG TABLET PO SCH ×2 (09:36→21:54)
[2022-11-09] MEDS: AMINO ACIDS/PROTEIN HYDROLYS 30 ML LIQUID.PKT PO SCH ×3 (09:36→17:03)
[2022-11-09] MEDS: GABAPENTIN 100 MG CAPSULE PO SCH ×2 (09:36→21:54)
[2022-11-09] MEDS: BENZTROPINE MESYLATE 1 MG TABLET PO SCH ×2 (09:38→21:55)
[2022-11-09] MEDS: CEFTRIAXONE 2 GM in DEXTROSE 5%-WATER 100 ML IVPB SCH (10:17)
[2022-11-09] MEDS: COLLAGENASE CLOSTRIDIUM HIST. 30 GRAMS TUBE TP SCH (10:18)
[2022-11-09] MEDS ORDERED: POTASSIUM PHOSPHATE 15 MM in DEXTROSE 5%-WATER - 100 ML IVPB ONE (10:30)
[2022-11-09] MEDS ORDERED: metoPROLOL SUCCINATE 25 MG TAB.SR.24H (FP) PO SCH ×2 (10:30→11:24)
[2022-11-09] MEDS ORDERED: SODIUM CHLORIDE 0.45% 1,000 ML IV SCH ×2 (12:00→17:00)
[2022-11-09] MEDS ORDERED: DEXTROSE 5%-WATER - 1,000 ML IV SCH (16:45)
[2022-11-09] MEDS: SODIUM CHLORIDE IVPB SCH (17:02)
[2022-11-09] MEDS: DAPTOMYCIN IVPB SCH (17:02)
[2022-11-09] MEDS: MIRTAZAPINE 15 MG TABLET (FP) PO SCH (21:54)
[2022-11-09] MEDS: risperiDONE 1 MG TABLET PO SCH (21:55)
[2022-11-09] MEDS: CHLORHEXIDINE GLUCONATE 4% CLEANSER FOR DECOLONIZATION TP SCH (21:55)
[2022-11-09] MEDS: PRIMIDONE 50 MG TABLET PO SCH (21:55)
[2022-11-10] MEDS: LEVOTHYROXINE NA 25 MCG TABLET (FP) PO SCH (06:46)
[2022-11-10] MEDS ORDERED: BENZTROPINE MESYLATE 1 MG TABLET PO SCH (10:00)
[2022-11-10 10:29] LABS: BASO % 0.3 % (0-2.0); EOS % 0.2 % (0-4.5); HEMATOCRIT 25.7 % (32.4-45.2); HEMOGLOBIN 8.2 GM/dL (10.7-15.3); LYMPH % 29.5 % (8-40); MCH 28.9 pg (25.7-33.7); MCHC 31.9 g/dl (32.0-36.0); MEAN CELL VOLUME 90.6 fl (80-96); MEAN PLT VOLUME 7.5 fl (7.5-11.1); MONO % 6.2 % (3.8-10.2); NEUT % 63.8 % (42.8-82.8); PLATELET COUNT 352 10^3/uL (134-434); RBC 2.83 M/mm3 (3.60-5.2); RDW 17.5 % (11.6-15.6); WHITE BLOOD COUNT 11.3 K/mm3 (4.0-10.0)
[2022-11-10] MEDS: MULTIVITAMINS (DAILY MVI) TABLET (FP) PO SCH (10:53)
[2022-11-10] MEDS: AMINO ACIDS/PROTEIN HYDROLYS 30 ML LIQUID.PKT PO SCH ×3 (10:53→17:32)
[2022-11-10 10:54] LABS: ALBUMIN 1.7 g/dl (3.4-5.0); BLOOD UREA NITROGEN 9.2 mg/dL (7-18); CALCIUM 7.4 mg/dL (8.5-10.1); MAGNESIUM 2.1 mg/dL (1.8-2.4)
[2022-11-10] MEDS: ASCORBIC ACID 500 MG TABLET (FP) PO SCH (10:54)
[2022-11-10] MEDS: metoPROLOL SUCCINATE 25 MG TAB.SR.24H (FP) PO SCH (10:54)
[2022-11-10] MEDS: FOLIC ACID 1 MG TABLET (FP) PO SCH (10:55)
[2022-11-10] MEDS: ZINC SULFATE 220 MG CAPSULE (FP) PO SCH (10:55)
[2022-11-10] MEDS: FAMOTIDINE 20 MG TABLET PO SCH ×2 (10:55→21:41)
[2022-11-10] MEDS: GABAPENTIN 100 MG CAPSULE PO SCH ×2 (10:55→21:41)
[2022-11-10 10:57] LABS: CREATININE 0.2 mg/dL (0.55-1.3); PHOSPHOROUS 2.2 mg/dL (2.5-4.9)
[2022-11-10] MEDS: CEFTRIAXONE 2 GM in DEXTROSE 5%-WATER 100 ML IVPB SCH (10:57)
[2022-11-10] MEDS: BENZTROPINE MESYLATE PO SCH (10:57)
[2022-11-10] MEDS: ENOXAPARIN NA (PORCINE) 80 MG/0.8 ML DISP.SYRIN SQ SCH ×2 (10:58→21:39)
[2022-11-10 10:59] LABS: BILIRUBIN,TOTAL 0.2 mg/dL (0.2-1); TOT PROT 4.2 g/dl (6.4-8.2)
[2022-11-10] MEDS: MIDODRINE HCL 5 MG TABLET PO SCH ×3 (11:00→17:37)
[2022-11-10] MEDS ORDERED: POTASSIUM PHOSPHATE 30 MM in SODIUM CHLORIDE 500 ML IVPB ONE (13:30)
[2022-11-10] MEDS: COLLAGENASE CLOSTRIDIUM HIST. 30 GRAMS TUBE TP SCH (14:32)
[2022-11-10] MEDS: DIVALPROEX SODIUM 250 MG TABLET E.C. PO SCH ×2 (15:21→21:40)
[2022-11-10] MEDS ORDERED: INSULIN SLIDING SCALE (NOVOLOG) 1 VIAL SQ SCH (16:30)
[2022-11-10] MEDS: DAPTOMYCIN IVPB SCH (18:49)
[2022-11-10] MEDS: SODIUM CHLORIDE IVPB SCH (18:49)
[2022-11-10] MEDS: MIRTAZAPINE 15 MG TABLET (FP) PO SCH (21:40)
[2022-11-10] MEDS: risperiDONE 1 MG TABLET PO SCH (21:42)
[2022-11-10] MEDS: PRIMIDONE 50 MG TABLET PO SCH (21:42)
[2022-11-11] MEDS: BENZTROPINE MESYLATE PO SCH ×3 (01:03→23:00)
[2022-11-11] MEDS: LEVOTHYROXINE NA 25 MCG TABLET (FP) PO SCH ×2 (05:48→06:19)
[2022-11-11] MEDS: AMINO ACIDS/PROTEIN HYDROLYS 30 ML LIQUID.PKT PO SCH ×4 (08:58→16:36)
[2022-11-11] MEDS: MIDODRINE HCL 5 MG TABLET PO SCH ×3 (10:04→17:42)
[2022-11-11] MEDS: CEFTRIAXONE 2 GM in DEXTROSE 5%-WATER 100 ML IVPB SCH (10:39)
[2022-11-11] MEDS: DIVALPROEX SODIUM 250 MG TABLET E.C. PO SCH ×2 (12:23→22:59)
[2022-11-11] MEDS: FOLIC ACID 1 MG TABLET (FP) PO SCH (12:24)
[2022-11-11] MEDS: ENOXAPARIN NA (PORCINE) 80 MG/0.8 ML DISP.SYRIN SQ SCH ×2 (12:25→22:58)
[2022-11-11] MEDS: ASCORBIC ACID 500 MG TABLET (FP) PO SCH ×2 (12:25→22:59)
[2022-11-11] MEDS: ZINC SULFATE 220 MG CAPSULE (FP) PO SCH (12:25)
[2022-11-11] MEDS: MULTIVITAMINS (DAILY MVI) TABLET (FP) PO SCH (12:26)
[2022-11-11] MEDS: FAMOTIDINE 20 MG TABLET PO SCH ×2 (12:26→22:59)
[2022-11-11] MEDS: metoPROLOL SUCCINATE 25 MG TAB.SR.24H (FP) PO SCH (12:26)
[2022-11-11] MEDS: GABAPENTIN 100 MG CAPSULE PO SCH ×2 (12:26→22:59)
[2022-11-11] MEDS: COLLAGENASE CLOSTRIDIUM HIST. 30 GRAMS TUBE TP SCH (12:27)
[2022-11-11] MEDS: DAPTOMYCIN IVPB SCH (16:39)
[2022-11-11] MEDS: SODIUM CHLORIDE IVPB SCH (16:39)
[2022-11-11 16:56] LABS: BASO % 0.3 % (0-2.0); EOS % 2.5 % (0-4.5); HEMATOCRIT 29.4 % (32.4-45.2); HEMOGLOBIN 9.5 GM/dL (10.7-15.3); LYMPH % 26.4 % (8-40); MCH 29.6 pg (25.7-33.7); MCHC 32.3 g/dl (32.0-36.0); MEAN CELL VOLUME 91.8 fl (80-96); MEAN PLT VOLUME 7.4 fl (7.5-11.1); MONO % 4.6 % (3.8-10.2); NEUT % 66.2 % (42.8-82.8); PLATELET COUNT 334 10^3/uL (134-434); RDW 19.3 % (11.6-15.6); WHITE BLOOD COUNT 10.6 K/mm3 (4.0-10.0)
[2022-11-11 17:23] LABS: ALBUMIN 1.8 g/dl (3.4-5.0); BLOOD UREA NITROGEN 5.4 mg/dL (7-18); CALCIUM 7.6 mg/dL (8.5-10.1); MAGNESIUM 2.2 mg/dL (1.8-2.4)
[2022-11-11 17:26] LABS: CREATININE 0.3 mg/dL (0.55-1.3); PHOSPHOROUS 3.1 mg/dL (2.5-4.9)
[2022-11-11 17:28] LABS: BILIRUBIN,TOTAL 0.4 mg/dL (0.2-1); TOT PROT 4.4 g/dl (6.4-8.2)
[2022-11-11] MEDS: MIRTAZAPINE 15 MG TABLET (FP) PO SCH (22:59)
[2022-11-11] MEDS: risperiDONE 1 MG TABLET PO SCH (23:00)
[2022-11-11] MEDS: PRIMIDONE 50 MG TABLET PO SCH (23:00)
[2022-11-12] MEDS: LEVOTHYROXINE NA 25 MCG TABLET (FP) PO SCH (06:19)
[2022-11-12] MEDS: AMINO ACIDS/PROTEIN HYDROLYS 30 ML LIQUID.PKT PO SCH ×3 (08:09→17:20)
[2022-11-12] MEDS: MIDODRINE HCL 5 MG TABLET PO SCH ×3 (09:39→17:21)
[2022-11-12] MEDS: CEFTRIAXONE 2 GM in DEXTROSE 5%-WATER 100 ML IVPB SCH (10:10)
[2022-11-12] MEDS: ENOXAPARIN NA (PORCINE) 80 MG/0.8 ML DISP.SYRIN SQ SCH ×2 (13:39→22:12)
[2022-11-12] MEDS: ZINC SULFATE 220 MG CAPSULE (FP) PO SCH (13:40)
[2022-11-12] MEDS: metoPROLOL SUCCINATE 25 MG TAB.SR.24H (FP) PO SCH (13:40)
[2022-11-12] MEDS: FOLIC ACID 1 MG TABLET (FP) PO SCH (13:41)
[2022-11-12] MEDS: BENZTROPINE MESYLATE PO SCH ×2 (13:41→22:32)
[2022-11-12] MEDS: ASCORBIC ACID 500 MG TABLET (FP) PO SCH ×2 (13:41→22:14)
[2022-11-12] MEDS: FAMOTIDINE 20 MG TABLET PO SCH ×2 (13:41→22:13)
[2022-11-12] MEDS: DIVALPROEX SODIUM 250 MG TABLET E.C. PO SCH ×2 (13:41→22:13)
[2022-11-12] MEDS: COLLAGENASE CLOSTRIDIUM HIST. 30 GRAMS TUBE TP SCH (13:42)
[2022-11-12] MEDS: MULTIVITAMINS (DAILY MVI) TABLET (FP) PO SCH (13:42)
[2022-11-12] MEDS: GABAPENTIN 100 MG CAPSULE PO SCH ×2 (13:42→22:13)
[2022-11-12] MEDS: SODIUM CHLORIDE IVPB SCH (16:22)
[2022-11-12] MEDS: DAPTOMYCIN IVPB SCH (16:22)
[2022-11-12] MEDS: MIRTAZAPINE 15 MG TABLET (FP) PO SCH (22:13)
[2022-11-12] MEDS: PRIMIDONE 50 MG TABLET PO SCH (22:14)
[2022-11-12] MEDS: risperiDONE 1 MG TABLET PO SCH (22:16)
[2022-11-13] MEDS: LEVOTHYROXINE NA 25 MCG TABLET (FP) PO SCH (06:32)
[2022-11-13] MEDS: AMINO ACIDS/PROTEIN HYDROLYS 30 ML LIQUID.PKT PO SCH ×3 (08:25→17:32)
[2022-11-13] MEDS: CEFTRIAXONE 2 GM in DEXTROSE 5%-WATER 100 ML IVPB SCH (10:16)
[2022-11-13] MEDS: FAMOTIDINE 20 MG TABLET PO SCH ×2 (13:03→22:50)
[2022-11-13] MEDS: metoPROLOL SUCCINATE 25 MG TAB.SR.24H (FP) PO SCH ×2 (13:04→16:02)
[2022-11-13] MEDS: GABAPENTIN 100 MG CAPSULE PO SCH ×2 (13:07→22:50)
[2022-11-13] MEDS: BENZTROPINE MESYLATE PO SCH ×2 (13:08→22:54)
[2022-11-13] MEDS: DIVALPROEX SODIUM 250 MG TABLET E.C. PO SCH ×2 (13:09→22:50)
[2022-11-13] MEDS: ZINC SULFATE 220 MG CAPSULE (FP) PO SCH (13:10)
[2022-11-13] MEDS: FOLIC ACID 1 MG TABLET (FP) PO SCH (13:10)
[2022-11-13] MEDS: MULTIVITAMINS (DAILY MVI) TABLET (FP) PO SCH (13:11)
[2022-11-13] MEDS: MIDODRINE HCL 5 MG TABLET PO SCH ×3 (13:11→17:32)
[2022-11-13] MEDS: ASCORBIC ACID 500 MG TABLET (FP) PO SCH ×2 (13:11→22:50)
[2022-11-13] MEDS: ENOXAPARIN NA (PORCINE) 80 MG/0.8 ML DISP.SYRIN SQ SCH ×2 (15:56→22:49)
[2022-11-13] MEDS: MEROPENEM 1 GM in DEXTROSE 5%-WATER 100 ML IVPB SCH (17:35)
[2022-11-13] MEDS: DAPTOMYCIN IVPB SCH (17:38)
[2022-11-13] MEDS: SODIUM CHLORIDE IVPB SCH (17:38)
[2022-11-13] MEDS: MIRTAZAPINE 15 MG TABLET (FP) PO SCH (22:50)
[2022-11-13] MEDS: PRIMIDONE 50 MG TABLET PO SCH (22:51)
[2022-11-13] MEDS: risperiDONE 1 MG TABLET PO SCH (22:53)
[2022-11-14 01:10] VITALS: TEMP 98.5
[2022-11-14] MEDS: MEROPENEM 1 GM in DEXTROSE 5%-WATER 100 ML IVPB SCH (02:48)
[2022-11-14 05:23] VITALS: BP 124/77; PULSE 97; RESP 16
[2022-11-14] MEDS: LEVOTHYROXINE NA 25 MCG TABLET (FP) PO SCH (06:46)
[2022-11-14] MEDS: COLLAGENASE CLOSTRIDIUM HIST. 30 GRAMS TUBE TP SCH ×2 (09:16→10:50)
[2022-11-14] MEDS ORDERED: MEROPENEM 1 GM in DEXTROSE 5%-WATER 100 ML IVPB SCH (10:00)
[2022-11-14] MEDS: ENOXAPARIN NA (PORCINE) 80 MG/0.8 ML DISP.SYRIN SQ SCH (10:47)
[2022-11-14] MEDS: MIDODRINE HCL 5 MG TABLET PO SCH (10:48)
[2022-11-14] MEDS: AMINO ACIDS/PROTEIN HYDROLYS 30 ML LIQUID.PKT PO SCH (10:49)
[2022-11-14] MEDS: GABAPENTIN 100 MG CAPSULE PO SCH (10:49)
[2022-11-14] MEDS: FOLIC ACID 1 MG TABLET (FP) PO SCH (10:49)
[2022-11-14] MEDS: MULTIVITAMINS (DAILY MVI) TABLET (FP) PO SCH (10:49)
[2022-11-14] MEDS: DIVALPROEX SODIUM 250 MG TABLET E.C. PO SCH (10:49)
[2022-11-14] MEDS: metoPROLOL SUCCINATE 25 MG TAB.SR.24H (FP) PO SCH (10:50)
[2022-11-14] MEDS: ASCORBIC ACID 500 MG TABLET (FP) PO SCH (10:50)
[2022-11-14] MEDS: ZINC SULFATE 220 MG CAPSULE (FP) PO SCH (10:51)
[2022-11-14] MEDS: FAMOTIDINE 20 MG TABLET PO SCH (10:52)
[2022-11-14] MEDS: BENZTROPINE MESYLATE PO SCH (10:55)
== END 2022-11-14 11:40 | DRG 710 ==
LOC: JER 13:16 → JERBED 15:17 → JICU 20:25 → J7W 11-10 00:05
PROVIDERS: ADMIT Internal Medicine Pulmonary Disease; ATTEND Internal Medicine
PROC: 05HN33Z Insertion of Infusion Device into Left Internal Jugular Vein, Percutaneous Approach (ICD-10-PCS; principal; 2022-11-01)
PROC: B544ZZA Ultrasonography of Left Jugular Veins, Guidance (ICD-10-PCS; 2022-11-01)
PROC: 30233N1 Transfusion of Nonautologous Red Blood Cells into Peripheral Vein, Percutaneous Approach (ICD-10-PCS; 2022-11-02)
PROC: 0QB10ZX Excision of Sacrum, Open Approach, Diagnostic (ICD-10-PCS; 2022-11-03)
PROC: 0KBP0ZZ Excision of Left Hip Muscle, Open Approach (ICD-10-PCS; 2022-11-03)
PROC: 0KBN0ZZ Excision of Right Hip Muscle, Open Approach (ICD-10-PCS; 2022-11-03)
PROC: 02HV33Z Insertion of Infusion Device into Superior Vena Cava, Percutaneous Approach (ICD-10-PCS; 2022-11-13)
PROC: B548ZZA Ultrasonography of Superior Vena Cava, Guidance (ICD-10-PCS; 2022-11-13)
DX: A41.89 Other specified sepsis (principal); R65.21 Severe sepsis with septic shock; I10 Essential (primary) hypertension; K21.9 Gastro-esophageal reflux disease without esophagitis; F20.0 Paranoid schizophrenia; G40.909 Epilepsy, unspecified, not intractable, without status epilepticus; I48.91 Unspecified atrial fibrillation; E55.9 Vitamin D deficiency, unspecified; G82.20 Paraplegia, unspecified; E87.0 Hyperosmolality and hypernatremia; D64.9 Anemia, unspecified; E03.9 Hypothyroidism, unspecified; R00.0 Tachycardia, unspecified; E11.51 Type 2 diabetes mellitus with diabetic peripheral angiopathy without gangrene; J44.9 Chronic obstructive pulmonary disease, unspecified; L89.154 Pressure ulcer of sacral region, stage 4; L89.624 Pressure ulcer of left heel, stage 4; L89.614 Pressure ulcer of right heel, stage 4; K80.20 Calculus of gallbladder without cholecystitis without obstruction; R79.89 Other specified abnormal findings of blood chemistry; G25.89 Other specified extrapyramidal and movement disorders; M46.28 Osteomyelitis of vertebra, sacral and sacrococcygeal region; K59.00 Constipation, unspecified; E78.5 Hyperlipidemia, unspecified; N31.9 Neuromuscular dysfunction of bladder, unspecified; G24.01 Drug induced subacute dyskinesia; G20 Parkinson's disease; N39.0 Urinary tract infection, site not specified; B96.20 Unspecified Escherichia coli [E. coli] as the cause of diseases classified elsewhere; B96.4 Proteus (mirabilis) (morganii) as the cause of diseases classified elsewhere; Z86.718 Personal history of other venous thrombosis and embolism
CPT/HCPCS: 0241U-QW; 36415; 36430; 36569; 36600; 70450-TC; 71045-TC-FY; 71250-TC; 73590-TC-LT-FY; 73610-TC-LT-FY; 73630-TC-LT; 73700-TC-RT; 74018-TC-FY; 74174-TC; 76705-TC; 76775-TC; 80048; 80053; 81003; 82272; 82550; 82553; 82803; 82962; 83010; 83036; 83605; 83615; 83735; 84100; 84484; 84703; 85025; 85045; 85610; 85730; 86850; 86880; 86900; 86901; 86922; 87040; 87070; 87075; 87076; 87086; 87186; 87205; 87324; 87449; 88304-TC; 93005; 93010; 94640; 99285-25; C9803-CS; G0480; J0282; J0878; J1644; J3490; P9058; U0003; U0005